=== PATIENT | female | born 1965 | race Caucasian/White ===

== ENCOUNTER 2020-08-14 10:04 | Outpatient (REF) | payer MEDICARE, MEDICAID, SELFPAY ==
--- NOTE | 2020-08-14 10:55 | XR_ITS ---
EXAMINATION: XR CHEST 2 VIEWS CLINICAL INFORMATION: Pneumonia. COMPARISON: Priors are unavailable. TECHNIQUE: PA and lateral radiographs of the chest were obtained. FINDINGS: No focal consolidation, pulmonary edema, or pleural effusion. The cardiomediastinal silhouette is normal. 2 neurostimulator leads overlie the midthoracic spinal canal. IMPRESSION: No acute cardiopulmonary disease.
[2020-08-14 11:24] LABS: Hematocrit 36.9 % (37-47); Hemoglobin 11.5 g/dl (12.0-16.0); Mean Corpuscular HGB Conc 31.2 g/dl (31.0-35.0); Mean Corpuscular Hemoglobin 27.8 pg (27.0-33.0); Mean Corpuscular Volume 89.1 fL (80-98); Mean Platelet Volume 11.3 fL (9.4-12.3); Platelet Count 399 X10*3/uL (160-400); Red Blood Count 4.14 X10*6/uL (4.20-5.50); White Blood Count 6.7 X10*3/uL (4.8-10.8)
== END 2020-08-14 10:05 | disposition home or self-care (01) ==
LOC: HO.HMGCLDS 10:04
PROVIDERS: PCP Nurse Practitioner Family; Visit Provider Nurse Practitioner Family
DX: J18.9 Pneumonia, unspecified organism (principal)
CPT/HCPCS: 36415; 71046; 85027

== ENCOUNTER → 2020-08-20 11:41 | Outpatient (BNVA) | payer MEDICARE, MEDICAID, SELFPAY | PROVIDERS: Visit Provider Internal Medicine | DX: F11.20 Opioid dependence, uncomplicated (principal); F17.210 Nicotine dependence, cigarettes, uncomplicated; Z71.6 Tobacco abuse counseling | CPT/HCPCS: 99212 ==

== ENCOUNTER → 2020-09-03 10:03 | Outpatient (BNVA) | payer MEDICARE, MEDICAID, SELFPAY | PROVIDERS: Visit Provider Internal Medicine | DX: F11.99 Opioid use, unspecified with unspecified opioid-induced disorder (principal) | CPT/HCPCS: 80305; 99211 ==

== ENCOUNTER → 2020-09-17 10:13 | Outpatient (BNVA) | payer MEDICARE, MEDICAID, SELFPAY | PROVIDERS: Visit Provider Internal Medicine | DX: F11.20 Opioid dependence, uncomplicated (principal) | CPT/HCPCS: 80305; 99212 ==

== ENCOUNTER 2020-10-01 | Outpatient (REF) | payer MEDICARE, MEDICAID, SELFPAY | END 2020-10-01 00:01 | disposition home or self-care (01) | LOC: HO.LAB | PROVIDERS: Visit Provider Internal Medicine | DX: F11.99 Opioid use, unspecified with unspecified opioid-induced disorder (principal) | CPT/HCPCS: 80348 ==

== ENCOUNTER → 2020-10-01 10:06 | Outpatient (BNVA) | payer MEDICARE, MEDICAID, SELFPAY | PROVIDERS: Visit Provider Internal Medicine | DX: F11.20 Opioid dependence, uncomplicated (principal) | CPT/HCPCS: 80305; 80348; Q3014 ==

== ENCOUNTER → 2020-10-14 10:51 | Outpatient (BNVA) | payer MEDICARE, MEDICAID, SELFPAY | PROVIDERS: Visit Provider Internal Medicine | DX: Z76.89 Persons encountering health services in other specified circumstances (principal) ==

== ENCOUNTER → 2020-10-28 13:51 | Outpatient (BNVA) | payer MEDICARE, MEDICAID, SELFPAY | PROVIDERS: PCP Nurse Practitioner Family; Visit Provider Internal Medicine | DX: F11.99 Opioid use, unspecified with unspecified opioid-induced disorder (principal); Z76.89 Persons encountering health services in other specified circumstances ==

== ENCOUNTER → 2020-11-11 12:12 | Outpatient (BNVA) | payer MEDICARE, MEDICAID, SELFPAY | PROVIDERS: PCP Nurse Practitioner Family; Visit Provider Internal Medicine | DX: Z76.89 Persons encountering health services in other specified circumstances (principal) ==

== ENCOUNTER → 2020-11-25 11:02 | Outpatient (BNVA) | payer MEDICARE, MEDICAID, SELFPAY | PROVIDERS: Visit Provider Internal Medicine | DX: F11.99 Opioid use, unspecified with unspecified opioid-induced disorder (principal) | CPT/HCPCS: 99212 ==

== ENCOUNTER → 2020-12-30 11:50 | Outpatient (BNVA) | payer MEDICARE, MEDICAID, SELFPAY | PROVIDERS: Visit Provider Internal Medicine | DX: Z13.89 Encounter for screening for other disorder (principal) | CPT/HCPCS: Q3014 ==

== ENCOUNTER → 2021-01-27 10:02 | Outpatient (BNVA) | payer MEDICARE, MEDICAID, SELFPAY | PROVIDERS: Visit Provider Internal Medicine | DX: F11.20 Opioid dependence, uncomplicated (principal) | CPT/HCPCS: 80305; 99211 ==

== ENCOUNTER → 2021-02-24 10:34 | Outpatient (BNVA) | payer MEDICARE, MEDICAID, SELFPAY | PROVIDERS: Visit Provider Internal Medicine | DX: Z51.81 Encounter for therapeutic drug level monitoring (principal) | CPT/HCPCS: 80305; 99211 ==

== ENCOUNTER → 2021-03-24 09:43 | Outpatient (BNVA) | payer MEDICARE, MEDICAID, SELFPAY | PROVIDERS: Visit Provider Internal Medicine | DX: F11.20 Opioid dependence, uncomplicated (principal) | CPT/HCPCS: 80305; 99212 ==

== ENCOUNTER → 2021-04-21 12:58 | Outpatient (BNVA) | payer MEDICARE, MEDICAID, SELFPAY | PROVIDERS: Visit Provider Internal Medicine | DX: F11.99 Opioid use, unspecified with unspecified opioid-induced disorder (principal); Z51.81 Encounter for therapeutic drug level monitoring | CPT/HCPCS: 80305; 99211 ==

== ENCOUNTER → 2021-05-19 08:44 | Outpatient (BNVA) | payer MEDICARE, MEDICAID, SELFPAY | PROVIDERS: Visit Provider Internal Medicine | DX: Z51.81 Encounter for therapeutic drug level monitoring (principal) | CPT/HCPCS: 80305; 99211 ==

== ENCOUNTER → 2021-06-24 11:48 | Outpatient (BNVA) | payer MEDICARE, MEDICAID, SELFPAY | PROVIDERS: Visit Provider Internal Medicine | DX: F11.20 Opioid dependence, uncomplicated (principal) | CPT/HCPCS: 80305; 99212 ==

== ENCOUNTER 2021-07-09 06:15 | Outpatient (REF) | payer MEDICARE, MEDICAID, SELFPAY ==
[2021-07-09 11:20] LABS: Glucose Urine UA NEG (NEG); Leukocyte Esterase Urine NEG (NEG); Nitrite Urine NEG (NEG); Specific Gravity - Urine <= 1.005 (1.005-1.025); Urine Blood NEG (NEG); Urine Ketones NEG (NEG); Urine Protein NEG (NEG-TRACE)
[2021-07-09 11:23] LABS: Appearance Urine CLEAR; Color Urine YELLOW
[2021-07-09 12:09] LABS: Alanine Aminotransferase 14 U/L (0-31); Albumin Level 4.1 g/dL (3.5-5.0); Alkaline Phosphatase 96 U/L (39-117); Anion Gap 12 (12-20); Aspartate Amino Transferase 16 U/L (5-31); Bilirubin Total 0.3 mg/dL (0.0-1.0); Blood Urea Nitrogen 10 mg/dL (9-16); Calcium 9.1 mg/dL (8.4-10.2); Carbon Dioxide 27 mmol/L (22-29); Chloride 104 mmol/L (96-108); Cholesterol 172 mg/dL; Estimated Glomerular Filt Rate > 60; Glucose Fasting 103 mg/dL (60-99); HDL Cholesterol 46 mg/dL; LDL Cholesterol Calculated 103 mg/dl; Potassium 4.2 mmol/L (3.3-5.1); Sodium 139 mmol/L (135-145); Total Protein 7.1 g/dL (6.5-8.0); Triglycerides 118 mg/dL
[2021-07-09 12:10] LABS: TSH reflex Free T4 7.24 uIU/mL (0.32-4.0)
[2021-07-09 13:50] LABS: Free T4 (Free Thyroxine) 0.79 ng/dL (0.71-1.85)
== END 2021-07-09 06:16 | disposition home or self-care (01) ==
LOC: HO.HMGCLDS 06:15
PROVIDERS: PCP Nurse Practitioner Family; Visit Provider Nurse Practitioner Family
DX: I83.11 Varicose veins of right lower extremity with inflammation (principal); M79.89 Other specified soft tissue disorders
CPT/HCPCS: 36415; 80053; 80061; 81003; 84439; 84443; 99202

== ENCOUNTER → 2021-07-22 09:37 | Outpatient (BNVA) | payer MEDICARE, MEDICAID, SELFPAY | PROVIDERS: Visit Provider Internal Medicine | DX: F11.99 Opioid use, unspecified with unspecified opioid-induced disorder (principal); F17.210 Nicotine dependence, cigarettes, uncomplicated; Z96.651 Presence of right artificial knee joint; Z91.09 Other allergy status, other than to drugs and biological substances; Z51.81 Encounter for therapeutic drug level monitoring; Z79.899 Other long term (current) drug therapy | CPT/HCPCS: 80305; 99212 ==

== ENCOUNTER 2021-08-03 10:25 | Outpatient (REF) | payer MEDICARE, MEDICAID, SELFPAY ==
--- NOTE | ~2021-08-03 | US_ITS ---
EXAMINATION: RIGHT and LEFT LOWER EXTREMITY VENOUS ULTRASOUND (Reflux Exam) CLINICAL INDICATION: leg pain and varicose veins. COMPARISON: None. TECHNIQUE: Color flow triplex imaging and compression Doppler was performed to evaluate both the deep and the superficial systems bilaterally. To evaluate the superficial system, the examination was performed in the upright position. Color-flow Doppler ultrasound and compression ultrasound were utilized. In addition, maneuvers were utilized to demonstrate reflux. FINDINGS: 1. DEEP VENOUS ULTRASOUND OF THE RIGHT LOWER EXTREMITY: Respiratory variation, normal compression and augmented flow are noted in the right common femoral vein as well as the right popliteal vein and there is no evidence of deep venous thrombosis at these locations. There is no evidence of reflux in the deep system in either the common femoral vein or the popliteal vein. There is no evidence of a Cortez's cyst. 2. SUPERFICIAL ULTRASOUND WITH DOPPLER OF RIGHT LOWER EXTREMITY: The right great saphenous vein at the saphenofemoral junction measures 8 mm, at the mid thigh 5 mm, pfuky-bzz-bmpc 4 mm, phqej-ohb-gose 3 mm, at mid calf 3 mm and at the ankle measures 3 mm. There is no reflux demonstrated in the right great saphenous vein. There is an accessory lateral greater saphenous vein that measures 3 to 4 mm and does not demonstrate reflux and The right small saphenous vein measures 2-3 mm and shows no reflux. 3. DEEP VENOUS ULTRASOUND OF THE LEFT LOWER EXTREMITY: Respiratory variation, normal compression and augmented flow are noted in the left common femoral vein as well as the left popliteal vein and there is no evidence of deep venous thrombosis at these locations. There is deep venous reflux in the left common femoral vein measuring 0.6 seconds. There is no evidence of 5.3 x 1.5 x 3.2 cm Cortez's cyst. 4. SUPERFICIAL ULTRASOUND WITH DOPPLER OF LEFT LOWER EXTREMITY: Left great saphenous vein at the saphenofemoral junction measures 7 mm, at the mid thigh 3 mm, mqpdq-shk-mxtl 3 mm, vfpor-fzp-qqhx 3 mm, at mid calf 2 mm and at the ankle measures 2 mm. There is no reflux demonstrated in the left great saphenous vein. There is an accessory lateral greater saphenous vein that measures 2 to 3 mm and does not demonstrate reflux The left small saphenous vein measures 2-3 mm and shows no reflux. US/US venous duplex LE BI IMPRESSION: 1. No evidence of DVT. Left popliteal vein 0.6 seconds deep venous reflux. 2. The saphenous systems are competent bilaterally.
== END 2021-08-03 10:26 | disposition home or self-care (01) ==
LOC: HO.US 10:25
PROVIDERS: PCP Nurse Practitioner Family; Visit Provider Surgery Vascular Surgery
DX: Z13.89 Encounter for screening for other disorder (principal)
CPT/HCPCS: 93970

== ENCOUNTER 2021-08-03 14:45 | Outpatient (REF) | payer MEDICARE, MEDICAID, SELFPAY ==
[2021-08-03 16:32] LABS: Hematocrit 36.3 % (37-47); Hemoglobin 11.6 g/dl (12.0-16.0); Mean Corpuscular Hemoglobin 28.9 pg (27.0-33.0); Mean Corpuscular Volume 90.3 fL (80-98); Mean Platelet Volume 11.2 fL (9.4-12.3); Platelet Count 274 X10*3/uL (160-400); Red Blood Count 4.02 X10*6/uL (4.20-5.50); Red Cell Distribution Width 13.2 % (11.0-16.0); White Blood Count 7.1 X10*3/uL (4.8-10.8)
[2021-08-03 16:56] LABS: Anion Gap 12 (12-20); Blood Urea Nitrogen 10 mg/dL (9-16); Carbon Dioxide 28 mmol/L (22-29); Chloride 105 mmol/L (96-108); Estimated Glomerular Filt Rate > 60; Glucose Random 82 mg/dL (60-115); Potassium 4.3 mmol/L (3.3-5.1); Sodium 141 mmol/L (135-145)
== END 2021-08-03 14:46 | disposition home or self-care (01) ==
LOC: HO.HMGCLDS 14:45
PROVIDERS: PCP Nurse Practitioner Family; Visit Provider Internal Medicine
DX: R21 Rash and other nonspecific skin eruption (principal); I83.813 Varicose veins of bilateral lower extremities with pain
CPT/HCPCS: 36415; 80048; 85027; 86140; 93970

== ENCOUNTER → 2021-08-13 10:05 | Outpatient (BNVA) | payer MEDICARE, MEDICAID, SELFPAY | PROVIDERS: PCP Nurse Practitioner Family; Visit Provider Surgery Vascular Surgery | DX: M79.89 Other specified soft tissue disorders (principal) | CPT/HCPCS: 99212 ==

== ENCOUNTER 2021-08-19 09:53 | Outpatient (REF) | payer MEDICARE, MEDICAID, SELFPAY ==
[2021-08-19 18:28] LABS: Fentanyl, urine Not Detected (Not Detect)
== END 2021-08-19 09:54 | disposition home or self-care (01) ==
LOC: HO.LNP 09:53
PROVIDERS: PCP Nurse Practitioner Family; Visit Provider Internal Medicine
DX: F11.20 Opioid dependence, uncomplicated (principal); F32.9 Major depressive disorder, single episode, unspecified; F17.210 Nicotine dependence, cigarettes, uncomplicated; J30.2 Other seasonal allergic rhinitis; Z88.8 Allergy status to other drugs, medicaments and biological substances
CPT/HCPCS: 80305; 80307; 99212

== ENCOUNTER → 2021-09-16 09:47 | Outpatient (BNVA) | payer MEDICARE, MEDICAID, SELFPAY | PROVIDERS: PCP Nurse Practitioner Family; Visit Provider Internal Medicine | DX: F11.20 Opioid dependence, uncomplicated (principal) | CPT/HCPCS: 80305; 99212 ==

== ENCOUNTER → 2021-09-30 08:33 | Outpatient (REF) | payer MEDICARE, MEDICAID, SELFPAY ==
--- NOTE | 2021-09-30 08:37 | CA_ITS ---
INDICATIONS: Murmur, Unspecified HT: 5'7 WT: 240 BSA: BP: 120/60 STENOGRAPHER: VH M-MODE MEASUREMENTS: LVd: 5.22 LVs: 2.9 IVSd: 1.02 IVSs: LVPWd: 1.06 LVPWs: ASC.Aorta: 3.0 RVd: 3.84 AO Root: 2.8 LA: 4.2 AV Cusps: LVOT: 2.1 EF%: 60-65% TAPSE: 2.33 OTHER: EFFUSION: O THROMBUS: O RVSP: 16 mmHg Mitral E/A: 101 / 62.6 = 1.6 E Med: 6.31 E Lat. 13.6 DOPPLER MEASUREMENTS: AORTIC: PP mmHg MP mmHg Velocity: 182 m/s Valve Area: 1.88 cm^2 PULMONIC: PP mmHg Velocity: 107 m/s TRICUSPID: PP mmHg Velocity: 144 m/s RA Vol. 25.9 IVC: 2.49 LA Vol. 41.5 RVS 16.4 MTDD
--- NOTE | 2021-09-30 08:37 | CA_ITS ---
Transthoracic Echocardiogram Patient (Last, First, Middle): Aaliyah Espinoza, Gender: Female Date of : 1965 Age: 56 Procedure Date: 09/30/2021 Procedure Type: Transthoracic Echocardiogram Location: OP Height: 170.18 cm Weight: 108.86 kg BSA: 2.18 m2 Heart Rate: bpm BP: 120 / 60 mmHg Youth Development Professional: Referring MD: Trevor Ahn [facility] Possum Trapper: Jono Tovar MD Symptoms: R01.1 - Cardiac murmur, unspecified Study Quality: Fair ECG Rhythm: Sinus Conclusions: - 1. Normal LV systolic function with regional wall motion abnormality of the basal inferior inferoseptal wall 2. Mildly dilated left atrium 3. Calcification noted at the base of aortic valve leaflets with mild aortic stenosis 4. Normal RV systolic pressure 5. No pericardial effusion Findings Left Ventricle Normal left ventricular size, thickness, and systolic function. The visually estimated ejection fraction is between 60-65%. There is evidence of regional wall motion abnormalities. Spectral Doppler is indicative of a normal filling pattern. Wall Motion Rest Echo Findings The basal inferior and basal inferoseptal segments are akinetic. All other scored wall segments showed normal motion. Right Ventricle Normal right ventricular cavity size and systolic function. Atria The left atrium is mildly dilated. Interatrial shunt cannot be excluded. The right atrium is normal in size. Aortic Valve There is moderate calcification of the aortic valve. There are fibrocalcifications on the aortic valve wall. There is mild aortic valve stenosis. The peak aortic gradient is 14 mmHg.The mean gradient is 6 mmHg. The aortic valve area is 1.88 cm2. There is no aortic valve regurgitation. Mitral Valve Normal mitral valve structure and function. There is trace mitral valve regurgitation. There is no mitral valve stenosis. Pulmonic Valve The pulmonic valve was not well visualized. Tricuspid Valve Likely normal tricuspid valve structure and function. There is trace tricuspid valve regurgitation. The right ventricular systolic pressure is normal. The right ventricular systolic pressure is 16 mmHg. Normal right atrial pressure. There is no evidence of pulmonary hypertension. Great Vessels All visible segments of the aorta are normal in size. The pulmonary artery was not well visualized. Venous The inferior vena cava is mildly dilated and collapses greater than 50% with inspiration. Pericardium/Pleural There is no evidence of pericardial effusion. Prior Study Comparison No previous study in the last 5 years for comparison Measurements 2D Linear Measurements IVSd: 1.02 0.6-0.9/0.6-1.0 cm LVIDd: 5.22 3.9-5.3/4.2-5.9 cm LVIDd Index: 2.39 2.4-3.2/2.2-3.1 cm/m2 LVIDs: 2.90 2.0-3.6 cm LVPWd: 1.06 0.7-1.1 cm Ao Root: 2.80 2.1-3.5 cm LA Diam: 4.20 2.7-3.8/3.0-4.0 cm LAIDs Index: 1.93 1.5-2.3 cm/m2 LV Mass: 256.65 67-162/88-224 g LV Mass Index: 117.73 43-95/49-115 g/m2 LVOT Diam: 2.10 3.0+(-)1.3 cm 2D Systolic Function EF 4C: 55.80 >55% EF 2C: 66.90 >55% EF BiP: 62.40 >55% Mitral Valve MV Pk E: 1.01 MV PK A: 0.63 MV Decel Time: 208.00 E/A: 1.60 E'Lateral: 13.60 E'Medial: 6.31 E/E' Med: 16.00 E/E' Lat: 7.40 PHT: 61.00 MVA PHT: 3.61 Decel [place]: 4.87 Aortic Valve AoV Pk Cristhian: 1.85 AoV Mn Cristhian: 1.16 AoV VTI: 0.40 AoV Pk Grad: 14.00 Aov Mn Grad: 6.00 KENNY Cont.VTI: 1.88 LVOT LVOT Pk Cristhian: 0.86 LVOT Mn Cristhian: 0.58 LVOT VTI: 0.22 LVOT Pk Grad: 3.00 LVOT Mn Grad: 2.00 LVOT Diam: 2.10 LVOT Area: 3.46 Diastolic Function MV Pk E: 1.01 MV Pk A: 0.63 E/A: 1.60 E'Medial: 6.31 E/E' Med: 16.00 E' Laterial: 13.60 E/E' Lat: 7.40 Right Ventricle TAPSE (mm): 2.33 Tricuspid Valve TR Pk Cristhian: 1.44 TR Pk Grad: 8.00 RA Press: 8.00 RVSP: 16.00 Great Vessels Aorta Ao Root-2D: 2.80 2.0-3.7 cm Ao Asc: 3.00 2.1-3.4 cm Pulmonary Valve PV Pk Cristhian: 1.05 Peak PV Grad: 4.00 Updated in Other Vendor System with Status of Final Jono Tovar MD electronically signed on 10/06/2021 8:37:53 AM with status of Final
== END ==
LOC: HO.CARD 08:33
PROVIDERS: Visit Provider Nurse Practitioner Family
DX: R01.1 Cardiac murmur, unspecified (principal)
CPT/HCPCS: 93306

== ENCOUNTER → 2021-10-16 11:43 | Outpatient (BNVA) | payer MEDICARE, MEDICAID, SELFPAY | PROVIDERS: PCP Nurse Practitioner Family; Referring Provider Nurse Practitioner Family; Visit Provider Internal Medicine | DX: Z51.81 Encounter for therapeutic drug level monitoring (principal); F11.20 Opioid dependence, uncomplicated | CPT/HCPCS: 80305; 99212 ==

== ENCOUNTER 2021-11-05 07:40 | Outpatient (REF) | payer MEDICARE, MEDICAID, SELFPAY ==
[2021-11-05 12:22] LABS: TSH reflex Free T4 4.04 uIU/mL (0.32-4.0)
[2021-11-05 13:10] LABS: Free T4 (Free Thyroxine) 0.99 ng/dL (0.71-1.85)
[2021-11-09 21:51] LABS: Thyroid Peroxidase Antibodies 1 IU/mL (<9)
== END 2021-11-05 07:41 | disposition home or self-care (01) ==
LOC: HO.HMGCLDS 07:40
PROVIDERS: PCP Nurse Practitioner Family; Visit Provider Nurse Practitioner Family
DX: E03.9 Hypothyroidism, unspecified (principal)
CPT/HCPCS: 36415; 84439; 84443; 86376

== ENCOUNTER → 2021-11-11 10:33 | Outpatient (BNVA) | payer MEDICARE, MEDICAID, SELFPAY | PROVIDERS: PCP Nurse Practitioner Family; Visit Provider Internal Medicine | DX: Z51.81 Encounter for therapeutic drug level monitoring (principal); F11.20 Opioid dependence, uncomplicated | CPT/HCPCS: 80305 ==

== ENCOUNTER → 2021-12-09 10:04 | Outpatient (BNVA) | payer MEDICARE, MEDICAID, SELFPAY | PROVIDERS: PCP Nurse Practitioner Family; Visit Provider Internal Medicine | DX: Z51.81 Encounter for therapeutic drug level monitoring (principal); F11.20 Opioid dependence, uncomplicated | CPT/HCPCS: 80305; 99211 ==

== ENCOUNTER 2021-12-23 09:04 | Outpatient (REF) | payer MEDICARE, MEDICAID, SELFPAY ==
--- NOTE | ~2021-12-23 | MM_ITS ---
EXAMINATION: MM SCREENING DIGITAL BREAST TOMOSYNTHESIS, BILATERAL CLINICAL INFORMATION: Screening. Asymptomatic. The lifetime risk of breast cancer based on the Tyrer-Cuzick Model is 5%. COMPARISON: Mammography: 10/03/2017 TECHNIQUE: Digital breast tomosynthesis is performed in both the craniocaudal and mediolateral oblique views along with computer-aided detection (CAD). Synthesized 2D images are generated from the tomosynthesis. Additional left MLO view is provided. FINDINGS: There are scattered areas of fibroglandular density (ACR BI-RADS breast composition Category b). There are no significant masses, abnormal calcifications, or other abnormalities. Parenchymal pattern is similar to prior exam. There is no developing density or architectural abnormality. The axilla and skin contours are unremarkable. No significant changes. MM/MM tomosynthesis screening BI IMPRESSION: No mammographic evidence of malignancy. ASSESSMENT: BI-RADS 1: Negative RECOMMENDATION: Routine annual mammography screening. This patient's information was entered into a reminder system with a target due date for their next mammogram.
== END 2021-12-23 09:05 | disposition home or self-care (01) ==
LOC: HO.MAMMO 09:04
PROVIDERS: Visit Provider Nurse Practitioner Family
DX: Z12.31 Encounter for screening mammogram for malignant neoplasm of breast (principal)
CPT/HCPCS: 77063; 77067

== ENCOUNTER → 2022-01-05 09:58 | Outpatient (BNVA) | payer MEDICARE, MEDICAID, SELFPAY | PROVIDERS: PCP Nurse Practitioner Family; Visit Provider Internal Medicine | DX: Z51.81 Encounter for therapeutic drug level monitoring (principal); F11.20 Opioid dependence, uncomplicated | CPT/HCPCS: 80305 ==

== ENCOUNTER 2022-01-27 15:14 | Outpatient (REF) | payer MEDICARE, MEDICAID, SELFPAY ==
--- NOTE | ~2022-01-27 | XR_ITS ---
EXAMINATION: XR FOOT, LEFT CLINICAL INFORMATION: Left foot pain COMPARISON: None TECHNIQUE: AP, lateral, and oblique views of the left foot. FINDINGS: There is a prominent plantar calcaneal spur. There is prominent calcification which appears segmented about the site of insertion of the Achilles tendon on the calcaneus. There is some adjacent soft tissue prominence which may be inflammatory in nature or possibly related to an Achilles tendon rupture. XR/XR foot LT 2V IMPRESSION: Calcaneal spurs with segmentation of Achilles spur and adjacent soft tissue prominence as described. Achilles tendon rupture not excluded.
== END 2022-01-27 15:15 | disposition home or self-care (01) ==
LOC: HO.HMGCX 15:14
PROVIDERS: PCP Nurse Practitioner Family; Visit Provider Nurse Practitioner Family
DX: M79.672 Pain in left foot (principal)
CPT/HCPCS: 73620

== ENCOUNTER → 2022-02-02 11:42 | Outpatient (BNVA) | payer MEDICARE, MEDICAID, SELFPAY | PROVIDERS: PCP Nurse Practitioner Family; Visit Provider Internal Medicine | DX: F11.20 Opioid dependence, uncomplicated (principal) | CPT/HCPCS: 99211 ==

== ENCOUNTER → 2022-03-02 10:02 | Outpatient (BNVA) | payer MEDICARE, MEDICAID, SELFPAY | PROVIDERS: PCP Nurse Practitioner Family; Visit Provider Internal Medicine | DX: F11.20 Opioid dependence, uncomplicated (principal) | CPT/HCPCS: 80305; 99212 ==

== ENCOUNTER 2022-03-04 09:35 | Outpatient (REF) | payer MEDICARE, MEDICAID, SELFPAY ==
--- NOTE | ~2022-03-04 | XR_ITS ---
EXAMINATION: XR KNEE AP STANDING, BILATERAL CLINICAL INFORMATION: Left knee pain. COMPARISON: None TECHNIQUE: AP bilateral standing view of the knees was obtained. Lateral view each knee. FINDINGS: RIGHT KNEE: The right knee joint space is slightly higher compared to the left knee. There is a total right knee prosthesis in alignment. LEFT KNEE: There is mild genu varus deformity of the left knee. There is severe loss of medial compartment joint space with periarticular spurring in the left knee There is minimal loss of lateral compartment joint space in the left knee. No visible acute fracture, dislocation or spurring seen. The soft tissues are normal. On lateral view, there is a mild suprapatellar joint effusion. There is severe loss of patellofemoral compartment joint space. There is mild suprapatellar spurring. XR/XR knee standing BI IMPRESSION: Total right knee prosthesis in alignment. The right knee joint is slightly higher in position compared to the left knee joint space. Severe degenerative changes in medial and patellofemoral compartments with periarticular spurring. No loose bodies, acute fracture or dislocation seen. Mild suprapatellar joint effusion of the left knee is noted. Mild suprapatellar spurring.
[2022-03-04 11:15] LABS: MANUAL DIFF FLAG NO
[2022-03-04 11:28] LABS: Basophils Percent Auto 0.8 % (0-2); Eosinophils Absolute Auto 0.2 X10*3/uL (0.0-0.4); Eosinophils Percent Auto 3.8 % (0-4); Hematocrit 37.7 % (37.0-47.0); Hemoglobin 11.9 g/dl (12.0-16.0); Imm Gran Abs Auto 0.01 X10*3/uL (0.00-0.03); Imm Gran Pct Auto 0.2 % (0.0-0.4); Lymphocytes Absolute Auto 1.7 X10*3/uL (1.2-4.9); Mean Corpuscular HGB Conc 31.6 g/dl (31.0-35.0); Mean Corpuscular Hemoglobin 28.7 pg (27.0-33.0); Mean Corpuscular Volume 90.8 fL (80.0-98.0); Mean Platelet Volume 11.6 fL (9.4-12.3); Monocytes Absolute Auto 0.4 X10*3/uL (0.1-1.2); Monocytes Percent Auto 8.2 % (2-11); Neutrophils Absolute Auto 2.7 x10*3/uL (2.0-8.3); Platelet Count 222 X10*3/uL (160-400); Red Blood Count 4.15 X10*6/uL (4.20-5.50); Red Cell Distribution Width 13.5 % (11.0-16.0)
[2022-03-04 11:36] LABS: Anion Gap 9 (12-20); Blood Urea Nitrogen 13 mg/dL (9-16); Calcium 9.4 mg/dL (8.4-10.2); Carbon Dioxide 32 mmol/L (22-29); Chloride 103 mmol/L (96-108); Estimated Glomerular Filt Rate > 60; Glucose Random 95 mg/dL (60-115); Potassium 4.2 mmol/L (3.3-5.1); Sodium 140 mmol/L (135-145)
[2022-03-04 11:43] LABS: INTERNATIONAL NORM RATIO 0.9 (0.9-1.1); Prothrombin Time 9.8 SEC (9.9-13.0)
== END 2022-03-04 09:36 | disposition home or self-care (01) ==
LOC: HO.HMGCX 09:35
PROVIDERS: PCP Nurse Practitioner Family; Visit Provider Nurse Practitioner Family
DX: M25.562 Pain in left knee (principal); E78.5 Hyperlipidemia, unspecified
CPT/HCPCS: 36415; 73565; 80048; 85025; 85610

== ENCOUNTER → 2022-03-31 11:44 | Outpatient (BNVA) | payer MEDICARE, MEDICAID, SELFPAY | PROVIDERS: Visit Provider Internal Medicine | DX: Z51.81 Encounter for therapeutic drug level monitoring (principal); F11.20 Opioid dependence, uncomplicated | CPT/HCPCS: 80305; 99211 ==

== ENCOUNTER → 2022-04-28 14:03 | Outpatient (BNVA) | payer MEDICARE, MEDICAID, SELFPAY | PROVIDERS: PCP Nurse Practitioner Family; Visit Provider Internal Medicine | DX: F11.20 Opioid dependence, uncomplicated (principal) | CPT/HCPCS: 80305; 99212 ==

== ENCOUNTER → 2022-05-21 09:46 | Outpatient (BNVA) | payer MEDICARE, MEDICAID, SELFPAY | PROVIDERS: PCP Nurse Practitioner Family; Visit Provider Orthopaedic Surgery | DX: M17.12 Unilateral primary osteoarthritis, left knee (principal); Z96.651 Presence of right artificial knee joint | CPT/HCPCS: 99202 ==

== ENCOUNTER → 2022-06-30 10:06 | Outpatient (BNVA) | payer MEDICARE, MEDICAID, SELFPAY | PROVIDERS: PCP Nurse Practitioner Family; Visit Provider Internal Medicine | DX: F11.20 Opioid dependence, uncomplicated (principal); M79.89 Other specified soft tissue disorders | CPT/HCPCS: 99212 ==

== ENCOUNTER 2022-07-01 09:12 | Outpatient (REF) | payer MEDICARE, MEDICAID, SELFPAY ==
[2022-07-01 11:24] LABS: MANUAL DIFF FLAG NO
[2022-07-01 11:34] LABS: Basophils Absolute Auto 0.1 X10*3/uL (0.0-0.2); Basophils Percent Auto 1.4 % (0-2); Eosinophils Absolute Auto 0.1 X10*3/uL (0.0-0.4); Eosinophils Percent Auto 2.5 % (0-4); Hematocrit 38.8 % (37.0-47.0); Hemoglobin 12.2 g/dl (12.0-16.0); Imm Gran Abs Auto 0.02 X10*3/uL (0.00-0.03); Imm Gran Pct Auto 0.4 % (0.0-0.4); Lymphocytes Absolute Auto 2.1 X10*3/uL (1.2-4.9); Lymphocytes Percent Auto 36.5 % (20-40); Mean Corpuscular HGB Conc 31.4 g/dl (31.0-35.0); Mean Corpuscular Hemoglobin 28.2 pg (27.0-33.0); Mean Corpuscular Volume 89.6 fL (80.0-98.0); Mean Platelet Volume 11.4 fL (9.4-12.3); Monocytes Absolute Auto 0.4 X10*3/uL (0.1-1.2); Monocytes Percent Auto 7.3 % (2-11); Neutrophils Absolute Auto 2.9 x10*3/uL (2.0-8.3); Neutrophils Percent Auto 51.9 % (45-73); Platelet Count 258 X10*3/uL (160-400); Red Blood Count 4.33 X10*6/uL (4.20-5.50); Red Cell Distribution Width 13.3 % (11.0-16.0); White Blood Count 5.6 X10*3/uL (4.8-10.8)
[2022-07-01 11:38] LABS: INTERNATIONAL NORM RATIO 0.8 (0.9-1.1); Prothrombin Time 9.6 SEC (10.0-13.1)
[2022-07-01 11:40] LABS: Partial Thromboplastin Time 33.1 SEC (26.0-36.4)
[2022-07-01 11:49] LABS: Alanine Aminotransferase 23 U/L (0-31); Albumin Level 4.2 g/dL (3.5-5.0); Alkaline Phosphatase 84 U/L (39-117); Anion Gap 14 (12-20); Aspartate Amino Transferase 17 U/L (5-31); Bilirubin Direct 0.2 mg/dL (0.0-0.5); Bilirubin Total 0.2 mg/dL (0.0-1.0); Blood Urea Nitrogen 10 mg/dL (9-16); Calcium 9.2 mg/dL (8.4-10.2); Carbon Dioxide 28 mmol/L (22-29); Chloride 103 mmol/L (96-108); Estimated Glomerular Filt Rate > 60; Glucose Random 90 mg/dL (60-115); Potassium 3.9 mmol/L (3.3-5.1); Sodium 141 mmol/L (135-145); Total Protein 7.4 g/dL (6.5-8.0)
[2022-07-01 11:59] LABS: ~HepC Num1 0.09 S/CO (0.00-0.79); ~Hepatitis C Antibody Nonreactive (Nonreactive)
[2022-07-01 12:02] LABS: TSH reflex Free T4 2.25 uIU/mL (0.32-4.0)
[2022-07-01 12:16] LABS: Appearance Urine Clear; Color Urine Yellow; Glucose Urine UA Negative (Negative); Leukocyte Esterase Urine Negative (Negative); Nitrite Urine Negative (Negative); Specific Gravity - Urine 1.015 (1.005-1.025); Urine Blood Negative (Negative); Urine Ketones Negative (Negative); Urine Protein Negative (Neg-Trace)
[2022-07-07 00:22] LABS: FIB-ALT 21 U/L (6-29); FIB-Alpha-2-Macroglobulin 184 mg/dL (106-279); FIB-Apolipoprotein A1 144 mg/dL (101-198); FIB-GGT 17 U/L (3-70); FIB-Haptoglobin 194 mg/dL (43-212); FIB-Total Bilirubin 0.4 mg/dL (0.2-1.2); Liver Fibrosis Stage F0; Nec Inflam Act Grade A0; Nec Inflam Act Score 0.06
== END 2022-07-01 09:13 | disposition home or self-care (01) ==
LOC: HO.HMGCLDS 09:12
PROVIDERS: Absent Provider Internal Medicine; PCP Nurse Practitioner Family; Visit Provider Nurse Practitioner Family
DX: Z01.818 Encounter for other preprocedural examination (principal); M79.89 Other specified soft tissue disorders; F11.99 Opioid use, unspecified with unspecified opioid-induced disorder
CPT/HCPCS: 36415; 80053; 81003; 81596; 82248; 84443; 85025; 85610; 85730; 86803

== ENCOUNTER → 2022-07-12 10:23 | Outpatient (BNVA) | payer MEDICARE, MEDICAID, SELFPAY | PROVIDERS: PCP Nurse Practitioner Family; Visit Provider Orthopaedic Surgery | DX: M17.12 Unilateral primary osteoarthritis, left knee (principal) | CPT/HCPCS: 20610; 99212; J1100 ==

== ENCOUNTER → 2022-08-25 13:07 | Outpatient (BNVA) | payer MEDICARE, MEDICAID, SELFPAY | PROVIDERS: Visit Provider Internal Medicine | DX: F11.20 Opioid dependence, uncomplicated (principal); M79.89 Other specified soft tissue disorders; Z51.81 Encounter for therapeutic drug level monitoring; Z79.899 Other long term (current) drug therapy | CPT/HCPCS: 99212 ==

== ENCOUNTER → 2022-10-20 10:09 | Outpatient (BNVA) | payer MEDICARE, MEDICAID, SELFPAY | PROVIDERS: PCP Nurse Practitioner Family; Visit Provider Internal Medicine | DX: F11.20 Opioid dependence, uncomplicated (principal) | CPT/HCPCS: 99212 ==

== ENCOUNTER → 2022-12-15 08:58 | Outpatient (BNVA) | payer MEDICARE, MEDICAID, SELFPAY | PROVIDERS: PCP Nurse Practitioner Family; Visit Provider Nurse Practitioner Psychiatric/Mental Health | DX: Z51.81 Encounter for therapeutic drug level monitoring (principal); F11.21 Opioid dependence, in remission | CPT/HCPCS: 80305; 99212 ==

== ENCOUNTER → 2023-02-09 09:00 | Outpatient (BNVA) | payer MEDICARE, MEDICAID, SELFPAY | PROVIDERS: PCP Nurse Practitioner Family; Visit Provider Nurse Practitioner Psychiatric/Mental Health | DX: Z51.81 Encounter for therapeutic drug level monitoring (principal); F11.21 Opioid dependence, in remission | CPT/HCPCS: 99212 ==

== ENCOUNTER → 2023-03-09 10:27 | Outpatient (BNVA) | payer MEDICARE, MEDICAID, SELFPAY | PROVIDERS: PCP Nurse Practitioner Family; Visit Provider Nurse Practitioner Psychiatric/Mental Health | DX: Z51.81 Encounter for therapeutic drug level monitoring (principal); F11.21 Opioid dependence, in remission | CPT/HCPCS: 80305; 99212 ==

== ENCOUNTER 2023-03-22 14:57 | Outpatient (REF) | payer MEDICARE, MEDICAID, SELFPAY ==
--- NOTE | ~2023-03-22 | XR_ITS ---
EXAMINATION: XR FOOT, RIGHT CLINICAL INFORMATION: Contusion COMPARISON: None available. TECHNIQUE: AP, lateral, and oblique views of the right foot. FINDINGS: Bone alignment is normal. No fracture or dislocation. There are degenerative changes seen at the talar navicular, navicular cuneiform and cuneiform metatarsal joints on the lateral view with small osteophytes. There are degenerative changes at the anterior tibiotalar joint. There are large calcaneal spurs. There is question of soft tissue swelling over the dorsal foot. XR/XR foot RT min 3V IMPRESSION: No fracture or dislocation. Degenerative changes of the mid foot and ankle.
== END 2023-03-22 14:58 | disposition home or self-care (01) ==
LOC: HO.HMGCX 14:57
PROVIDERS: PCP Nurse Practitioner Family; Visit Provider Internal Medicine
DX: S90.31XA Contusion of right foot, initial encounter (principal)
CPT/HCPCS: 73630

== ENCOUNTER → 2023-04-05 10:13 | Outpatient (BNVA) | payer MEDICARE, MEDICAID, SELFPAY | PROVIDERS: PCP Nurse Practitioner Family; Visit Provider Nurse Practitioner Psychiatric/Mental Health | DX: F11.20 Opioid dependence, uncomplicated (principal) | CPT/HCPCS: 80305; 99212 ==

== ENCOUNTER 2023-04-12 07:08 | Outpatient (REF) | payer MEDICARE, MEDICAID, SELFPAY ==
[2023-04-12 11:16] LABS: MANUAL DIFF FLAG NO
[2023-04-12 11:18] LABS: Appearance Urine Clear; Color Urine Dark Yellow; Glucose Urine UA Negative (Negative); Leukocyte Esterase Urine Trace (Negative); Nitrite Urine Negative (Negative); Specific Gravity - Urine 1.025 (1.005-1.025); UMIC TRIGGER UACC YES; Urine Blood Negative (Negative); Urine Ketones Trace mg/dL (Negative); Urine Protein Negative (Neg-Trace)
[2023-04-12 11:23] LABS: Bacteria Urine None Seen (None Seen); Hyaline Casts Urine 0-2 /LPF (0-2); Squamous Epithelial Cell Urine 0-2 /HPF (0-2); WBC Urine 0-5 /HPF (0-5)
[2023-04-12 11:34] LABS: Basophils Absolute Auto 0.1 X10*3/uL (0.0-0.2); Basophils Percent Auto 1.4 % (0-2); Eosinophils Absolute Auto 0.2 X10*3/uL (0.0-0.4); Eosinophils Percent Auto 4.1 % (0-4); Hematocrit 36.5 % (37.0-47.0); Hemoglobin 11.6 g/dl (12.0-16.0); Imm Gran Abs Auto 0.01 X10*3/uL (0.00-0.03); Imm Gran Pct Auto 0.2 % (0.0-0.4); Lymphocytes Absolute Auto 2.3 X10*3/uL (1.2-4.9); Lymphocytes Percent Auto 39.8 % (20-40); Mean Corpuscular HGB Conc 31.8 g/dl (31.0-35.0); Mean Corpuscular Hemoglobin 29.3 pg (27.0-33.0); Mean Corpuscular Volume 92.2 fL (80.0-98.0); Mean Platelet Volume 11.7 fL (9.4-12.3); Monocytes Absolute Auto 0.4 X10*3/uL (0.1-1.2); Monocytes Percent Auto 7.5 % (2-11); Neutrophils Absolute Auto 2.8 x10*3/uL (2.0-8.3); Platelet Count 237 X10*3/uL (160-400); Red Blood Count 3.96 X10*6/uL (4.20-5.50); Red Cell Distribution Width 13.2 % (11.0-16.0); White Blood Count 5.9 X10*3/uL (4.8-10.8)
[2023-04-12 11:57] LABS: Alanine Aminotransferase 34 U/L (0-31); Albumin Level 4.2 g/dL (3.5-5.0); Alkaline Phosphatase 84 U/L (39-117); Anion Gap 11 (12-20); Aspartate Amino Transferase 25 U/L (5-31); Bilirubin Total 0.4 mg/dL (0.0-1.0); Blood Urea Nitrogen 11 mg/dL (9-16); Calcium 9.1 mg/dL (8.4-10.2); Carbon Dioxide 29 mmol/L (22-29); Chloride 103 mmol/L (96-108); Cholesterol 144 mg/dL; Estimated Glomerular Filt Rate > 60; Glucose Fasting 112 mg/dL (60-99); HDL Cholesterol 42 mg/dL; LDL Cholesterol Calculated 83 mg/dl; Potassium 3.6 mmol/L (3.3-5.1); Sodium 139 mmol/L (135-145); Total Protein 7.1 g/dL (6.5-8.0); Triglycerides 99 mg/dL
[2023-04-12 12:16] LABS: TSH reflex Free T4 2.87 uIU/mL (0.32-4.0)
[2023-04-14 16:59] LABS: TS Negative Control Passed; TS Panel A 0; TS Panel B 0; TS Positive Control Passed; TSpotTB Negative (Negative)
== END 2023-04-12 07:09 | disposition home or self-care (01) ==
LOC: HO.HMGCLDS 07:08
PROVIDERS: PCP Nurse Practitioner Family; Visit Provider Nurse Practitioner Family
DX: E03.9 Hypothyroidism, unspecified (principal); I10 Essential (primary) hypertension; Z11.1 Encounter for screening for respiratory tuberculosis; F17.210 Nicotine dependence, cigarettes, uncomplicated
CPT/HCPCS: 36415; 80053; 80061; 81001; 84443; 85025; 86481

== ENCOUNTER 2023-04-14 13:32 | Outpatient (REF) | payer MEDICARE, MEDICAID, SELFPAY ==
--- NOTE | ~2023-04-14 | XR_ITS ---
EXAMINATION: XR CHEST CLINICAL INFORMATION: Nicotine dependence. COMPARISON: Chest radiographs dated 08/14/2020. TECHNIQUE: 2 views of the chest were obtained. FINDINGS: The lungs are clear. There are no pleural effusions. The heart and mediastinal structures are unremarkable. Spinal stenosis and leads are seen with leads terminating at T7-8. XR/XR chest 2V IMPRESSION: No acute cardiopulmonary process.
[2023-04-15 03:04] LABS: HBS Num1 0.21 mIU/mL (0-7.99); HBc Num1 0.08 S/CO (0.00-0.79); HBsAGNum1 0.34 S/CO (0.00-0.99); Hepatitis A Antibody IgM 0.71 Index (0-0.79); Hepatitis B Core Antibody Nonreactive (Nonreactive); Hepatitis B Surface Antigen Negative (Negative); ~HepC Num1 0.12 S/CO (0.00-0.79); ~Hepatitis A Antibody IgM Nonreactive (Nonreactive); ~Hepatitis B Surface Antibody NONREACTIVE (Nonreactive); ~Hepatitis C Antibody Nonreactive (Nonreactive)
== END 2023-04-14 13:33 | disposition home or self-care (01) ==
LOC: HO.HMGCX 13:32
PROVIDERS: PCP Nurse Practitioner Family; Visit Provider Nurse Practitioner Family
DX: R06.02 Shortness of breath (principal); R74.8 Abnormal levels of other serum enzymes; F17.200 Nicotine dependence, unspecified, uncomplicated; Z11.59 Encounter for screening for other viral diseases; Z72.89 Other problems related to lifestyle
CPT/HCPCS: 36415; 71046; 86704; 86706; 86709; 86803; 87340

== ENCOUNTER 2023-04-20 08:30 | Outpatient (REF) | payer MEDICARE, MEDICAID, SELFPAY ==
--- NOTE | ~2023-04-20 | US_ITS ---
EXAMINATION: US ABDOMEN COMPLETE CLINICAL INFORMATION: Abnormal levels of other serum enzymes. Alanine aminotransferase (ALT) (serum glutamic-pyruvic transaminase) (SGPT) level abnormal. COMPARISON: CT abdomen and pelvis with contrast dated 09/30/2015. TECHNIQUE: Real-time imaging of the abdominal viscera. FINDINGS: PANCREAS: Normal. ABDOMINAL AORTA: Atherosclerotic disease. Aneurysmal dilatation measuring up to 3.1 cm. INFERIOR VENA CAVA: Visualized portions are normal. LIVER: Increased parenchymal echogenicity. The liver is normal in size. The liver contour is normal. Simple cysts in the left hepatic lobe measuring up to 1.6 cm for which no imaging follow-up is recommended. There is no intrahepatic biliary duct dilatation seen. GALLBLADDER: Normal. The gallbladder is physiologically distended without evidence of stones, sludge, polyps, wall thickening or pericholecystic fluid. COMMON BILE DUCT: Upper limits of normal measuring 0.7 cm in diameter. RIGHT KIDNEY: Normal. No hydronephrosis. No renal calculi or focal parenchymal lesions. The kidney measures 12 cm in maximum dimension. LEFT KIDNEY: Simple cyst in the midpole measuring 2 cm, for which no imaging follow-up is recommended. No hydronephrosis or renal calculi. The kidney measures 11.3 cm in maximum dimension. SPLEEN: Normal. The spleen measures 10.0 cm in maximum dimension. FREE FLUID: None. US/US abdomen complete IMPRESSION: 1. Increased parenchymal echogenicity of the liver is nonspecific, but could be seen in the setting of hepatic steatosis 2. Aneurysmal dilatation of the abdominal aorta measuring up to 3.1 cm, this is increased from 2.[address] from 09/30/2015. No more recent prior studies are available for comparison. Based on published guidelines in J Am Samantha Radiol 2013; 10(10):789-794 and J Vasc Surg. 2018; 67:2-77, the recommendation for an abdominal aortic aneurysm with diameter 3.0-3.4 cm is follow-up every 3 years.
== END 2023-04-20 08:31 | disposition home or self-care (01) ==
LOC: HO.HMGCX 08:30
PROVIDERS: PCP Nurse Practitioner Family; Visit Provider Nurse Practitioner Family
DX: R74.8 Abnormal levels of other serum enzymes (principal)
CPT/HCPCS: 76700

== ENCOUNTER 2023-05-13 15:14 | Outpatient (REF) | payer MEDICARE, MEDICAID, SELFPAY ==
--- NOTE | ~2023-05-13 | CT_ITS ---
EXAMINATION: LUNG CANCER SCREENING CT CHEST WITHOUT CONTRAST CLINICAL INFORMATION: Current smoker with 43 pack year history. COMPARISON: None TECHNIQUE: Multidetector volumetric CT imaging of the chest was obtained noncontrast using low dose screening CT technique. Axial thin section 0.625 mm reformations in soft tissue and lung windows were obtained. Sagittal and coronal reformations were obtained. Axial MIP images were also created and reviewed. This CT examination was performed using dose optimization techniques as appropriate, variously including the following: *Automated exposure control *Adjustment of mA and/or kV according to patient size (this includes techniques or standardized protocols for targeted exams where dose is matched to indication/reason for exam; i.e. extremities or head) *Use of iterative reconstruction technique TOTAL EXAM DLP: 66.78 mGy-cm FINDINGS: PULMONARY NODULES (see sandoval images): No suspicious pulmonary nodules. There are a few scattered pulmonary nodules measuring 3 mm or less in the upper lungs. LUNGS / PLEURA: Mild emphysema. Diffuse mild bronchial wall thickening without bronchiectasis. No pleural effusion or pneumothorax. MEDIASTINUM / PAWAN: Heart normal in size without pericardial effusion. Great vessels normal caliber. No lymphadenopathy. Coronary calcifications present. Imaged thyroid gland unremarkable. CHEST WALL / AXILLA: Unremarkable. UPPER ABDOMEN: There are couple benign cysts in the liver. OSSEOUS STRUCTURES: No acute or suspicious osseous abnormalities. CT/CT lung screening IMPRESSION: * No evidence of pulmonary malignancy. * There are no pulmonary nodules that meet criteria for short interval follow-up at this time. * Mild emphysema. ASSESSMENT: Lung RADS category: 2. Benign appearance or behavior. Nodules with a very low likelihood of becoming a clinically active cancer due to size or lack of growth. Continue annual screening with low-dose CT in 12 months. Probability of malignancy less than 1%. RECOMMENDATION: Follow up low dose CT chest in 1 year.
== END 2023-05-13 15:15 | disposition home or self-care (01) ==
LOC: HO.CT 15:14
PROVIDERS: PCP Nurse Practitioner Family; Visit Provider Physician Assistant Medical
DX: Z12.2 Encounter for screening for malignant neoplasm of respiratory organs (principal); F17.210 Nicotine dependence, cigarettes, uncomplicated
CPT/HCPCS: 71271; G0296

== ENCOUNTER 2023-05-20 10:58 | Outpatient (AMB) | payer MEDICARE, MEDICAID, SELFPAY ==
--- NOTE | 2023-05-20 11:06 | MHC.OFFVIS ---
Intake Vital Signs 05/20/23 11:07 BP 106/68 Blood Pressure Location Lt radial Position Sitting Pulse 72 Pulse Source Pulse Oximeter Pulse Oximetry (%) 97 Oxygen Delivery Method Room Air Intake Visit Reasons: MAT Visit Intake Note: the patient presents for a mat visit Ediphone Operator Required: No Allergies effexor Allergy (Severe, Verified 05/20/23 11:08) shortness of breath escitalopram Allergy (Mild, Verified 05/20/23 11:08) rash tramadol [TRAMADOL] Adverse Reaction (Intermediate, Verified 05/20/23 11:08) NAUSEA paroxetine [From PAXIL] Adverse Reaction (Mild, Verified 05/20/23 11:08) AGITATION SEASONAL Allergy (Mild, Uncoded 05/20/23 11:08) rhinitis Do you need a note to return to daycare/school/sports/work: No HPI MAT Visit HPI Details Patient presents for follow up Tolerating suboxone dose and denies any issues with recovery Still caring for mother, not sleeping. Appearing tired during visit. Discussed sleep hygiene, patient reporting racing thoughts, increasing anxiety as contributing to poor sleep. Reports in the past trazodone has been helpful--will trial again. [facility] Medical History (Updated 05/13/23 @ 15:01 by Tawana Ray PA-C) Arthropathy of right knee History of supraventricular tachycardia HTN (hypertension) Hyperlipemia Hyperplastic colon polyp (~2018) Hypothyroid Nicotine dependence, cigarettes, uncomplicated Right elbow tendonitis Spinal cord stimulator dysfunction Surgical History (Updated 05/05/23 @ 14:54 by Tawana Ray PA-C) History of Achilles tendon repair History of back surgery History of cardiac cath History of cardiac radiofrequency ablation History of colonoscopy History of left knee surgery History of revision of total replacement of right knee joint History of right salpingo-oophorectomy History of total right knee replacement History of tubal ligation S/P insertion of spinal cord stimulator Family History Father No problems noted. Mother Diabetes Mental health disorder Sister Mental health disorder Social History (Updated 05/23/23 @ 11:57 by Meliza Krause CNP) Housing: House Patient Tobacco Use Status: Current everyday Tobacco user Cigarettes Per Day: 4 Years Smoked: onset 13yo, 1-1.5ppd x 45yrs, now 1/4ppd - 50pyh e-Cigarette/Vaping Use: Never Used Second Hand Smoke Exposure: No service: No Current occupational status: unemployed Current occupational exposures/hazards: No Cognitive needs: No Hearing needs: No Vision needs: No Review of Systems Const Reports as per HPI Physical Exam Vital Signs: Last Vital Signs Pulse 72 05/20/23 11:07 BP 106/68 05/20/23 11:07 Pulse Ox 97 05/20/23 11:07 Oxygen Delivery Method Room Air 05/20/23 11:07 Psych Appearance: well kempt Affect: normal affect Attitude: cooperative Thought process: Normal thought process present Thought content: Normal thought content present Insight: Good insight present (Psych) Judgement: Good judgement present (Psych) Assessment & Plan Assessment & Plan (1) Opioid use disorder, moderate, in sustained remission: Code(s): F11.21 - Opioid dependence, in remission Plan: continue suboxone at current dose follow up 8 weeks trazodone 50mg QHS PRN Medications: New trazodone 50 mg PO BEDTIME PRN 30 tabs 1RF sleep Refilled buprenorphine-naloxone 8-2 mg (Suboxone) 1 film sublingual TID 90 ea 1RF Coding Level of Care Code Est Pt Level 4 (34638) Diagnoses Opioid use disorder, moderate, in sustained remission F11.21
[2023-05-20 11:07] VITALS: BP 106/68; PULSE 72; O2SAT 97
== END 2023-05-20 11:44 | disposition home or self-care (01) ==
LOC: HO.HCC 10:58
PROVIDERS: PCP Nurse Practitioner Family; Visit Provider Nurse Practitioner Psychiatric/Mental Health
DX: F11.21 Opioid dependence, in remission (principal)
CPT/HCPCS: 99214

== ENCOUNTER → 2023-05-20 10:58 | Outpatient (BNVA) | payer MEDICARE, MEDICAID, SELFPAY | PROVIDERS: PCP Nurse Practitioner Family; Visit Provider Nurse Practitioner Psychiatric/Mental Health | DX: F11.21 Opioid dependence, in remission (principal); Z96.82 Presence of neurostimulator; Z51.81 Encounter for therapeutic drug level monitoring; Z79.899 Other long term (current) drug therapy | CPT/HCPCS: 99212 ==

== ENCOUNTER 2023-06-23 08:25 | Outpatient (REF) | payer MEDICARE, MEDICAID, SELFPAY ==
--- NOTE | 2023-06-23 09:05 | PFT_ITS ---
FLOWS: 1. FEV1 88% of predicted at 2.59 L. 2. FVC 96% of predicted at 3.64 L. 3. FEV1 to FVC ratio of 0.71. 4. No bronchodilator response. LUNG VOLUMES: 1. Total lung capacity 95% of predicted at 5.26 L. 2. Residual volume 88% of predicted at 1.83 L. 3. Slow vital capacity 100% of predicted at 3.43 L. 4. Expiratory reserve volume 28% of predicted at 0.30 L. 5. Diffusion capacity is mildly decreased. IMPRESSION: No obstructive or restrictive ventilatory defect. No bronchodilator response. Flow volume loop suggests fixed extrathoracic restriction. Decreased diffusion capacity suggests emphysema. Clinical correlation is advised. MD MEJIA Jones/MODL / [id number]
== END 2023-06-23 08:26 | disposition home or self-care (01) ==
LOC: HO.RESP 08:25
PROVIDERS: PCP Nurse Practitioner Family; Visit Provider Nurse Practitioner Family
DX: R06.02 Shortness of breath (principal); F17.200 Nicotine dependence, unspecified, uncomplicated
CPT/HCPCS: 94010; 94727; 94729

== ENCOUNTER → 2023-06-23 09:05 | Outpatient (BNV) | payer MEDICARE, MEDICAID, SELFPAY | PROVIDERS: PCP Nurse Practitioner Family; Visit Provider Internal Medicine Pulmonary Disease | DX: R06.09 Other forms of dyspnea (principal) | CPT/HCPCS: 94060; 94727; 94729 ==

== ENCOUNTER 2023-07-04 10:05 | Outpatient (AMB) | payer MEDICARE, MEDICAID, SELFPAY ==
[2023-07-04 10:18] VITALS: BMI 33.2
--- NOTE | 2023-07-04 10:18 | MHC.OFFVIS ---
Intake Vital Signs 07/04/23 10:18 Height 5 ft 7 in Weight 212 lb BMI 33.2 Intake Visit Reasons: OV-Left knee injection-last knee injection-07/12/22 Intake Note: Aaliyah is a 58 year old female who presents today for a follow up of her left knee, last injection was done 07/12/22. Patient reports that this injection was not helpful at all. She was unable to come to address her knee since then as she has surgery on heripsilateral achilles tendon repair ( hagelund's).. She reports that he knee pain has increased significantly. Allergies effexor Allergy (Severe, Verified 05/20/23 11:08) shortness of breath escitalopram Allergy (Mild, Verified 05/20/23 11:08) rash tramadol [TRAMADOL] Adverse Reaction (Intermediate, Verified 05/20/23 11:08) NAUSEA paroxetine [From PAXIL] Adverse Reaction (Mild, Verified 05/20/23 11:08) AGITATION SEASONAL Allergy (Mild, Uncoded 05/20/23 11:08) rhinitis HPI OV-Left knee injection-last knee injection-07/12/22 HPI Details Aaliyah is a 58 year old woman who presents to discuss her left knee OA. She was last seen, and injected, on 07/12/22, which says gave her no relief. She complains of worsening pain in her knee with daily activity, worse with walking or using stairs. She says squatting or twisting activities cause her pain, and she is unable to play with her grandchildren. She found no relief from steroid injections in the past. She says her pain is constant and limits her activities. She says she would have been seen sooner but she was recovering from an achilles tendon repair surgery, which she says just caused her problems and she continues to have difficulty. She has a hx of right TKA, which she says went well. She currently takes Suboxone TID. [facility] Medical History Arthropathy of right knee Emphysema/COPD History of supraventricular tachycardia HTN (hypertension) Hyperlipemia Hyperplastic colon polyp (~2018) Hypothyroid Nicotine dependence, cigarettes, uncomplicated Right elbow tendonitis Spinal cord stimulator dysfunction Surgical History History of Achilles tendon repair History of back surgery History of cardiac cath History of cardiac radiofrequency ablation History of colonoscopy History of left knee surgery History of revision of total replacement of right knee joint History of right salpingo-oophorectomy History of total right knee replacement History of tubal ligation S/P insertion of spinal cord stimulator Family History Father No problems noted. Mother Diabetes Mental health disorder Sister Mental health disorder Social History Housing: House Patient Tobacco Use Status: Current everyday Tobacco user Cigarettes Per Day: 4 Years Smoked: onset 13yo, 1-1.5ppd x 45yrs, now 1/4ppd - 50pyh e-Cigarette/Vaping Use: Never Used Second Hand Smoke Exposure: No service: No Current occupational status: unemployed Current occupational exposures/hazards: No Cognitive needs: No Hearing needs: No Vision needs: No Review of Systems Const All systems reviewed & are unremarkable except as noted in HPI and below Physical Exam Vital Signs: BMI result Body Mass Index 33.2 Const General: no acute distress, alert and awake Orientation/consciousness: patient oriented x3 HEENT Head: Yes normocephalic and Yes atraumatic Eyes EOM: EOMs intact bilaterally Resp Effort & Inspection: normal respiratory effort and able to speak in complete sentences Cardio Jugular venous distension: no JVD Skin General skin exam: turgor normal Rashes: no rashes Neuro General: patient oriented x3 Extrem Other: Left Knee: Sharp TTP medial compartment Varus thrust with gait Psych Appearance: grossly normal Affect: normal affect Attitude: cooperative Results Reviewed Results Reviewed: I personally reviewed relevant radiographs. Total right knee prosthesis in alignment. The right knee joint is slightly higher in position compared to the left knee joint space. ? Left knee: Severe degenerative changes in medial and patellofemoral compartments with periarticular spurring. No loose bodies, acute fracture or dislocation seen. Mild suprapatellar joint effusion of the left knee is noted. Mild suprapatellar spurring. Assessment & Plan Assessment & Plan (1) Localized osteoarthritis of left knee: Code(s): M17.12 - Unilateral primary osteoarthritis, left knee Plan: This is a 58 year old woman with severe left knee OA, primarily of the medial compartment. She has pain with daily activity, worse with ambulation or using stairs, and found no relief from previous steroid injections. She says her pain is constant, she is limited in her ADLs, and feels her QOL is diminished. I discussed her diagnosis and treatment options. I recommend a left TKA. I discussed the risks, benefits, and alternatives including, but not limited to, the risk of pain, infection, stiffness, need for further surgery as well as potential medical complications such as blood clots, pulmonary embolism and cardiac complications. I discussed the recovery timeline and process as well as the importance of PT. Aaliyah is a good candidate for this surgery, and she wishes to proceed with this decision. She will speak with Darlyn to schedule this procedure. She is on Suboxone TID. (2) Opioid use disorder, moderate, in sustained remission: Code(s): F11.21 - Opioid dependence, in remission (3) Aortic stenosis: Code(s): I35.0 - Nonrheumatic aortic (valve) stenosis Plan Scribed for Lizandro Schwartz MD by Sachin Lopez, medical management trainer, on 07/04/23 at 10:55 AM, EST. Coding Level of Care Code Est Pt Level 4 (76764) Diagnoses Localized osteoarthritis of left knee M17.12 Opioid use disorder, moderate, in sustained remission F11.21 Aortic stenosis I35.0
== END 2023-07-04 11:24 | disposition home or self-care (01) ==
PROVIDERS: PCP Nurse Practitioner Family; Visit Provider Orthopaedic Surgery
DX: M17.12 Unilateral primary osteoarthritis, left knee (principal)
CPT/HCPCS: 99214

== ENCOUNTER → 2023-07-04 10:05 | Outpatient (BNVA) | payer MEDICARE, MEDICAID, SELFPAY | PROVIDERS: PCP Nurse Practitioner Family; Visit Provider Orthopaedic Surgery | DX: M17.12 Unilateral primary osteoarthritis, left knee (principal); I35.0 Nonrheumatic aortic (valve) stenosis; F11.21 Opioid dependence, in remission; Z96.651 Presence of right artificial knee joint; Z47.1 Aftercare following joint replacement surgery; Z96.82 Presence of neurostimulator; Z98.890 Other specified postprocedural states | CPT/HCPCS: 99212 ==

== ENCOUNTER 2023-07-05 08:58 | Outpatient (REF) | payer MEDICARE, MEDICAID, SELFPAY ==
[2023-07-07 20:34] LABS: TS Negative Control Passed; TS Panel A 0; TS Panel B 0; TS Positive Control Passed; TSpotTB Negative (Negative)
== END 2023-07-05 08:59 | disposition home or self-care (01) ==
LOC: HO.HMGCLDS 08:58
PROVIDERS: PCP Nurse Practitioner Family; Visit Provider Nurse Practitioner Family
DX: Z11.1 Encounter for screening for respiratory tuberculosis (principal)
CPT/HCPCS: 36415; 86481

== ENCOUNTER 2023-07-22 10:06 | Outpatient (AMB) | payer MEDICARE, MEDICAID, SELFPAY ==
--- NOTE | 2023-07-22 10:11 | A.OFFVIS_ITS ---
Intake Vital Signs 07/22/23 10:17 BP 128/74 Blood Pressure Location Lt radial Position Sitting Pulse 79 Pulse Source Pulse Oximeter Pulse Oximetry (%) 96 Oxygen Delivery Method Room Air Intake Visit Reasons: MAT Visit Intake Note: the patient presents for a mat visit Medical Lab Director Required: No Allergies effexor Allergy (Severe, Verified 07/22/23 10:11) shortness of breath escitalopram Allergy (Mild, Verified 07/22/23 10:11) rash tramadol [TRAMADOL] Adverse Reaction (Intermediate, Verified 07/22/23 10:11) NAUSEA paroxetine [From PAXIL] Adverse Reaction (Mild, Verified 07/22/23 10:11) AGITATION SEASONAL Allergy (Mild, Uncoded 07/22/23 10:11) rhinitis Do you need a note to return to daycare/school/sports/work: No HPI MAT Visit HPI Details Patient presents for follow up Currently prescibd suboxone 8mg TID Still caring FT for her mother September 27 TKR --encouraged patient to have provider call if any concerns regarding suboxone and pain management Processed current stressors--feels strong in her recovery, not concerned about recurrence of alcohol or opioid use [facility] Medical History Arthropathy of right knee Emphysema/COPD History of supraventricular tachycardia HTN (hypertension) Hyperlipemia Hyperplastic colon polyp (~2017) Hypothyroid Nicotine dependence, cigarettes, uncomplicated Right elbow tendonitis Spinal cord stimulator dysfunction Surgical History History of Achilles tendon repair History of back surgery History of cardiac cath History of cardiac radiofrequency ablation History of colonoscopy History of left knee surgery History of revision of total replacement of right knee joint History of right salpingo-oophorectomy History of total right knee replacement History of tubal ligation S/P insertion of spinal cord stimulator Family History Father No problems noted. Mother Diabetes Mental health disorder Sister Mental health disorder Social History Housing: House Patient Tobacco Use Status: Current everyday Tobacco user Cigarettes Per Day: 4 Years Smoked: onset 13yo, 1-1.5ppd x 45yrs, now 1/4ppd - 50pyh e-Cigarette/Vaping Use: Never Used Second Hand Smoke Exposure: No service: No Current occupational status: unemployed Current occupational exposures/hazards: No Cognitive needs: No Hearing needs: No Vision needs: No Review of Systems Const Reports as per HPI and Reports difficulty sleeping Physical Exam Vital Signs: Last Vital Signs Pulse 79 07/22/23 10:17 BP 128/74 07/22/23 10:17 Pulse Ox 96 07/22/23 10:17 Oxygen Delivery Method Room Air 07/22/23 10:17 Psych Appearance: well kempt Affect: normal affect Attitude: cooperative Thought process: Normal thought process present Thought content: Normal thought content present Insight: Good insight present (Psych) Judgement: Good judgement present (Psych) Results AMB 14 Panel Urine Drug Screen Urine Marijuana (THC) Negative Last Edit by Nathalia Altman CMA on 07/22/23 10:19 Urine Cocaine Negative Last Edit by Nathalia Altman CMA on 07/22/23 10:19 Urine Morphine Negative Last Edit by Nathalia Altman CMA on 07/22/23 10:19 Urine Methamphetamine Negative Last Edit by Nathalia Altman CMA on 07/22/23 10:19 Urine Amphetamine Negative Last Edit by Nathalia Altman CMA on 07/22/23 10:1 9 Urine Benzodiazepine Negative Last Edit by Nathalia Altman CMA on 07/22/23 10:19 Urine Barbiturates Negative Last Edit by Nathalia Altman CMA on 07/22/23 10: 19 Urine Methadone Negative Last Edit by Nathalia Altman CMA on 07/22/23 10:19 Urine Buprenorphine Positive Last Edit by Nathalia Altman CMA on 07/22/23 10 :19 Urine Tricyclic Antidepressant Negative Last Edit by Nathalia Altman CMA on 07/22/23 10:19 Urine MDMA Negative Last Edit by Nathalia Altman CMA on 07/22/23 10:19 Urine Oxycodone Negative Last Edit by Nathalia Altman CMA on 07/22/23 10:19 Urine Phencyclidine Negative Last Edit by Nathalia Altman CMA on 07/22/23 10 :19 Urine Propoxyphene Negative Last Edit by Nathalia Altman CMA on 07/22/23 10: 19 Results Reviewed Results Reviewed: Laboratory Last Values POC Urine Buprenorphine Positive 07/22/23 10:12 POC Urine Morphine Negative 07/22/23 10:12 POC Urine Oxycodone Negative 07/22/23 10:12 POC Urine Methadone Negative 07/22/23 10:12 POC Urine Propoxyphene Negative 07/22/23 10:12 POC Urine Barbiturates Negative 07/22/23 10:12 POC U Tricyclic Antidpr Negative 07/22/23 10:12 POC Urine PCP Negative 07/22/23 10:12 POC Ur Amphetamines Negative 07/22/23 10:12 POC Ur Methamphetamine Negative 07/22/23 10:12 POC Urine MDMA Negative 07/22/23 10:12 POC Ur Benzodiazepine Negative 07/22/23 10:12 POC Urine Cocaine Negative 07/22/23 10:12 POC Ur Marijuana (THC) Negative 07/22/23 10:12 Assessment & Plan Assessment & Plan (1) Opioid use disorder, moderate, in sustained remission: Code(s): F11.21 - Opioid dependence, in remission Plan: * continue suboxone at current dose * follow up 8 weeks Orders: Orders AMB 14 Panel Urine Drug Screen 07/22/23 Z51.81 - Encounter for therapeutic drug level monitoring Medications: Refilled buprenorphine-naloxone 8-2 mg (Suboxone) 1 film sublingual TID 90 ea 1RF Coding Level of Care Code Est Pt Level 3 (62821) Diagnoses Opioid use disorder, moderate, in sustained remission F11.21
[2023-07-22 10:17] VITALS: BP 128/74; PULSE 79; O2SAT 96
== END 2023-07-22 11:01 | disposition home or self-care (01) ==
LOC: HO.HCC 10:06
PROVIDERS: PCP Nurse Practitioner Family; Visit Provider Nurse Practitioner Psychiatric/Mental Health
DX: F11.21 Opioid dependence, in remission (principal)
CPT/HCPCS: 99213

== ENCOUNTER → 2023-07-22 10:06 | Outpatient (BNVA) | payer MEDICARE, MEDICAID, SELFPAY | PROVIDERS: PCP Nurse Practitioner Family; Visit Provider Nurse Practitioner Psychiatric/Mental Health | DX: F11.20 Opioid dependence, uncomplicated (principal) | CPT/HCPCS: 80305; 99212 ==

== ENCOUNTER 2023-08-23 13:33 | Outpatient (AMB) | payer MEDICARE, MEDICAID, SELFPAY ==
[2023-08-23 13:38] VITALS: BP 120/68; PULSE 79; O2SAT 98; BMI 34.0
--- NOTE | 2023-08-23 13:38 | MHC.PC.OV ---
Vital Signs 08/23/23 13:38 Height 5 ft 7 in Weight 217 lb 4 oz BMI 34.0 BP 120/68 Blood Pressure Location Rt brachial Position Sitting Pulse 79 Pulse Source Pulse Oximeter Pulse Oximetry (%) 98 Oxygen Delivery Method Room Air Intake Visit Reasons: Pre-op visit (general surgery) Intake Note: pt is here pre-op for left knee replacement Allergies effexor Allergy (Severe, Verified 08/23/23 13:41) shortness of breath escitalopram Allergy (Mild, Verified 08/23/23 13:41) rash tramadol [TRAMADOL] Adverse Reaction (Intermediate, Verified 08/23/23 13:41) NAUSEA paroxetine [From PAXIL] Adverse Reaction (Mild, Verified 08/23/23 13:41) AGITATION SEASONAL Allergy (Mild, Uncoded 08/23/23 13:41) rhinitis Tobacco use date assessed: 08/23/23 Dental Screening Dental Screen Date: 08/23/23 Did you have a dental visit in the last 12 months?: Yes Did you have a dental problem in the last 6 months where you did not have access to dental care?: No Was dental information given to patient?: Patient has dentist HPI Pre-op visit (general surgery) HPI Details Pt is here for a pre-op evaluation. She is scheduled to undergo a left TKA on 09/[address] Schwartz. Will order labs and EKG to be completed within 30 days of her surgery. Will await EKG and labs, otherwise clear for surgery from my standpoint. [facility] Medical History Emphysema/COPD Hyperplastic colon polyp (~2018) Hyperlipemia History of supraventricular tachycardia Nicotine dependence, cigarettes, uncomplicated HTN (hypertension) Hypothyroid Arthropathy of right knee Spinal cord stimulator dysfunction Right elbow tendonitis Surgical History History of Achilles tendon repair History of cardiac cath History of cardiac radiofrequency ablation S/P insertion of spinal cord stimulator History of colonoscopy History of right salpingo-oophorectomy History of tubal ligation History of left knee surgery History of total right knee replacement History of revision of total replacement of right knee joint History of back surgery Family History (Reviewed 08/23/23 @ 14:43 by M[facility]EN[facility] Father No problems noted. Mother Diabetes Mental health disorder Sister Mental health disorder Social History Housing: House Patient Tobacco Use Status: Current everyday Tobacco user Cigarettes Per Day: 4 Years Smoked: onset 13yo, 1-1.5ppd x 45yrs, now 1/4ppd - 50pyh e-Cigarette/Vaping Use: Never Used Second Hand Smoke Exposure: No service: No Current occupational status: unemployed Current occupational exposures/hazards: No Cognitive needs: No Hearing needs: No Vision needs: No Questionnaire Thrive Questionnaire Date Thrive assessed: 02/17/22 JOAN-7 AMB Questionnaire JOAN-7 Date JOAN - 7 assessed: 02/17/22 Source: Developed by Drs. Miles Anguiano, Jennifer Hill, Xander Rodriguez and colleagues, with an educational jacqueline from [employer]. Review of Systems Const Denies chills and Denies fever(s) Eyes Denies blurry vision ENT Denies vertigo, Denies dizziness and Denies sore throat Card Denies chest pain at rest, Denies chest pain with activity, Denies diaphoresis, Denies dyspnea and Denies dyspnea on exertion Resp Denies cough, Denies dyspnea, Denies dyspnea on exertion and Denies wheezing GI Denies abdominal pain, Denies melena, Denies hematochezia, Denies constipation, Denies diarrhea and Denies loose stools Denies hematuria Musc Denies numbness and Denies tingling Skin/Breast Denies lesions Neuro Denies vertigo, Denies dizziness, Denies numbness and Denies tingling Psych Denies anxiety, Denies depression, Denies homicidal ideation, Denies suicidal ideation and Denies other (substance abuse) Aller/Immun Denies wheezing Physical exam (Primary Care) Vital Signs: Last Vital Signs Pulse 79 08/23/23 13:38 BP 120/68 08/23/23 13:38 Pulse Ox 98 08/23/23 13:38 Oxygen Delivery Method Room Air 08/23/23 13:38 BMI result Body Mass Index 34.0 Tobacco/Smoking Status: Tobacco use Status Tobacco use date assessed 08/23/23 08/23/23 13:44 Patient Tobacco Use Status Current everyday Tobacco 08/23/23 13:41 e-Cigarette/Vaping Use Never Used 08/23/23 13:41 Thrive Assessment: Date of Thrive Assessment Date Thrive assessed 02/17/22 08/23/23 13:41 Const General: cooperative Nutritional Appearance: obese Orientation/consciousness: patient oriented x3 Neck Neck: Yes no lymphadenopathy Resp Effort & Inspection: normal respiratory effort Auscultation: clear to auscultation bilaterally Cardio Rate: regular rate Rhythm: regular rhythm Heart sounds: S1 normal heart sound present, S2 normal heart sound present and no murmurs Neuro General: patient oriented x3 and moves all extremities Psych Appearance: grossly normal Mental Status: mental status grossly normal Speech and movement: Normal speech and movement present Affect: normal affect Attitude: cooperative Thought process: Normal thought process present Thought content: Normal thought content present Insight: Good insight present (Psych) Judgement: Good judgement present (Psych) Assessment and Plan Assessment & Plan (1) Pre-op evaluation: Code(s): Z01.818 - Encounter for other preprocedural examination Orders: Orders Comprehensive Met. Panel Today Z01.818 - Encounter for other preprocedural examination ECG 12 lead EKG Today Z01.818 - Encounter for other preprocedural examination Complete Blood Count Auto Diff Today Z01.818 - Encounter for other preprocedural examination Coding Level of Care Code Est Pt Prev Care 40-64y(62239) Diagnoses Pre-op evaluation Z01.818
== END 2023-08-23 14:56 | disposition home or self-care (01) ==
PROVIDERS: PCP Nurse Practitioner Family; Visit Provider Nurse Practitioner Family
DX: Z01.818 Encounter for other preprocedural examination (principal)
CPT/HCPCS: 99214

== ENCOUNTER 2023-08-30 11:38 | Outpatient (REF) | payer MEDICARE, MEDICAID, SELFPAY ==
--- NOTE | 2023-08-30 11:46 | ECG_ITS ---
Test Reason : PREPROC EXAM Blood Pressure : / mmHG Vent. Rate : 070 BPM Atrial Rate : 070 BPM P-R Int : 144 ms QRS Dur : 094 ms QT Int : 396 ms P-R-T Axes : 063 057 038 degrees QTc Int : 427 ms Normal sinus rhythm Possible Left atrial enlargement Nonspecific T wave abnormality Inferior leads Abnormal ECG When compared with ECG of 12-JAN-2020 12:55, T wave inversion no longer evident in Inferior leads Referred By: Trevor Ahn Electronically Signed By:BLACK CHAMBERLAIN MD
[2023-08-30 12:05] LABS: MANUAL DIFF FLAG NO
[2023-08-30 12:43] LABS: Basophils Absolute Auto 0.1 X10*3/uL (0.0-0.2); Basophils Percent Auto 0.8 % (0-2); Eosinophils Absolute Auto 0.1 X10*3/uL (0.0-0.4); Eosinophils Percent Auto 1.7 % (0-4); Hematocrit 37.6 % (37.0-47.0); Hemoglobin 12.2 g/dl (12.0-16.0); Imm Gran Abs Auto 0.01 X10*3/uL (0.00-0.03); Imm Gran Pct Auto 0.1 % (0.0-0.4); Lymphocytes Absolute Auto 2.5 X10*3/uL (1.2-4.9); Lymphocytes Percent Auto 31.7 % (20-40); Mean Corpuscular HGB Conc 32.4 g/dl (31.0-35.0); Mean Corpuscular Volume 89.5 fL (80.0-98.0); Monocytes Absolute Auto 0.5 X10*3/uL (0.1-1.2); Monocytes Percent Auto 6.8 % (2-11); Neutrophils Absolute Auto 4.6 x10*3/uL (2.0-8.3); Neutrophils Percent Auto 58.9 % (45-73); Platelet Count 265 X10*3/uL (160-400); Red Cell Distribution Width 12.7 % (11.0-16.0); White Blood Count 7.8 X10*3/uL (4.8-10.8)
[2023-08-30 13:15] LABS: Alanine Aminotransferase 24 U/L (0-31); Albumin Level 4.2 g/dL (3.5-5.0); Alkaline Phosphatase 104 U/L (39-117); Anion Gap 14 (12-20); Aspartate Amino Transferase 21 U/L (5-31); Bilirubin Total 0.3 mg/dL (0.0-1.0); Blood Urea Nitrogen 11 mg/dL (9-16); Calcium 9.5 mg/dL (8.4-10.2); Carbon Dioxide 29 mmol/L (22-29); Chloride 100 mmol/L (96-108); Estimated Glomerular Filt Rate > 60; Glucose Random 83 mg/dL (60-115); Potassium 3.7 mmol/L (3.3-5.1); Sodium 139 mmol/L (135-145); Total Protein 7.7 g/dL (6.5-8.0)
[2023-08-30 14:46] LABS: Appearance Urine Clear; Color Urine Yellow; Glucose Urine UA Negative (Negative); Leukocyte Esterase Urine Negative (Negative); Nitrite Urine Negative (Negative); PH 7.5 (5.0-9.0); Specific Gravity - Urine 1.015 (1.005-1.025); Urine Blood Negative (Negative); Urine Ketones Negative (Negative); Urine Protein Negative (Neg-Trace)
== END 2023-08-30 11:39 | disposition home or self-care (01) ==
LOC: HO.LAB 11:38
PROVIDERS: PCP Nurse Practitioner Family; Visit Provider Nurse Practitioner Family
DX: Z01.818 Encounter for other preprocedural examination (principal); I10 Essential (primary) hypertension; E03.9 Hypothyroidism, unspecified
CPT/HCPCS: 36415; 80053; 81003; 85025; 93005

== ENCOUNTER 2023-09-16 10:15 | Outpatient (AMB) | payer MEDICARE, MEDICAID, SELFPAY ==
--- NOTE | 2023-09-16 11:18 | A.OFFVIS_ITS ---
Intake Vital Signs 09/16/23 11:45 BP 138/76 Blood Pressure Location Rt brachial Position Sitting Pulse 88 Pulse Source Pulse Oximeter Pulse Oximetry (%) 94 Oxygen Delivery Method Room Air Intake Visit Reasons: MAT Visit Allergies effexor Allergy (Severe, Verified 08/23/23 13:41) shortness of breath escitalopram Allergy (Mild, Verified 08/23/23 13:41) rash tramadol [TRAMADOL] Adverse Reaction (Intermediate, Verified 08/23/23 13:41) NAUSEA paroxetine [From PAXIL] Adverse Reaction (Mild, Verified 08/23/23 13:41) AGITATION SEASONAL Allergy (Mild, Uncoded 08/23/23 13:41) rhinitis HPI MAT Visit HPI Details Pt presents for OUD treatment and follow up. Just recently within the past few weeks found out her mother has cervical cancer. Pt became tearful discussing her mother's diagnosis. Processed emotions with pt. Is working with her siblings to figure out a treatment plan for her mother and that this has been a significant stressor for her, however she continues to do well with her recovery. Denies cravings, tolerating suboxone well. Has a TKR scheduled for 09/27, she is looking forward to her new knee Her sister is coming to visit around the time of pt's surgery to help out. Feels as though she has enough recovery support at this time, says her is planning on taking some time off soon to assist her. [facility] Medical History Emphysema/COPD Hyperplastic colon polyp (~2018) Hyperlipemia History of supraventricular tachycardia Nicotine dependence, cigarettes, uncomplicated HTN (hypertension) Hypothyroid Arthropathy of right knee Spinal cord stimulator dysfunction Right elbow tendonitis Surgical History History of Achilles tendon repair History of cardiac cath History of cardiac radiofrequency ablation S/P insertion of spinal cord stimulator History of colonoscopy History of right salpingo-oophorectomy History of tubal ligation History of left knee surgery History of total right knee replacement History of revision of total replacement of right knee joint History of back surgery Family History Father No problems noted. Mother Diabetes Mental health disorder Sister Mental health disorder Social History Housing: House Patient Tobacco Use Status: Current everyday Tobacco user Cigarettes Per Day: 4 Years Smoked: onset 13yo, 1-1.5ppd x 45yrs, now 1/4ppd - 50pyh e-Cigarette/Vaping Use: Never Used Second Hand Smoke Exposure: No service: No Current occupational status: unemployed Current occupational exposures/hazards: No Cognitive needs: No Hearing needs: No Vision needs: No Review of Systems Const Reports as per HPI Physical Exam Vital Signs: Last Vital Signs Pulse 88 09/16/23 11:45 BP 138/76 09/16/23 11:45 Pulse Ox 94 09/16/23 11:45 Oxygen Delivery Method Room Air 09/16/23 11:45 Const General: cooperative and no acute distress Resp Effort & Inspection: normal respiratory effort Skin General skin exam: no rashes or lesions noted Psych Appearance: grossly normal Mental Status: mental status grossly normal Speech and movement: Normal speech and movement present Affect: normal affect Attitude: cooperative Thought process: Normal thought process present Assessment & Plan Assessment & Plan (1) Opioid use disorder, moderate, in sustained remission: Code(s): F11.21 - Opioid dependence, in remission Plan: Continue suboxone at current dose Discussed recovery supports. Follow up 8 weeks. Medications: Refilled buprenorphine-naloxone 8-2 mg (Suboxone) 1 film sublingual TID 90 ea 1RF Coding Level of Care Code Est Pt Level 3 (30071) Diagnoses Opioid use disorder, moderate, in sustained remission F11.21
[2023-09-16 11:45] VITALS: BP 138/76; PULSE 88; O2SAT 94
== END 2023-09-16 11:11 | disposition home or self-care (01) ==
PROVIDERS: PCP Nurse Practitioner Family; Visit Provider Nurse Practitioner Family
DX: F11.21 Opioid dependence, in remission (principal)
CPT/HCPCS: 99213

== ENCOUNTER → 2023-09-16 10:15 | Outpatient (BNVA) | payer MEDICARE, MEDICAID, SELFPAY | PROVIDERS: PCP Nurse Practitioner Family; Visit Provider Nurse Practitioner Family | DX: Z51.81 Encounter for therapeutic drug level monitoring (principal); F11.21 Opioid dependence, in remission | CPT/HCPCS: 99212 ==

== ENCOUNTER 2023-09-22 09:55 | Outpatient (AMB) | payer MEDICARE, MEDICAID, SELFPAY ==
--- NOTE | 2023-09-22 10:08 | MHC.OFFVIS ---
Intake Intake Visit Reasons: Preop LT TKA 09/27/23 NE Intake Note: Aaliyah is a 58 year old female who presents today for a pre op appointment left TKA 09/27/23 NE. Allergies effexor Allergy (Severe, Verified 09/22/23 10:13) shortness of breath escitalopram Allergy (Mild, Verified 09/22/23 10:13) rash Seasonal Allergies Allergy (Mild, Verified 09/22/23 10:13) rhinitis, watery eyes tramadol [TRAMADOL] Adverse Reaction (Intermediate, Verified 09/22/23 10:13) NAUSEA paroxetine [From PAXIL] Adverse Reaction (Mild, Verified 09/22/23 10:13) AGITATION Medication List - Last Reconciled 09/22/23 by Kiera Hadley PA-C ascorbic acid (vitamin C) (Vitamin C) 250 mg PO DAILY atorvastatin 20 mg PO BEDTIME 90 days buprenorphine-naloxone 8-2 mg (Suboxone) 1 film sublingual TID chlorthalidone 25 mg PO DAILY compr.stocking,knee,long,x-lrg 20/30 fluoxetine 60 mg (3 x 20 mg) PO QAM levothyroxine 112 mcg PO DAILY multivit with min-folic acid 200 mcg (Multivitamin Gummies) tabs PO trazodone 50 mg PO BEDTIME PRN HPI HPI Comments History of Present Illness Details Ms Espinoza presents to the office today for preop visit. She is scheduled for left total knee arthroplasty with Dr. Schwartz. She continues to have ongoing pain and difficulty with ambulation in the left knee, which is affecting her quality of life; therefore, she has elected to move forward with surgery. [facility] Medical History (Updated 09/22/23 @ 10:15 by Kiera Hadley PA-C) Emphysema/COPD Hyperplastic colon polyp (~2018) Hyperlipemia History of supraventricular tachycardia Nicotine dependence, cigarettes, uncomplicated HTN (hypertension) Hypothyroid Arthropathy of right knee Spinal cord stimulator dysfunction Right elbow tendonitis Surgical History (Updated 09/20/23 @ 12:29 by Dominique Green RN) History of Achilles tendon repair History of cardiac cath History of cardiac radiofrequency ablation S/P insertion of spinal cord stimulator History of colonoscopy History of right salpingo-oophorectomy History of tubal ligation History of left knee surgery History of total right knee replacement History of revision of total replacement of right knee joint History of back surgery Family History Father No problems noted. Mother Diabetes Mental health disorder Sister Mental health disorder Social History Housing: House Are you a primary child care giver to a significant other at home: Yes (child care giver for mother, and daughter to assist post-op) Do you presently have visiting nurse or other home services: No Patient Tobacco Use Status: Current everyday Tobacco user Tobacco use type: Cigarette Cigarettes Per Day: 5 Years Smoked: 43 e-Cigarette/Vaping Use: Never Used Second Hand Smoke Exposure: No service: No Current occupational status: unemployed Current occupational exposures/hazards: No Cognitive needs: No Hearing needs: No Vision needs: No Review of Systems Const All systems reviewed & are unremarkable except as noted in HPI and below Physical Exam Const General: cooperative and no acute distress Orientation/consciousness: patient oriented x3 Neck Neck: Yes normal visual inspection and Yes no lymphadenopathy Resp Effort & Inspection: normal respiratory effort and able to speak in complete sentences Cardio Peripheral pulses: Peripheral pulses 2+ throughout GI Inspection: Yes normal to inspection Palpation (GI): Soft to palpation Skin General skin exam: no rashes or lesions noted Neuro General: patient oriented x3 Extrem Other: Left knee: Skin intact. No erythema, no joint effusion. No abrasions. ROM is 0-100 degrees. Calf supple, nontender. NVI. Assessment & Plan Assessment & Plan (1) Osteoarthritis of left knee: Code(s): M17.12 - Unilateral primary osteoarthritis, left knee Qualifiers: Osteoarthritis type: primary Qualified Code(s): M17.12 - Unilateral primary osteoarthritis, left knee Plan: I discussed in detail the procedure and what to expect pre and post operatively. We discussed the risks, benefits and alternatives to the surgery as well as the rehabilitation course. The risks; which include, but are not limited to infection, bleeding, nerve injury, ongoing pain, swelling, and stiffness, perioperative risk of injury to bones and soft tissues, and blood clots. I?ve answered all questions and with their understanding they have consented to move forward with Left total knee arthroplasty with Dr. Schwartz Patient is on Suboxone: buprenorphine-naloxone 8-2 mg (Suboxone) 1 film sublingual TID 90 ea 1RF I did reach out to Meliza Krause, we had a discussion about her post op pain managment. She will continue her Suboxone post op in addition to our routine post op TJA pain regimen. If the patient's pain is not well controlled post op, there is the option of holding the Suboxone and she will help to restart post op. Patient Instructions: Scribed for Kiera Hadley PA-C, by Jamel Barba medical psychotherapist, on 09/22/2023 at 9:45 AM CAL. Kiera Vitale PA-C, have personally reviewed and agree with the information entered by the scribe. Coding Level of Care Code Est Pt Level 3 (78702) Diagnoses Primary osteoarthritis of left knee M17.12 Osteoarthritis type: primary
== END 2023-09-22 10:25 | disposition home or self-care (01) ==
PROVIDERS: PCP Nurse Practitioner Family; Visit Provider Physician Assistant
DX: M17.12 Unilateral primary osteoarthritis, left knee (principal)
CPT/HCPCS: 99024

== ENCOUNTER → 2023-09-22 09:55 | Outpatient (BNVA) | payer MEDICARE, MEDICAID, SELFPAY | PROVIDERS: PCP Nurse Practitioner Family; Visit Provider Physician Assistant | DX: M17.12 Unilateral primary osteoarthritis, left knee (principal) | CPT/HCPCS: 99212 ==

== ENCOUNTER 2023-09-27 07:09 | Day surgery (SDC) | payer MEDICARE, MEDICAID, SELFPAY ==
[2023-09-20 12:06] VITALS: BP 123/68; PULSE 89; RESP 16; O2SAT 97; BMI 34.5
--- NOTE | 2023-09-20 12:43 | P.CONAN_ITS ---
Documented by User: Kristina Plascencia NP 09/26/23 09:07 HPI - Anesthesia Eval Consult details Narrative: 58yo F for Left Knee Replacement Total, 09/27/23 PCP cleared No recent illness No CP/SOB with > 4 mets Suboxone daily. Will wean to 12mg daily total for 3 days prior to surgery. Spinal cord stim in situ COPD. Stable, does not require inhalers. Continues to smoke. SVT. s/p ablation 2000. Rare and short recurrence. Follows [facility]. Last seen 03/2023 without issue or changes to tx plan. HTN. Controlled on chlorthalidone Hypothyroid. Last TSH 03/2023 WNL AAA. @3.1cm per 2022 ultrasound PMFSH Active Problems Active Problems: All Active Problems (Updated 06/28/23 @ 13:23 by MARY Novak-RICKI) Screening-pulmonary TB (Acute) Fatty liver (Acute) Abdominal aortic aneurysm (Acute) Elevated liver enzymes (Acute) SOB (shortness of breath) (Acute) Contusion of foot, right (Acute) Opioid use disorder, moderate, in sustained remission (Acute) Blurred vision, bilateral (Acute) Localized osteoarthritis of left knee (Acute) Aortic stenosis (Acute) Swelling of both lower extremities (Acute) Varicose veins of right lower extremity with inflammation (Acute) History of supraventricular tachycardia (Acute) HTN (hypertension) (Acute) Hyperlipemia (Acute) Hypothyroid (Acute) Nicotine dependence, cigarettes, uncomplicated (Acute) Hyperplastic colon polyp (Acute ~2018) Past Medical History Medical History (Updated 09/30/23 @ 00:03 by Shasta Mayes) Osteoarthritis of left knee Emphysema/COPD Hyperplastic colon polyp (~2018) Hyperlipemia History of supraventricular tachycardia Nicotine dependence, cigarettes, uncomplicated HTN (hypertension) Hypothyroid Arthropathy of right knee Spinal cord stimulator dysfunction Right elbow tendonitis Family History Family History Father No problems noted. Mother Diabetes Mental health disorder Sister Mental health disorder Family history of problems with anesthesia: No Surgical History Surgical History (Updated 10/03/23 @ 12:37 by SONA Novak) History of total left knee replacement History of Achilles tendon repair History of cardiac cath History of cardiac radiofrequency ablation S/P insertion of spinal cord stimulator History of colonoscopy History of right salpingo-oophorectomy History of tubal ligation History of left knee surgery History of total right knee replacement History of revision of total replacement of right knee joint History of back surgery History of Problems with Anesthesia: No Social History Household Members: Spouse and Family Household Members Other:: Mother Housing: Apartment Are you a primary career specialist to a significant other at home: Yes (career specialist for mother, and daughter to assist post-op) Do you presently have visiting nurse or other home services: No Patient Tobacco Use Status: Current everyday Tobacco user Tobacco use type: Cigarette Cigarettes Per Day: 6 Years Smoked: 43 e-Cigarette/Vaping Use: Currently Using Second Hand Smoke Exposure: No service: No Current occupational status: unemployed Current occupational exposures/hazards: No Cognitive needs: No Hearing needs: No Vision needs: No Meds Allergies Allergy/AdvReac Type Severity Reaction Status Date / Time effexor Allergy Severe shortness Verified 09/29/23 10:09 of breath escitalopram Allergy Mild rash Verified 09/29/23 10:09 Seasonal Allergies Allergy Mild rhinitis, Verified 09/29/23 10:09 watery eyes tramadol [TRAMADOL] AdvReac Intermediate NAUSEA Verified 09/29/23 10:09 paroxetine [From PAXIL] AdvReac Mild AGITATION Verified 09/29/23 10:09 Home Medications Medication Instructions Recorded Confirmed Last Taken Type ascorbic acid (vitamin C) 250 mg 250 mg PO DAILY 09/20/23 09/27/23 09/26/23 History tablet (Vitamin C) multivitamin with minerals-folic 1 tab PO DAILY 09/20/23 09/27/23 09/26/23 History acid 200 mcg chewable tablet (Multivitamin Gummies) Exam Exam Date and Time: September 20, 2023 1243 Height,Weight and Vital Signs: Height 5 ft 7 in Weight 99.79 kg Last Vital Signs Pulse 89 09/20/23 12:06 Resp 16 09/20/23 12:06 BP 123/68 09/20/23 12:06 Pulse Ox 97 09/20/23 12:06 O2 Del Method Room Air 09/20/23 12:06 Pertinent Lab Results Pertinent Lab Results: Laboratory Tests 08/30/23 12:01 WBC 7.8 Hgb 12.2 Hct 37.6 Plt Count 265 Sodium 139 Potassium 3.7 Chloride 100 Carbon Dioxide 29 BUN 11 Creatinine 0.66 Narrative Narrative: EKG 08/2023 Vent. Rate : 070 BPM Atrial Rate : 070 BPM P-R Int : 144 ms QRS Dur : 094 ms QT Int : 396 ms P-R-T Axes : 063 057 038 degrees QTc Int : 427 ms Normal sinus rhythm Possible Left atrial enlargement Nonspecific T wave abnormality Inferior leads Abnormal ECG When compared with ECG of 12-JAN-2020 12:55, T wave inversion no longer evident in Inferior leads ECHO 2020 Conclusions: - 1. Normal LV systolic function with regional wall motion abnormality of the basal inferior inferoseptal wall 2. Mildly dilated left atrium 3. Calcification noted at the base of aortic valve leaflets with mild aortic stenosis 4. Normal RV systolic pressure 5. No pericardial effusion Per 03/2023 cardiac visit note: Cardiac cath 03/2022 showed nml coronary arteries with only 30% stenosis in the mid subsection of the RCA Airway Mallampati Class: II TM Dist: >3cm Neck ROM: Full Denture: Upper and Lower Heart: RRR Lungs: AUREA coarse but clears with cough. Otherwise CTA Assessment and Plan Assessment Anesthesia Assessment: Anesthesia Plan Discussed, Smoking Cess. Discussed and PAT Visit Final Anesthetic Review Family History of Problems with Anesthesia: No History of Problems with Anesthesia: No Documented by User: Aubrey Patten MD 10/06/23 17:04 [facility] Past Medical History Medical History (Updated 09/30/23 @ 00:03 by Background Gerber) Osteoarthritis of left knee Emphysema/COPD Hyperplastic colon polyp (~2017) Hyperlipemia History of supraventricular tachycardia Nicotine dependence, cigarettes, uncomplicated HTN (hypertension) Hypothyroid Arthropathy of right knee Spinal cord stimulator dysfunction Right elbow tendonitis Family History Family History Father No problems noted. Mother Diabetes Mental health disorder Sister Mental health disorder Surgical History Surgical History ([facility]03[facility]23 [facility] 12[facility] History of total left knee replacement History of Achilles tendon repair History of cardiac cath History of cardiac radiofrequency ablation S/P insertion of spinal cord stimulator History of colonoscopy History of right salpingo-oophorectomy History of tubal ligation History of left knee surgery History of total right knee replacement History of revision of total replacement of right knee joint History of back surgery Social History Household Members: Spouse and Family Household Members Other:: Mother Housing: Apartment Are you a primary career specialist to a significant other at home: Yes (career specialist for mother, and daughter to assist post-op) Do you presently have visiting nurse or other home services: No Patient Tobacco Use Status: Current everyday Tobacco user Tobacco use type: Cigarette Cigarettes Per Day: 6 Years Smoked: 43 e-Cigarette/Vaping Use: Currently Using Second Hand Smoke Exposure: No service: No Current occupational status: unemployed Current occupational exposures/hazards: No Cognitive needs: No Hearing needs: No Vision needs: No Meds Allergies Allergy/AdvReac Type Severity Reaction Status Date / Time effexor Allergy Severe shortness Verified 09/29/23 10:09 of breath escitalopram Allergy Mild rash Verified 09/29/23 10:09 Seasonal Allergies Allergy Mild rhinitis, Verified 09/29/23 10:09 watery eyes tramadol [TRAMADOL] AdvReac Intermediate NAUSEA Verified 09/29/23 10:09 paroxetine [From PAXIL] AdvReac Mild AGITATION Verified 09/29/23 10:09 Home Medications Medication Instructions Recorded Confirmed Last Taken Type ascorbic acid (vitamin C) 250 mg 250 mg PO DAILY 09/20/23 09/27/23 09/26/23 History tablet (Vitamin C) multivitamin with minerals-folic 1 tab PO DAILY 09/20/23 09/27/23 09/26/23 History acid 200 mcg chewable tablet (Multivitamin Gummies) Assessment and Plan Assessment Anesthesia Assessment: Chart Reviewed Final Anesthetic Review NPO: Yes ASA Class: III Final Preanesthetic Review: Meds/Allgs Chart Reviewed, Consent Obtained/Reviewed and Anes Risks/Benef Reviewed Patient Risk: High Procedure Risk: Intermediate Anesthetic Plan Anesthetic Plan: Spinal, Regional Block and Agree w/ Assess. and Plan Disposition: Standard PACU
[2023-09-20 15:00] LABS: MRSA Nasal PCR NEGATIVE (Negative); SA Nasal PCR NEGATIVE (Negative)
[2023-09-27] VITALS (16 sets, daily range): BP systolic 98–167; BP diastolic 57–80; PULSE 62–95; RESP 13–19; TEMP 36–36.9; O2SAT 94–98; BMI 34.5
--- NOTE | ~2023-09-27 | XR_ITS ---
EXAMINATION: XR KNEE, LEFT CLINICAL INFORMATION: Left total knee replacement COMPARISON: None available. TECHNIQUE: Frontal and lateral portable views of the left knee. FINDINGS: There is a left total knee replacement with patellar resurfacing in anatomic alignment and position. Postsurgical soft tissue changes including air and skin rose are noted. XR/XR knee LT 2V IMPRESSION: Left total knee arthroplasty in anatomic alignment and position.
[2023-09-27 07:51] LABS: Hematocrit 39.2 % (37.0-47.0); Hemoglobin 12.5 g/dl (12.0-16.0)
[2023-09-27] MEDS: Lactated Ringers 1,000 ML 100 ML IVCONT ×2 (08:22→14:42)
--- NOTE | 2023-09-27 12:58 | PC.NURSE ---
bladder scanned 1245 for 140' ml's
--- NOTE | 2023-09-27 13:00 | PHA.MEDREC ---
Pharmacy Consult ? Medication Reconciliation Pharmacy has reviewed the medication reconciliation.
--- NOTE | 2023-09-27 14:21 | P.BOP_ITS ---
Brief Operative Note Date of Service: 09/27/23 Pre-op diagnosis: Left knee OA Post-op diagnosis: same Procedure: Left TKA Implants: [place] Triathlon posterior stabilized press fit 04/18/10ps/32a Surgeon: Lizandro Schwartz MD Was an Sewing Machine Bobbin Winder used for this Procedure?: No Estimated blood loss (mL): 100 Tourniquet time (min): 65 IV fluids (mL): 1,000 Pathology: other Condition: stable Disposition: PACU
[2023-09-27] MEDS: Buprenorphine/Naloxone 8/2 mg FILM 1 FILM SUBLINGUAL ×2 (14:41→20:24)
[2023-09-27] MEDS: FLUoxetine HCl 20 MG CAPSULE 60 MG PO (14:41)
[2023-09-27] MEDS: 0.9 % Sodium Chloride Flush 3 ML SYRINGE IVFLUSH (14:42)
--- NOTE | 2023-09-27 15:50 | HO.PM.IMCN ---
History of Present Illness Data of Consult Service Date: 09/27/23 Primary Care Provider: KIMBERLY Wallace HPI 58 year old women with history of hypertension hypothyroidism admitted by Orthopedic surgery and is status post left total knee arthroplasty. Surgery was unremarkable. Patient is hemodynamically stable. She has been able to eat and drink without any nausea or vomiting. He is currently resting in bed comfortably with very minimal Will pain at this time. Review of Systems Review of Systems: Denies any recent fever chills or decrease in appetite respiratory denies any shortness of breath coverage production cardiovascular Denied chest pain gastrointestinal denies any dysphagia abdominal pain nausea vomiting or diarrhea genitourinary denies any dysuria frequency or hematuria musculoskeletal minimal pain neuropsych denies any weakness or seizures all other systems reviewed are negative [facility] Medical History Emphysema/COPD Hyperplastic colon polyp (~2018) Hyperlipemia History of supraventricular tachycardia Nicotine dependence, cigarettes, uncomplicated HTN (hypertension) Hypothyroid Arthropathy of right knee Spinal cord stimulator dysfunction Right elbow tendonitis Family History Father No problems noted. Mother Diabetes Mental health disorder Sister Mental health disorder Surgical History History of Achilles tendon repair History of cardiac cath History of cardiac radiofrequency ablation S/P insertion of spinal cord stimulator History of colonoscopy History of right salpingo-oophorectomy History of tubal ligation History of left knee surgery History of total right knee replacement History of revision of total replacement of right knee joint History of back surgery Social History Household Members: Spouse and Family Household Members Other:: Mother Housing: Apartment Are you a primary direct care professional to a significant other at home: Yes (direct care professional for mother, and daughter to assist post-op) Do you presently have visiting nurse or other home services: No Patient Tobacco Use Status: Current everyday Tobacco user Tobacco use type: Cigarette Cigarettes Per Day: 6 Years Smoked: 43 e-Cigarette/Vaping Use: Currently Using Second Hand Smoke Exposure: No service: No Current occupational status: unemployed Current occupational exposures/hazards: No Cognitive needs: No Hearing needs: No Vision needs: No Meds Allergies Allergy/AdvReac Type Severity Reaction Status Date / Time effexor Allergy Severe shortness Verified 09/22/23 10:13 of breath escitalopram Allergy Mild rash Verified 09/22/23 10:13 Seasonal Allergies Allergy Mild rhinitis, Verified 09/22/23 10:13 watery eyes tramadol [TRAMADOL] AdvReac Intermediate NAUSEA Verified 09/22/23 10:13 paroxetine [From PAXIL] AdvReac Mild AGITATION Verified 09/22/23 10:13 Active Medications: Current Medications Acetaminophen (Acetaminophen 325 Mg Tablet) 650 mg PO Q6H PRN PRN Reason: Pain, Mild (Pain Scale 1-3) Aspirin (Aspirin 325 Mg Tablet) 325 mg PO BID [facility] Buprenorphine/Naloxone (Buprenorphine/Naloxone 8/2 Mg Film) 1 film SUBLINGUAL TID [facility] Last Admin: 09/27/23 14:41 Dose: 1 film Celecoxib (Celecoxib 200 Mg Capsule) 200 mg PO BID [facility] Docusate Sodium (Docusate Sodium 100 Mg Capsule) 100 mg PO BID [facility] Fluoxetine HCl (Fluoxetine Hcl 20 Mg Capsule) 60 mg PO DAILY [facility] Last Admin: 09/27/23 14:41 Dose: 60 mg Hydromorphone HCl (Hydromorphone Hcl 0.5 Mg/0.5 Ml Syringe) 0.25 mg IVPUSH Q5M PRN; Protocol PRN Reason: Pain, Severe (Pain Scale 7-10) Hydromorphone HCl (Hydromorphone Hcl 0.5 Mg/0.5 Ml Syringe) 0.5 mg IVPUSH Q3H PRN; Protocol PRN Reason: Pain, Severe (Pain Scale 7-10) Lactated Ringer's (Lr) 1,000 mls @ 100 mls/hr IVCONT .Q10H [facility] Stop: 09/28/23 12:18 Last Admin: 09/27/23 14:42 Dose: 100 mls/hr Cefazolin Sodium/Dextrose (Ancef) 2 gm in 50 mls @ 100 mls/hr IV POSTOP ONE Stop: 09/27/23 16:59 Levothyroxine Sodium (Levothyroxine Sodium 112 Mcg Tablet) 112 mcg PO DAILY@0600 [facility] Ondansetron HCl (Ondansetron Hcl 4 Mg/2 Ml Vial) 4 mg IVPUSH Q8H PRN PRN Reason: Nausea and Vomiting Oxycodone HCl (Oxycodone Hcl Immed Release 5 Mg Tablet) 10 mg PO Q4H PRN PRN Reason: Pain, Moderate(Pain Scale 4-6) Oxycodone HCl (Oxycodone Hcl Er 10 Mg Tab.Er.12h) 10 mg PO BID [facility] Sodium Chloride (0.9 % Sodium Chloride Flush 3 Ml Syringe) 3 ml IVFLUSH QSHIFT [facility] Last Admin: 09/27/23 14:42 Dose: 3 ml Trazodone HCl (Trazodone Hcl 50 Mg Tablet) 50 mg PO BEDTIME PRN PRN Reason: for insomnia Home Medications Medication Instructions Recorded Confirmed Last Taken Type ascorbic acid (vitamin C) 250 mg 250 mg PO DAILY 09/20/23 09/27/23 09/26/23 History tablet (Vitamin C) multivitamin with minerals-folic 1 tab PO DAILY 09/20/23 09/27/23 09/26/23 History acid 200 mcg chewable tablet (Multivitamin Gummies) Physical Exam Vital Signs and Narrative: Vital Signs: Last Vital Signs Temp 96.8 F 09/27/23 15:32 Pulse 82 09/27/23 15:32 Resp 18 09/27/23 15:32 BP 124/66 09/27/23 15:32 Pulse Ox 97 09/27/23 15:32 O2 Del Method Room Air 09/27/23 15:32 BMI result Body Mass Index 34.5 Appearing in no acute distress head is normocephalic atraumatic eyes pupils are PERRLA sclera is anicteric mouth throat mucous membranes are intact and moist neck is supple no lymphadenopathy, no JVD noted lung sounds are clear to auscultation heart regular rate rhythm, clear S1, S2 positive bowel sounds, abdomen is soft, nontender neuro patient is alert x3, no focal deficits Left knee dsg clean, dry and intact Results Labs 09/28/23 05:33 09/28/23 05:33 Imaging Radiologist's Impressions: Impressions Knee X-Ray 09/27/23 12:45 IMPRESSION: Left total knee arthroplasty in anatomic alignment and position. Assessment and Plan (1) Osteoarthritis of left knee: Qualifiers: Osteoarthritis type: primary Qualified Code(s): M17.12 - Unilateral primary osteoarthritis, left knee Status: Acute Plan 58 year old women Status post left total knee arthroplasty Left total knee arthroplasty Management as per surgical team Pain management Hypertension On chlorthalidone at home, would suggest hold for now as patient is postoperative blood pressures are on the lower side Hypothyroidism Levothyroxine Hyperlipidemia Statin History of opioid abuse Continue Suboxone Mental health Continue home medications Smoker. Discussed importance of smoking cessation offered nicotine replacement, declined DVT prophylaxis as per admitting provider Medical consultation complete. Will sign off
[2023-09-27] MEDS: ceFAZolin Sodium/Dextrose,Iso 2 GM/50 ML PIGGYBACK IV (15:52)
[2023-09-27] MEDS: HYDROmorphone HCl 0.5 MG/0.5 ML SYRINGE IVPUSH ×2 (16:12→19:10)
[2023-09-27] MEDS: oxyCODONE HCl Immed Release 5 MG TABLET 10 MG PO ×2 (16:47→21:48)
[2023-09-27] MEDS: Acetaminophen 325 MG TABLET 650 MG PO (16:48)
[2023-09-27] MEDS: Celecoxib 200 MG CAPSULE PO (20:24)
[2023-09-27] MEDS: traZODone HCL 50 MG TABLET PO (20:24)
[2023-09-27] MEDS: Docusate Sodium 100 MG CAPSULE PO (20:24)
[2023-09-27] MEDS: oxyCODONE HCl ER 10 MG TAB.ER.12H PO (20:24)
[2023-09-28] MEDS: Lactated Ringers 1,000 ML 100 ML IVCONT (00:15)
[2023-09-28] MEDS: HYDROmorphone HCl 0.5 MG/0.5 ML SYRINGE IVPUSH ×4 (00:17→12:06)
[2023-09-28 01:01] VITALS: RESP 16
[2023-09-28] MEDS: oxyCODONE HCl Immed Release 5 MG TABLET 10 MG PO ×4 (03:05→16:19)
[2023-09-28 03:50] VITALS: BP 133/65; PULSE 94; RESP 18; TEMP 36.6; O2SAT 94
[2023-09-28 04:52] VITALS: RESP 16
--- NOTE | 2023-09-28 04:53 | PC.NURSE ---
Patient noticed moderate amount of blood gush from the medial of left knee surgical site. Pressure applied , bleeding under control. Abdominal pads with Gary wrap used to reinforced Aquacel dressing. Patient denies dizziness, denies lightheadedness, vitals signs WNL. Patient is back in bed ice applied , all questions answered. Patient has no concern at this time will continue to monitor. Tube Builder aware and Nia Hernández notified via tiger text.
[2023-09-28 05:42] LABS: MANUAL DIFF FLAG NO
[2023-09-28] MEDS: Levothyroxine Sodium 112 MCG TABLET PO (05:47)
[2023-09-28 05:49] LABS: Basophils Percent Auto 0.3 % (0-2); Hematocrit 34.3 % (37.0-47.0); Hemoglobin 10.8 g/dl (12.0-16.0); Imm Gran Abs Auto 0.03 X10*3/uL (0.00-0.03); Imm Gran Pct Auto 0.3 % (0.0-0.4); Lymphocytes Absolute Auto 1.1 X10*3/uL (1.2-4.9); Lymphocytes Percent Auto 12.3 % (20-40); Mean Corpuscular HGB Conc 31.5 g/dl (31.0-35.0); Mean Corpuscular Hemoglobin 29.2 pg (27.0-33.0); Mean Corpuscular Volume 92.7 fL (80.0-98.0); Mean Platelet Volume 10.7 fL (9.4-12.3); Monocytes Absolute Auto 0.8 X10*3/uL (0.1-1.2); Neutrophils Absolute Auto 6.9 x10*3/uL (2.0-8.3); Neutrophils Percent Auto 78.1 % (45-73); Platelet Count 231 X10*3/uL (160-400); Red Cell Distribution Width 13.2 % (11.0-16.0); White Blood Count 8.9 X10*3/uL (4.8-10.8)
[2023-09-28 06:04] LABS: Anion Gap 11 (12-20); Blood Urea Nitrogen 13 mg/dL (9-16); Calcium 8.8 mg/dL (8.4-10.2); Carbon Dioxide 30 mmol/L (22-29); Chloride 101 mmol/L (96-108); Creatinine Clr Calc Pharmacy 115.9; Estimated Glomerular Filt Rate > 60; Glucose Fasting 126 mg/dL (60-99); Potassium 3.9 mmol/L (3.3-5.1); Sodium 138 mmol/L (135-145)
[2023-09-28 07:24] VITALS: BP 133/76; PULSE 104; RESP 18; TEMP 36.2; O2SAT 96
[2023-09-28 07:28] VITALS: BP 133/76; PULSE 104; O2SAT 96
[2023-09-28] MEDS: oxyCODONE HCl ER 10 MG TAB.ER.12H PO (07:51)
[2023-09-28] MEDS: Docusate Sodium 100 MG CAPSULE PO (07:51)
[2023-09-28] MEDS: FLUoxetine HCl 20 MG CAPSULE 60 MG PO (07:51)
[2023-09-28] MEDS: 0.9 % Sodium Chloride Flush 3 ML SYRINGE IVFLUSH ×2 (07:52→14:53)
[2023-09-28] MEDS: Celecoxib 200 MG CAPSULE PO (07:52)
--- NOTE | 2023-09-28 08:00 | W.MHC.F2F ---
Service Date Service Date: 09/28/23 Encounter Date of encounter: 09/28/23 Reasons for Services Signs and symptoms assessed: Pt. is considered homebound due to recent surgery. Unable to drive, poor balance, poor gait mechanics. s/p LTKA. Reason for physical therapy: home safety and mobility, therapeutic exercises, restore joint function, gait/transfer training, assess need for DME and ADL training Homebound: Leaving the home is medically contraindicated at this time without the asist of a device and/or another person due th the listed conditions above and below. Reason homebound: unsteady gait / fall risk, leg weakness, pain with ambulation, pain with transfers, poor balance / fall risk and unable to drive Certification: Based on the above findings, I certify that this patient is confined to the home and needs intermittent retirement care, physical therapy and/or speech therapy, or continues to need occupational therapy. The patient is under my care, and I have initiated the establishment of the plan of care. The patient will be followed by a physician who will periodically review the plan of care. Time Spent With Patient Time: Total time managing care of this patient today ____ minutes.
--- NOTE | 2023-09-28 08:00 | PM.DS ---
DS: Providers Provider Date of Service: 09/28/23 Primary care physician: MARY Wallace- Consults: 09/27/23 14:05 Consult to Hospitalist Routine Comment: Consulting Provider: Hospitalist Reason For Exam: medical management DS: Diagnosis Discharge Diagnosis (1) Osteoarthritis of left knee: Status: Acute DS: Summary Hospital Course Hospital Course: The patient underwent a successful Left total knee arthroplasty, they were transferred to PACU and then to the floor to recover. During their stay, their vitals were stable, afebrile at 97.2. Labs were unremarkable, H/H 10.8/34.3. POD 1 they were started on Aspirin 325mg po bid for DVT ppx, they also received Physical Therapy services twice a day. Prior to discharge, their dressing was changed, incision clean dry and intact, new Aquacel dressing applied and the plan was to be discharged home with VNA services. Time Attestation Discharge coordination time: Less than 30 minutes Quality: Safe Use of Opioids Does Pt have an Active Cancer Diagnosis on the Problem List?: No Quality: Stroke Does the patient have a stroke diagnosis?: No Physical Exam Vital Signs: Vital Signs: Last Vital Signs Temp 97.2 F 09/28/23 07:24 Pulse 104 H 09/28/23 07:28 Resp 18 09/28/23 07:24 BP 133/76 09/28/23 07:28 Pulse Ox 96 09/28/23 07:28 O2 Del Method Room Air 09/28/23 07:24 BMI result Body Mass Index 34.5 Const: General: cooperative and no acute distress Orientation/consciousness: patient oriented x3 Neck: Neck: Yes normal visual inspection and Yes no lymphadenopathy Resp: Effort & Inspection: normal respiratory effort and able to speak in complete sentences Cardio: Peripheral pulses: Peripheral pulses 2+ throughout GI: Inspection: Yes normal to inspection Palpation (GI): Soft to palpation Skin: General skin exam: no rashes or lesions noted Neuro: General: patient oriented x3 Extrem: Other: Left knee rose are intact. Bloody drainage. No evidence of infection. Calf supple nontender. NVI. DS: Data Data Completed and Pending Pending studies at discharge: Pending at discharge 09/27/23 11:33 Surgical [PTH] Routine Labs on day of discharge: Laboratory Results - last 24 hr 11/15/23 05:33 WBC 8.9 RBC 3.70 L Hgb 10.8 L Hct 34.3 L MCV 92.7 MCH 29.2 MCHC 31.5 RDW 13.2 Plt Count 231 MPV 10.7 Immature Gran % (Auto) 0.3 Neut % (Auto) 78.1 H Lymph % (Auto) 12.3 L [place] % (Auto) 9.0 Eos % (Auto) 0.0 Baso % (Auto) 0.3 Lymph # (Auto) 1.1 L [place] # (Auto) 0.8 Eos # (Auto) 0.0 Baso # (Auto) 0.0 Abs Immat Gran (auto) 0.03 Absolute Neuts (auto) 6.9 Absolute Nucleated RBC 0.000 Nucleated RBC % (auto) 0.0 Sodium 138 Potassium 3.9 Chloride 101 Carbon Dioxide 30 H Anion Gap 11 L BUN 13 Creatinine 0.65 Estim Creat Clear Calc 115.9 Estimated GFR > 60 Fasting Glucose 126 H Calcium 8.8 D Discharge Plan Discharge Patient Disposition: Home, Self-Care Referrals: Trevor Ahn FNP- [Primary Care Provider] - 1 Week Discharge Medications: New celecoxib 200 mg Capsule 200 mg PO BID 30 Days Qty: 60 0RF acetaminophen 325 mg Tablet 650 mg PO Q6H PRN (Reason: Pain, Mild (Pain Scale 1-3)) 30 Days Qty: 240 0RF aspirin 325 mg Tablet 325 mg PO BID 42 Days Qty: 84 0RF oxycodone 10 mg tablet 10 mg PO Q4H PRN (Reason: Pain, Moderate(Pain Scale 4-6)) 7 Days Qty: 42 0RF Rx Instructions: Partial Fill upon patient request. docusate sodium 100 mg Capsule 100 mg PO BID 30 Days Qty: 60 0RF Continued (DME) compr.stocking,knee,long,x-lrg Misc See Rx Instructions .Route Qty: 2 4RF Rx Instructions: 20/30 fluoxetine 20 mg capsule 60 mg PO QAM Qty: 270 1RF levothyroxine 112 mcg tablet 112 mcg PO DAILY Qty: 90 1RF chlorthalidone 25 mg tablet 25 mg PO DAILY Qty: 90 1RF trazodone 50 mg tablet 50 mg PO BEDTIME PRN (Reason: for insomnia) Qty: 30 3RF atorvastatin 20 mg tablet 20 mg PO BEDTIME 90 Days Qty: 90 1RF ascorbic acid (vitamin C) [Vitamin C] 250 mg Tablet 250 mg PO DAILY Multivitamin Gummies 200 mcg Tablet,Chewable 1 tab PO DAILY buprenorphine-naloxone [Suboxone] 8-2 mg film 1 film sublingual TID Qty: 90 1RF Rx Instructions: PATIENT TAKING 12MG TID PER PATIENT 3 DAYS PRIOR TO THE SURGERY PER INSTRUCTIONS Discharge Orders: Discharge Order (Routine); Ordered 09/28/23 Ordered By: Nia Hernández Diet: Advance to usual diet Activity on Discharge: Use cane or walker Activity Restrictions/Additional Instructions: Physical Therapy for ROM 0-120, quad strength, gait training. Use walker for ambulation Limit stair climbing, No shower, No tub bath, No driving Continue anticoagulant Keep Aquacel dressing clean, dry and intact. Follow up with orthopedics in 2 weeks
[2023-09-28] MEDS: Acetaminophen 325 MG TABLET 650 MG PO ×2 (08:27→16:18)
[2023-09-28] MEDS: ondansetron HCL 4 MG/2 ML VIAL IVPUSH (08:27)
--- NOTE | 2023-09-28 09:15 | MHC.CM.PN ---
order for home, self-care prior to CM interview. BLANKA pompa.
[2023-09-28] MEDS: Buprenorphine/Naloxone 8/2 mg FILM 1 FILM SUBLINGUAL ×2 (10:15→14:53)
--- NOTE | 2023-09-28 10:36 | P.OP_ITS ---
Operative Note Operative Note Date of Service: 09/27/23 Narrative: Date of Service: 09/27/23 Pre-op diagnosis: Left knee OA Post-op diagnosis: same Procedure: Left TKA Implants: Muriel Triathlon posterior stabilized press fit 04/18/ps/32a Surgeon: Lizandro Schwartz MD Was an Concrete Mixing Truck Driver used for this Procedure?: No Estimated blood loss (mL): 100 Tourniquet time (min): 65 IV fluids (mL): 1,000 Pathology: other Condition: stable Disposition: PACU Procedure in detail: The patient was brought to the operating room and prepped and draped in standard sterile fashion. A time-out was called to identify proper site proper procedure proper surgeon and IV antibiotics were administered. 1 g of IV tranexamic acid was administered. I began by making a midline incision to the retinaculum and performed a medial parapatellar arthrotomy. The patella was translated laterally and the knee was flexed up. The medial compartment was eburnated . I performed a small medial peel and resected the infrapatellar fat pad. Petoskey's line was then used to drill my intramedullary femoral guide and my distal femur cut of 10 mm was made in 5 degrees of valgus while protecting the soft tissues. I then measured a # 6 femur and placed my cutting guide and made my anterior posterior and chamfer cuts protecting the soft tissues at all times. Once I was satisfied with my cuts I turned my attention to the tibia. I removed the meniscus medially and laterally and , using an external cutting guide, in line with the tibial crest and the third ray, I made my distal tibial cut in 0 deg slope of while protecting the posterior soft tissues at all times. An extension block was used to confirm appropriate amount of bony resection. I then sized a #5 tibia and once I was satisfied that there was complete tibial coverage I placed my trial and with the trial femur in place took the knee through range of motion. I was satisfied with the extension and flexion as well as the stability and balance at 0, 30 and 90 degrees. I then turned my attention to the patella where I removed 1 cm from the undersurface of the patella and then trialed a 32a patellar button. Again the knee was taken through range of motion I was satisfied with the tracking. I then returned to the femur and drilled my femoral lug holes and prepared the tibia. A femoral bone plug was placed and the knee was irrigated copiously. I then press fit the patella, tibia and femur in standard fashion. I trialed different inserts until I selected a #10 insert. The final insert was placed and a 3 minutes iodine soak with local TXA was performed. A Werewolf cautery wand was used to maintain hemostasis over the capsule and meniscal beds, the gutters. The knee was then closed with a running Quill suture, a 3 0 Vicryl and rose on the skin. Patient was then placed in sterile dressing and brought to recovery room in stable condition there were no known complications.
--- NOTE | 2023-09-28 11:04 | MHC.CM.PN ---
D/C cancelled, will conduct full interview for appropriate and safe planning. CM to follow.
[2023-09-28 12:20] VITALS: O2SAT 96
--- NOTE | 2023-09-28 12:35 | MHC.CM.PN ---
Interview conducted w/Pt: Lives w/ and mother. No rev. services, still drives. to transport home at time of D/C. Pt indicates PT is giving her a cane to take home w/her. D/C plan is return home w/family via family. ? services as well for in-home rehab. CM to follow.
--- NOTE | 2023-09-28 15:25 | PC.NURSE ---
Dressing changed by Ortho this AM for leaaking through dressing. Pressure dressing applied. Patient given discharge instructions and ready to go home and dressing began leaking through again. Large amt blood. Dressing removed. Dripping noted from near bottom of incision. New pressure dressing reapplied with bulky dressing and MAREK wrap. Ortho notified and discharge on hold.
--- NOTE | 2023-09-28 15:51 | MHC.CM.PN ---
Messaged ortho PA in attempt at obtaining home w/services order for in-home PT, and Face to Face Sheet completion. Pending response. Called ortho office *[phone], no one picked up. Will continue to try to communicate for Pt's D/C needs per PT report. CM to follow.
--- NOTE | 2023-09-28 15:54 | MHC.CM.PN ---
Meade back fro ortho PA; ortho will complete in-home PT orders for Pt's D/C, as well as F2F for VNA visits. Communicated this information via [place] to Valeria (VNA rep) as Pt's room number had been removed from [employer] prior to CM and VNA ability to correspond via the [email or web address] system. VNA updated and informed and acknowledged. CM confirmed plan with Pt who is waiting for her 's arrival to pick her up and transport her home.
--- NOTE | 2023-09-29 06:45 | HO.POSTANES ---
Post Anesthesia Evaluation Post Anesthesia Evaluation Date of Service: 09/28/23 Vital Signs: Patient seen on 09/28/23 at 740am Vitals: 133/76, 104, 18, 97.2, 96%RA Anesthesia: Spinal and Nerve Block Mental Status: Awake Pain Control: Satisfactory Nausea/Vomiting: None Hydration: Adequate Anesthesia-Related Issues: No Anes. Related Issues
== END 2023-09-28 16:54 | disposition home health service (06) ==
LOC: HO.SSS 07:15 → HO.S3 13:43
PROVIDERS: Physician Assistant; PCP Nurse Practitioner Family; Visit Provider Orthopaedic Surgery
PROC: (CPT 27447; principal; 2023-09-27 09:40)
DX: M17.12 Unilateral primary osteoarthritis, left knee (principal); M25.562 Pain in left knee; R26.2 Difficulty in walking, not elsewhere classified; J43.9 Emphysema, unspecified; J30.2 Other seasonal allergic rhinitis; I35.0 Nonrheumatic aortic (valve) stenosis; I10 Essential (primary) hypertension; Z23 Encounter for immunization; E78.5 Hyperlipidemia, unspecified; E03.9 Hypothyroidism, unspecified; Z79.899 Other long term (current) drug therapy; F11.21 Opioid dependence, in remission; Z88.8 Allergy status to other drugs, medicaments and biological substances; Z96.651 Presence of right artificial knee joint; F17.210 Nicotine dependence, cigarettes, uncomplicated; Z98.890 Other specified postprocedural states
CPT/HCPCS: 27447; 36415; 73560; 80048; 85014; 85018; 85025; 86850; 86900; 86901; 87640; 87641; 88305; 88311; 90471; 90686; 97110; 97116; 97162; C1776; J0690; J1170; J2250; J2405; J2704; J2795; J7120

== ENCOUNTER → 2023-09-27 07:09 | Outpatient (BNV) | payer MEDICARE, MEDICAID, SELFPAY | PROVIDERS: PCP Nurse Practitioner Family; Visit Provider Nurse Practitioner Acute Care | DX: M17.12 Unilateral primary osteoarthritis, left knee (principal) | CPT/HCPCS: 99221 ==

== ENCOUNTER → 2023-09-27 07:09 | Outpatient (BNV) | payer MEDICARE, MEDICAID, SELFPAY | PROVIDERS: PCP Nurse Practitioner Family; Visit Provider Orthopaedic Surgery | DX: Z47.1 Aftercare following joint replacement surgery (principal); Z96.652 Presence of left artificial knee joint | CPT/HCPCS: 27447; 99024; G0180 ==

== ENCOUNTER 2023-09-29 10:06 | Outpatient (AMB) | payer MEDICARE, MEDICAID, SELFPAY ==
--- NOTE | 2023-09-29 10:09 | MHC.OFFVIS ---
Intake Intake Visit Reasons: dressing change; left TKA 09/27/23 Intake Note: Aaliyah is a 58 year old female who presents today for a dressing change s/p left TKA 09/27/23 NE. Patient reports having a lot of soreness. Allergies effexor Allergy (Severe, Verified 09/29/23 10:09) shortness of breath escitalopram Allergy (Mild, Verified 09/29/23 10:09) rash Seasonal Allergies Allergy (Mild, Verified 09/29/23 10:09) rhinitis, watery eyes tramadol [TRAMADOL] Adverse Reaction (Intermediate, Verified 09/29/23 10:09) NAUSEA paroxetine [From PAXIL] Adverse Reaction (Mild, Verified 09/29/23 10:09) AGITATION HPI dressing change; left TKA 09/27/23 HPI Details 58-year-old female who presents in the office today for a dressing change; 2 days status post left total knee arthroplasty, which was performed on 09/27/[address] Schwartz. The patient reports having a lot of soreness. [facility] Medical History Emphysema/COPD Hyperplastic colon polyp (~2018) Hyperlipemia History of supraventricular tachycardia Nicotine dependence, cigarettes, uncomplicated HTN (hypertension) Hypothyroid Arthropathy of right knee Spinal cord stimulator dysfunction Right elbow tendonitis Surgical History History of Achilles tendon repair History of cardiac cath History of cardiac radiofrequency ablation S/P insertion of spinal cord stimulator History of colonoscopy History of right salpingo-oophorectomy History of tubal ligation History of left knee surgery History of total right knee replacement History of revision of total replacement of right knee joint History of back surgery Family History Father No problems noted. Mother Diabetes Mental health disorder Sister Mental health disorder Social History Household Members: Spouse and Family Household Members Other:: Mother Housing: Apartment Are you a primary primary health care nurse to a significant other at home: Yes (primary health care nurse for mother, and daughter to assist post-op) Do you presently have visiting nurse or other home services: No Patient Tobacco Use Status: Current everyday Tobacco user Tobacco use type: Cigarette Cigarettes Per Day: 6 Years Smoked: 43 e-Cigarette/Vaping Use: Currently Using Second Hand Smoke Exposure: No service: No Current occupational status: unemployed Current occupational exposures/hazards: No Cognitive needs: No Hearing needs: No Vision needs: No Review of Systems Const All systems reviewed & are unremarkable except as noted in HPI and below Physical Exam Const General: cooperative, healthy appearing and no acute distress Resp Effort & Inspection: normal respiratory effort and able to speak in complete sentences Cardio Rate: regular rate Peripheral pulses: Peripheral pulses 2+ throughout GI Palpation (GI): Soft to palpation Skin Lesions: no lesions Rashes: no rashes Extrem Other: Left knee: Incision site is clean, dry, and intact. No active areas of drainage ro bleeding. Hyun intact. No surrounding erythema or drainage. No signs of infection. Assessment & Plan Assessment & Plan (1) Osteoarthritis of left knee: Code(s): M17.12 - Unilateral primary osteoarthritis, left knee Qualifiers: Osteoarthritis type: primary Qualified Code(s): M17.12 - Unilateral primary osteoarthritis, left knee Plan Ms. Espinoza is a 58-year-old female who presents in the office today for a dressing change; 2 days status post left total knee arthroplasty, which was performed on 09/27/[address] Schwartz. The patient reports having a lot of soreness. The wound was redressed with aquacel dressing and an MAREK wrap was applied to keep some compression on the incision site. She was instructed that if the bandage continues to fill she hsould contact the office for a bandage change regularly. She will follow up at her normal scheduled appointment, or sooner if needed. Patient Instructions: Scribed for Nia Hernández PA-C by Lora Milian medical physics professor, on 09/29/2023 at 10:21 am, EST. Coding Level of Care Code Global (83425) Diagnoses Primary osteoarthritis of left knee M17.12 Osteoarthritis type: primary
== END 2023-09-29 10:28 | disposition home or self-care (01) ==
PROVIDERS: PCP Nurse Practitioner Family; Visit Provider Physician Assistant
DX: M17.12 Unilateral primary osteoarthritis, left knee (principal)
CPT/HCPCS: 99024

== ENCOUNTER → 2023-09-29 10:06 | Outpatient (BNVA) | payer MEDICARE, MEDICAID, SELFPAY | PROVIDERS: PCP Nurse Practitioner Family; Visit Provider Physician Assistant ==

== ENCOUNTER 2023-10-10 10:00 | Outpatient (AMB) | payer MEDICARE, MEDICAID, SELFPAY ==
--- NOTE | 2023-10-10 10:09 | A.OFFVIS_ITS ---
Intake Intake Visit Reasons: bandage change Intake Note: Aaliyah is a 58 year old female who presents today for a dressing change s/p left TKA 09/27/23 NE. Patient reports having a bandage change on Tuesday which caused blisters on her calf from the tape. Allergies effexor Allergy (Severe, Verified 10/10/23 10:12) shortness of breath escitalopram Allergy (Mild, Verified 10/10/23 10:12) rash Seasonal Allergies Allergy (Mild, Verified 10/10/23 10:12) rhinitis, watery eyes tramadol [TRAMADOL] Adverse Reaction (Intermediate, Verified 10/10/23 10:12) NAUSEA paroxetine [From PAXIL] Adverse Reaction (Mild, Verified 10/10/23 10:12) AGITATION HPI bandage change HPI Details 58-year-old female who returns to [facility] today for a dressing change s/p left TKA, 09/27/[address] Schwartz. She states she had her last bandage change on Tuesday which caused blisters on her calf from the tape. [facility] Medical History (Updated 09/30/23 @ 00:03 by Shasta Mayes) Osteoarthritis of left knee Emphysema/COPD Hyperplastic colon polyp (~2018) Hyperlipemia History of supraventricular tachycardia Nicotine dependence, cigarettes, uncomplicated HTN (hypertension) Hypothyroid Arthropathy of right knee Spinal cord stimulator dysfunction Right elbow tendonitis Surgical History History of total left knee replacement History of Achilles tendon repair History of cardiac cath History of cardiac radiofrequency ablation S/P insertion of spinal cord stimulator History of colonoscopy History of right salpingo-oophorectomy History of tubal ligation History of left knee surgery History of total right knee replacement History of revision of total replacement of right knee joint History of back surgery Family History Father No problems noted. Mother Diabetes Mental health disorder Sister Mental health disorder Household Members: Spouse and Family Household Members Other:: Mother Housing: Apartment Are you a primary memory care program resident to a significant other at home: Yes (memory care program resident for mother, and daughter to assist post-op) Do you presently have visiting nurse or other home services: No Patient Tobacco Use Status: Current everyday Tobacco user Tobacco use type: Cigarette Cigarettes Per Day: 6 Years Smoked: 43 e-Cigarette/Vaping Use: Currently Using Second Hand Smoke Exposure: No service: No Current occupational status: unemployed Current occupational exposures/hazards: No Cognitive needs: No Hearing needs: No Vision needs: No Review of Systems Const All systems reviewed & are unremarkable except as noted in HPI and below Physical Exam Const General: cooperative and no acute distress Orientation/consciousness: patient oriented x3 Resp Effort & Inspection: normal respiratory effort and able to speak in complete sentences Cardio Peripheral pulses: Peripheral pulses 2+ throughout Neuro General: patient oriented x3 Extrem Other: Left knee: Incision clean, dry and intact. No erythema or drainage. Calf supple, nontender. NVI. Assessment & Plan Assessment & Plan (1) Status post total left knee replacement: Code(s): Z96.652 - Presence of left artificial knee joint Plan Incision was cleaned with chloraprep and new aquasol dressing was applied. The patient will return for routine postop appointment on October 13. Patient Instructions: Scribed for Kiera Hadley PA-C, by Jamel Barba medical lab technician, on 10/10/2023 at 10:00 AM EST. I, Kiera Hadley PA-C, have personally reviewed and agree with the information entered by the scribe. Coding Level of Care Code Global (53251) Diagnoses Status post total left knee replacement Z96.652
== END 2023-10-10 10:53 | disposition home or self-care (01) ==
PROVIDERS: PCP Nurse Practitioner Family; Visit Provider Physician Assistant
DX: Z96.652 Presence of left artificial knee joint (principal)
CPT/HCPCS: 99024

== ENCOUNTER → 2023-10-10 10:00 | Outpatient (BNVA) | payer MEDICARE, MEDICAID, SELFPAY | PROVIDERS: PCP Nurse Practitioner Family; Visit Provider Physician Assistant ==

== ENCOUNTER 2023-10-13 13:36 | Outpatient (AMB) | payer MEDICARE, MEDICAID, SELFPAY ==
--- NOTE | 2023-10-13 13:45 | A.OFFVIS_ITS ---
Intake Intake Visit Reasons: PO-LT TKA 09/27/23 NE Intake Note: Aaliyah is a 58 year old female who presents today for a post operative left TKA 09/27/23 NE. Patient reports sharp pain in the medial aspect of knee. States her knee feels like its going to give out. Allergies effexor Allergy (Severe, Verified 10/13/23 13:46) shortness of breath escitalopram Allergy (Mild, Verified 10/13/23 13:46) rash Seasonal Allergies Allergy (Mild, Verified 10/13/23 13:46) rhinitis, watery eyes tramadol [TRAMADOL] Adverse Reaction (Intermediate, Verified 10/13/23 13:46) NAUSEA paroxetine [From PAXIL] Adverse Reaction (Mild, Verified 10/13/23 13:46) AGITATION HPI PO-LT TKA 09/27/23 NE HPI Details 58-year-old female who returns to the [facility] today for post-op left TKA, 09/27/[address] Schwartz. She states she has a sharp pain at the medial aspect of her knee. She also c/o experiencing like her knee will give out. She is doing well otherwise and has no other concerns. [facility] Medical History (Updated 09/30/23 @ 00:03 by Shasta Mayes) Osteoarthritis of left knee Emphysema/COPD Hyperplastic colon polyp (~2018) Hyperlipemia History of supraventricular tachycardia Nicotine dependence, cigarettes, uncomplicated HTN (hypertension) Hypothyroid Arthropathy of right knee Spinal cord stimulator dysfunction Right elbow tendonitis Surgical History History of total left knee replacement History of Achilles tendon repair History of cardiac cath History of cardiac radiofrequency ablation S/P insertion of spinal cord stimulator History of colonoscopy History of right salpingo-oophorectomy History of tubal ligation History of left knee surgery History of total right knee replacement History of revision of total replacement of right knee joint History of back surgery Family History Father No problems noted. Mother Diabetes Mental health disorder Sister Mental health disorder Social History Household Members: Spouse and Family Household Members Other:: Mother Housing: Apartment Are you a primary laboratory animal caretaker to a significant other at home: Yes (laboratory animal caretaker for mother, and daughter to assist post-op) Do you presently have visiting nurse or other home services: No Patient Tobacco Use Status: Current everyday Tobacco user Tobacco use type: Cigarette Cigarettes Per Day: 6 Years Smoked: 43 e-Cigarette/Vaping Use: Currently Using Second Hand Smoke Exposure: No service: No Current occupational status: unemployed Current occupational exposures/hazards: No Cognitive needs: No Hearing needs: No Vision needs: No Review of Systems Const All systems reviewed & are unremarkable except as noted in HPI and below Physical Exam Extrem Other: Left knee: Incision clean, dry and intact. No erythema or joint effusion. ROM is 0-95 degrees. She has good quad activation. Calf supple, nontender. NVI. Assessment & Plan Assessment & Plan (1) Status post total left knee replacement: Code(s): Z96.652 - Presence of left artificial knee joint Plan Hyun removed, steri strips applied. She will begin to transition to Outpatient PT to continue working on Gait training, ROM and quad strength. No driving for another 4 weeks. She will require ppx abx for dental procedures. She will f/u in 4 weeks, sooner if needed. Orders: Orders PT Evaluation and Treatment 10/12/23 Z96.652 - Presence of left artificial knee joint Patient Instructions: Scribed for Kiera Hadley PA-C, by Jamel Barba medical insurance coding specialist, on 10/13/2023 at 1:30 PM EST. I, Kiera Hadley PA-C, have personally reviewed and agree with the information entered by the scribe. Coding Level of Care Code Global (47168) Diagnoses Status post total left knee replacement Z96.652
== END 2023-10-13 14:18 | disposition home or self-care (01) ==
PROVIDERS: PCP Nurse Practitioner Family; Visit Provider Physician Assistant
DX: Z96.652 Presence of left artificial knee joint (principal)
CPT/HCPCS: 99024

== ENCOUNTER → 2023-10-13 13:36 | Outpatient (BNVA) | payer MEDICARE, MEDICAID, SELFPAY | PROVIDERS: PCP Nurse Practitioner Family; Visit Provider Physician Assistant | DX: Z96.652 Presence of left artificial knee joint (principal) ==

== ENCOUNTER 2023-11-16 10:14 | Outpatient (AMB) | payer MEDICARE, MEDICAID, SELFPAY ==
--- NOTE | 2023-11-16 10:14 | MHC.AM.SUB ---
Intake Vital Signs 11/16/23 10:22 BP 122/74 Blood Pressure Location Lt radial Position Sitting Pulse 74 Pulse Source Pulse Oximeter Pulse Oximetry (%) 96 Oxygen Delivery Method Room Air Intake Visit Reasons: MAT Visit Intake Note: the patient presents for mat visit Supervising Fire Marshal Required: No Allergies effexor Allergy (Severe, Verified 11/16/23 10:23) shortness of breath escitalopram Allergy (Mild, Verified 11/16/23 10:23) rash Seasonal Allergies Allergy (Mild, Verified 11/16/23 10:23) rhinitis, watery eyes tramadol [TRAMADOL] Adverse Reaction (Intermediate, Verified 11/16/23 10:23) NAUSEA paroxetine [From PAXIL] Adverse Reaction (Mild, Verified 11/16/23 10:23) AGITATION Do you need a note to return to daycare/school/sports/work: No HPI MAT Visit HPI Details Patient presents for ANUJ treatment and follow up She has been doing well with recovery, has no concerns today. Received her TKR in September that she is currently still on the mend from- she has follow up with surgeon soon. Expressed some concern about a friend's son who is currently addicted to pills- she reflected on her own recovery and how far she has come. [facility] Medical History (Updated 09/30/23 @ 00:03 by Shasta Mayes) Osteoarthritis of left knee Emphysema/COPD Hyperplastic colon polyp (~2017) Hyperlipemia History of supraventricular tachycardia Nicotine dependence, cigarettes, uncomplicated HTN (hypertension) Hypothyroid Arthropathy of right knee Spinal cord stimulator dysfunction Right elbow tendonitis Surgical History History of total left knee replacement History of Achilles tendon repair History of cardiac cath History of cardiac radiofrequency ablation S/P insertion of spinal cord stimulator History of colonoscopy History of right salpingo-oophorectomy History of tubal ligation History of left knee surgery History of total right knee replacement History of revision of total replacement of right knee joint History of back surgery Family History Father No problems noted. Mother Diabetes Mental health disorder Sister Mental health disorder Social History Household Members: Spouse and Family Household Members Other:: Mother Housing: Apartment Are you a primary care provider to a significant other at home: Yes (care provider for mother, and daughter to assist post-op) Do you presently have visiting nurse or other home services: No Patient Tobacco Use Status: Current everyday Tobacco user Tobacco use type: Cigarette Cigarettes Per Day: 6 Years Smoked: 43 e-Cigarette/Vaping Use: Currently Using Second Hand Smoke Exposure: No service: No Current occupational status: unemployed Current occupational exposures/hazards: No Cognitive needs: No Hearing needs: No Vision needs: No Review of Systems Const Reports as per HPI Physical Exam Vital Signs: Last Vital Signs Pulse 74 11/16/23 10:22 BP 122/74 11/16/23 10:22 Pulse Ox 96 11/16/23 10:22 Oxygen Delivery Method Room Air 11/16/23 10:22 Const General: cooperative, comfortable and no acute distress Resp Effort & Inspection: normal respiratory effort and able to speak in complete sentences Psych Appearance: grossly normal Mental Status: mental status grossly normal Speech and movement: Normal speech and movement present Affect: normal affect Attitude: cooperative Assessment & Plan Assessment & Plan (1) Opioid use disorder, moderate, in sustained remission: Code(s): F11.21 - Opioid dependence, in remission Plan: -Continue suboxone at current dose -Follow up 8 weeks Medications: Changed From buprenorphine-naloxone 8-2 mg (Suboxone) PATIENT TAKING 12MG TID PER PATIENT 3 DAYS PRIOR TO THE SURGERY PER INSTRUCTIONS 1 film sublingual TID 90 ea 1RF To buprenorphine-naloxone 8-2 mg (Suboxone) 1 film sublingual TID 90 ea 1RF Refilled buprenorphine-naloxone 8-2 mg (Suboxone) PATIENT TAKING 12MG TID PER PATIENT 3 DAYS PRIOR TO THE SURGERY PER INSTRUCTIONS 1 film sublingual TID 90 ea 1RF Coding Level of Care Code Est Pt Level 3 (29168) Diagnoses Opioid use disorder, moderate, in sustained remission F11.21
[2023-11-16 10:22] VITALS: BP 122/74; PULSE 74; O2SAT 96
== END 2023-11-16 10:50 | disposition home or self-care (01) ==
PROVIDERS: PCP Nurse Practitioner Family; Visit Provider Nurse Practitioner Family
DX: F11.21 Opioid dependence, in remission (principal)
CPT/HCPCS: 99213

== ENCOUNTER → 2023-11-16 10:14 | Outpatient (BNVA) | payer MEDICARE, MEDICAID, SELFPAY | PROVIDERS: PCP Nurse Practitioner Family; Visit Provider Nurse Practitioner Family | DX: Z51.81 Encounter for therapeutic drug level monitoring (principal); F11.21 Opioid dependence, in remission | CPT/HCPCS: 99212 ==

== ENCOUNTER 2023-11-17 12:53 | Outpatient (AMB) | payer MEDICARE, MEDICAID, SELFPAY ==
--- NOTE | 2023-11-17 13:11 | MHC.OFFVIS ---
Intake Intake Visit Reasons: PO-left TKA 09/27/23 NE Intake Note: Aaliyah is a 58 year old female who presents today for a post operative appointment s/p Left TKA 09/27/23. Patient reports that she is doing well with some pain and stiffness . She would like to have more sessions of PT to increase ROM. Significant stabbing pain is felt on the medial aspect of the knee which is always present Allergies effexor Allergy (Severe, Verified 11/16/23 10:23) shortness of breath escitalopram Allergy (Mild, Verified 11/16/23 10:23) rash Seasonal Allergies Allergy (Mild, Verified 11/16/23 10:23) rhinitis, watery eyes tramadol [TRAMADOL] Adverse Reaction (Intermediate, Verified 11/16/23 10:23) NAUSEA paroxetine [From PAXIL] Adverse Reaction (Mild, Verified 11/16/23 10:23) AGITATION HPI PO-left TKA 09/27/23 NE HPI Details Aaliyah is a 58 year old woman who presents ~7 weeks S/P left TKA. She says she is doing well but complains of a constant sharp pain in the medial aspect of her knee. She also still has some stiffness and she would like another order for PT so she can continue to work on ROM. [facility] Medical History Osteoarthritis of left knee Emphysema/COPD Hyperplastic colon polyp (~2018) Hyperlipemia History of supraventricular tachycardia Nicotine dependence, cigarettes, uncomplicated HTN (hypertension) Hypothyroid Arthropathy of right knee Spinal cord stimulator dysfunction Right elbow tendonitis Surgical History History of total left knee replacement History of Achilles tendon repair History of cardiac cath History of cardiac radiofrequency ablation S/P insertion of spinal cord stimulator History of colonoscopy History of right salpingo-oophorectomy History of tubal ligation History of left knee surgery History of total right knee replacement History of revision of total replacement of right knee joint History of back surgery Family History Father No problems noted. Mother Diabetes Mental health disorder Sister Mental health disorder Social History Household Members: Spouse and Family Household Members Other:: Mother Housing: Apartment Are you a primary plant health care technician to a significant other at home: Yes (plant health care technician for mother, and daughter to assist post-op) Do you presently have visiting nurse or other home services: No Patient Tobacco Use Status: Current everyday Tobacco user Tobacco use type: Cigarette Cigarettes Per Day: 6 Years Smoked: 43 e-Cigarette/Vaping Use: Currently Using Second Hand Smoke Exposure: No service: No Current occupational status: unemployed Current occupational exposures/hazards: No Cognitive needs: No Hearing needs: No Vision needs: No Review of Systems Const All systems reviewed & are unremarkable except as noted in HPI and below Physical Exam Const General: no acute distress, alert and awake Orientation/consciousness: patient oriented x3 HEENT Head: Yes normocephalic and Yes atraumatic Eyes EOM: EOMs intact bilaterally Resp Effort & Inspection: normal respiratory effort and able to speak in complete sentences Cardio Jugular venous distension: no JVD Skin General skin exam: turgor normal Rashes: no rashes Neuro General: patient oriented x3 Extrem Other: inc c/d/i 0-120 stable to v/v stress Psych Appearance: grossly normal Affect: normal affect Attitude: cooperative Assessment & Plan Assessment & Plan (1) Status post total left knee replacement: Code(s): Z96.652 - Presence of left artificial knee joint Plan: Doing well Continue PT for strengthening - ordered Plan Scribed for Lizandro Schwartz MD by Sachin Lopez, medical orderly, on 11/17/23 at 1:25 PM, EST. Orders: Orders PT Evaluation and Treatment Today Z96.652 - Presence of left artificial knee joint Coding Level of Care Code Global (33284) Diagnoses Status post total left knee replacement Z96.652
== END 2023-11-17 13:38 | disposition home or self-care (01) ==
PROVIDERS: PCP Nurse Practitioner Family; Visit Provider Orthopaedic Surgery
DX: Z96.652 Presence of left artificial knee joint (principal)
CPT/HCPCS: 99024

== ENCOUNTER → 2023-11-17 12:53 | Outpatient (BNVA) | payer MEDICARE, MEDICAID, SELFPAY | PROVIDERS: PCP Nurse Practitioner Family; Visit Provider Orthopaedic Surgery | DX: Z47.1 Aftercare following joint replacement surgery (principal); Z96.652 Presence of left artificial knee joint | CPT/HCPCS: 99212 ==

== ENCOUNTER 2023-12-15 16:00 | Outpatient (RCR) | payer MEDICARE, MEDICAID, SELFPAY ==
--- NOTE | 2023-10-13 15:25 | MHC.PT.EP ---
[facility] [place] Office [place] Office [place] Office [address] [phone] F: [phone] F: [phone] F: [phone] F: [phone] Physical Therapy Plan of Care Date of Evaluation: 10/13/23 Date of Surgery: 09/27/23 Diagnosis: S/P LEFT TKA Assessment: 58 YO FEMALE REF TO PT S/P LEFT TKA ON 09/27/[address] TRAN. SHE HAS A H/O PRIOR Rt TKA AND A LEFT ACHILLES' REPAIR. SHE RESIDES W HER SPOUSE IN A 1 LEVEL HOME AND IS CURRENTLY AMB W A ROLLATOR. OBJECTIVE FINDINGS: PO ROM DEFICITS LEFT KNEE, TIGHT HIP FLEXORS/ CALF MM, (+) STRENGTH DEFICITS, AND GENERAL POST-OP PAIN IN LEFT KNEE. FUNCTIONALLY, THE Pt IS LIMITED WITH DECR STANDING KENDALL, ALTERED GAIT MECHANICS, STAIR MGMT, AND RESTRICTED WITH MORE PHYSICALLY DEMANDING ADLs. THE Pt CARES FOR HER MOTHER, WHO RESIDES W HER. SHE APPEARS TO BE MOTIVATED WITH HER HEP AND THE Pt WOULD BENEFIT FROM PT AT THIS TIME TO GUIDE HER IN HER POST-OP COURSE, DEV A PROGR HEP, ADDRESS PAIN MGMT, AND OBTAINING MAXIMAL LEVEL OF FUNCTIONAL INDEPENDENCE. Frequency and Duration: The patient will be seen 2 x WK x 10 WKS Short Term Goals: *DECREASE LEFT KNEE PAIN TO 2-3/10 *IMPROVE AROM Lt KNEE 0* TO 120* *THE Pt DEMON MORE EFFICIENT SIT<-> STAND TRANSFERS AND GAIT MECH ON LEVEL GROUND AND STAIRS Correctional Sergeant Goals: *Pt WILL IMPROVE LUMBOPELVIC/ Lt LE STRENGTH TO AT LEAST 5-/5 *Pt RESUME AT LEAST PLOF EVIDENT W IMPROVED LEFI SCORE *Pt INDEP W PROGR HEP AND SELF-SX MGMT TECH *SLS LEFT x 10 SEC Treatment Plan: Modalities to reduce pain, spasms and effusion. Manual therapy to restore motion and function. Therapeutic exercise to improve strength and flexibility. Neuromuscular re-education for posture and balance. Therapeutic activities to return to functional activities of daily living. Electronically signed by: REINA SPENCER,PT Please sign and return to therapist. Thank you for your referral.
--- NOTE | 2024-01-16 11:14 | MHC.PT.DC ---
[facility] [place] Office [place] Office [place] Office [address] Abhinav Conley [address] [phone] F: [phone] F: [phone] F: [phone] F: [phone] Physical Therapy Discharge Report Diagnosis: S/P LEFT TKA Date of Surgery: 09/27/23 Date of Evaluation: 10/13/23 Date of Discharge: 01/16/24 Treatments to Date: 11 Cancellations to Date: 0 No Shows to Date: 2 Discharge Status: Achieved Goals Improved Function Independent with HEP Patient Elected to Stop Discharge Summary: Patient came to 11 tx sessions. She did not return for more care so her chart was DC'd after 30 days. She has an HEP to continue on her own. She was educated on safety, healing times, importance of HEP. DC to HEP. Electronically signed by: Vera Bearden PT Please sign and return to therapist. Thank you for your referral.
== END 2024-01-16 11:14 | disposition home or self-care (01) ==
LOC: HO.PTCHIC 16:00
PROVIDERS: PCP Nurse Practitioner Family; Visit Provider Physician Assistant
DX: Z96.652 Presence of left artificial knee joint (principal)
CPT/HCPCS: 97110; 97116; 97140; 97162

== ENCOUNTER 2023-12-23 10:50 | Outpatient (REF) | payer MEDICARE, MEDICAID, SELFPAY ==
--- NOTE | ~2023-12-23 | XR_ITS ---
EXAMINATION: Left knee x-ray. Standing x-ray of bilateral knees. CLINICAL INFORMATION: Status post total knee arthroplasty, post surgical followup. COMPARISON: X-ray left knee on 09/27/2023 TECHNIQUE: Upright Frontal, lateral and sunrise view X-rays of Left knee. Upright x-rays of bilateral knees. FINDINGS: BONES: Bony structures are intact. There is no focal bone destruction or periosteal reaction seen. JOINTS: There is normal alignment of bilateral total knee arthroplasty prostheses with patellar resurfacing. SOFT TISSUE: Left suprapatellar fat pad shows bulging increase in density. No abnormal air collection is seen. XR/XR knee standing BI IMPRESSION: 1. Normal alignment of bilateral total knee arthroplasty prostheses with patellar resurfacing. 2. Persistent left knee effusion. Interval removal of left knee surgical skin rose.
--- NOTE | ~2023-12-23 | XR_ITS ---
EXAMINATION: Left knee x-ray. Standing x-ray of bilateral knees. CLINICAL INFORMATION: Status post total knee arthroplasty, post surgical followup. COMPARISON: X-ray left knee on 09/27/2023 TECHNIQUE: Upright Frontal, lateral and sunrise view X-rays of Left knee. Upright x-rays of bilateral knees. FINDINGS: BONES: Bony structures are intact. There is no focal bone destruction or periosteal reaction seen. JOINTS: There is normal alignment of bilateral total knee arthroplasty prostheses with patellar resurfacing. SOFT TISSUE: Left suprapatellar fat pad shows bulging increase in density. No abnormal air collection is seen. XR/XR knee LT 2V IMPRESSION: 1. Normal alignment of bilateral total knee arthroplasty prostheses with patellar resurfacing. 2. Persistent left knee effusion. Interval removal of left knee surgical skin rose.
== END 2023-12-23 10:51 | disposition home or self-care (01) ==
LOC: HO.HOSX 10:50
PROVIDERS: Visit Provider Orthopaedic Surgery
DX: M25.562 Pain in left knee (principal); Z47.1 Aftercare following joint replacement surgery; Z96.652 Presence of left artificial knee joint
CPT/HCPCS: 73560; 73565; 99212

== ENCOUNTER 2023-12-23 11:01 | Outpatient (AMB) | payer MEDICARE, MEDICAID, SELFPAY ==
--- NOTE | 2023-12-23 11:14 | A.OFFVIS_ITS ---
Intake Intake Visit Reasons: OV-left TKA 09/27/23 NE-follow up Intake Note: Aaliyah is a 58 year old female who presents today for a post operative appointment s/p Left TKA 09/27/23. Patient reports that she is having continues pain of the knee, she has taken multiple falls. Painand tenderness is felt on the medial and lateral aspect of the knee. Allergies effexor Allergy (Severe, Verified 11/16/23 10:23) shortness of breath escitalopram Allergy (Mild, Verified 11/16/23 10:23) rash Seasonal Allergies Allergy (Mild, Verified 11/16/23 10:23) rhinitis, watery eyes tramadol [TRAMADOL] Adverse Reaction (Intermediate, Verified 11/16/23 10:23) NAUSEA paroxetine [From PAXIL] Adverse Reaction (Mild, Verified 11/16/23 10:23) AGITATION HPI OV-left TKA 09/27/23 NE-follow up HPI Details Aaliyah is a 58 year old woman who returns ~3 months S/P left TKA. She complains of continued pain with daily activity. She localizes her pain to the medial & lateral aspect of her knee. She also complains of weakness and says she has fallen several times since her surgery. [facility] Medical History Osteoarthritis of left knee Emphysema/COPD Hyperplastic colon polyp (~2018) Hyperlipemia History of supraventricular tachycardia Nicotine dependence, cigarettes, uncomplicated HTN (hypertension) Hypothyroid Arthropathy of right knee Spinal cord stimulator dysfunction Right elbow tendonitis Surgical History History of total left knee replacement History of Achilles tendon repair History of cardiac cath History of cardiac radiofrequency ablation S/P insertion of spinal cord stimulator History of colonoscopy History of right salpingo-oophorectomy History of tubal ligation History of left knee surgery History of total right knee replacement History of revision of total replacement of right knee joint History of back surgery Family History Father No problems noted. Mother Diabetes Mental health disorder Sister Mental health disorder Social History Household Members: Spouse and Family Household Members Other:: Mother Housing: Apartment Are you a primary home visit field care manager to a significant other at home: Yes (home visit field care manager for mother, and daughter to assist post-op) Do you presently have visiting nurse or other home services: No Patient Tobacco Use Status: Current everyday Tobacco user Tobacco use type: Cigarette Cigarettes Per Day: 6 Years Smoked: 43 e-Cigarette/Vaping Use: Currently Using Second Hand Smoke Exposure: No service: No Current occupational status: unemployed Current occupational exposures/hazards: No Cognitive needs: No Hearing needs: No Vision needs: No Review of Systems Const All systems reviewed & are unremarkable except as noted in HPI and below Physical Exam Const General: no acute distress, alert and awake Orientation/consciousness: patient oriented x3 HEENT Head: Yes normocephalic and Yes atraumatic Eyes EOM: EOMs intact bilaterally Resp Effort & Inspection: normal respiratory effort and able to speak in complete sentences Cardio Jugular venous distension: no JVD Skin General skin exam: turgor normal Rashes: no rashes Neuro General: patient oriented x3 Extrem Other: inc c/d/i mild effusion quad intact 0-120 deg stable arc of motion Psych Appearance: grossly normal Affect: normal affect Attitude: cooperative Results Reviewed Results Reviewed: Left total knee arthroplasty in expected post operative position with no hardware complications or evidence of loosening Assessment & Plan Assessment & Plan (1) Status post total left knee replacement: Code(s): Z96.652 - Presence of left artificial knee joint Plan: Improving but with effusion that is less than prior but still limiting quad strength NSAIDs, ICE and strengthening. f/u 3 mo Plan Prepared for Lizandro Schwartz MD by Sachin Lopez, medical safety director, on 12/23/23 at 11:23 AM, EST. Orders: Orders XR knee standing BI 12/23/23 M25.569 - Pain in unspecified knee XR knee LT 2V 12/23/23 M25.569 - Pain in unspecified knee Medications: New ibuprofen 600 mg PO Q8H 30 days PRN 90 tabs 0RF pain Coding Level of Care Code Global (39081) Diagnoses Status post total left knee replacement Z96.652
== END 2023-12-23 11:29 | disposition home or self-care (01) ==
PROVIDERS: PCP Nurse Practitioner Family; Visit Provider Orthopaedic Surgery
DX: Z96.652 Presence of left artificial knee joint (principal)
CPT/HCPCS: 99024

== ENCOUNTER 2024-01-11 10:00 | Outpatient (AMB) | payer MEDICARE, MEDICAID, SELFPAY ==
--- NOTE | 2024-01-11 10:08 | MHC.AM.SUB ---
Intake Vital Signs 01/11/24 10:11 BP 126/74 Blood Pressure Location Lt radial Position Sitting Pulse 95 Pulse Source Pulse Oximeter Pulse Oximetry (%) 95 Oxygen Delivery Method Room Air Intake Visit Reasons: MAT Visit Intake Note: the patient presents for a mat visit Business Area Manager Required: No Allergies effexor Allergy (Severe, Verified 01/11/24 10:23) shortness of breath escitalopram Allergy (Mild, Verified 01/11/24 10:23) rash Seasonal Allergies Allergy (Mild, Verified 01/11/24 10:23) rhinitis, watery eyes tramadol [TRAMADOL] Adverse Reaction (Intermediate, Verified 01/11/24 10:23) NAUSEA paroxetine [From PAXIL] Adverse Reaction (Mild, Verified 01/11/24 10:23) AGITATION Do you need a note to return to daycare/school/sports/work: No HPI MAT Visit HPI Details Patient presents for MAT visit She reports she has been feeling overwhelmed taking care of her mother who has dementia. Denies any recovery concerns at this time Tolerating suboxone 8mg tid well [facility] Medical History Osteoarthritis of left knee Emphysema/COPD Hyperplastic colon polyp (~2018) Hyperlipemia History of supraventricular tachycardia Nicotine dependence, cigarettes, uncomplicated HTN (hypertension) Hypothyroid Arthropathy of right knee Spinal cord stimulator dysfunction Right elbow tendonitis Surgical History History of total left knee replacement History of Achilles tendon repair History of cardiac cath History of cardiac radiofrequency ablation S/P insertion of spinal cord stimulator History of colonoscopy History of right salpingo-oophorectomy History of tubal ligation History of left knee surgery History of total right knee replacement History of revision of total replacement of right knee joint History of back surgery Family History Father No problems noted. Mother Diabetes Mental health disorder Sister Mental health disorder Social History Household Members: Spouse and Family Household Members Other:: Mother Housing: Apartment Are you a primary day care director to a significant other at home: Yes (day care director for mother, and daughter to assist post-op) Do you presently have visiting nurse or other home services: No Patient Tobacco Use Status: Current everyday Tobacco user Tobacco use type: Cigarette Cigarettes Per Day: 6 Years Smoked: 43 e-Cigarette/Vaping Use: Currently Using Second Hand Smoke Exposure: No service: No Current occupational status: unemployed Current occupational exposures/hazards: No Cognitive needs: No Hearing needs: No Vision needs: No Review of Systems Const Reports as per HPI Physical Exam Vital Signs: Last Vital Signs Pulse 95 01/11/24 10:11 BP 126/74 01/11/24 10:11 Pulse Ox 95 01/11/24 10:11 Oxygen Delivery Method Room Air 01/11/24 10:11 Const General: cooperative and no acute distress Resp Effort & Inspection: normal respiratory effort Psych Appearance: grossly normal Mental Status: mental status grossly normal Speech and movement: Normal speech and movement present Affect: normal affect Assessment & Plan Assessment & Plan (1) Opioid use disorder, moderate, in sustained remission: Code(s): F11.21 - Opioid dependence, in remission Plan: -Mass pat reviewed -Continue suboxone at current dose -Follow up 8 weeks -Encouraged to call [facility] if she has questions or concerns Medications: Refilled buprenorphine-naloxone 8-2 mg (Suboxone) 1 film sublingual TID 90 ea 1RF Coding Level of Care Code Est Pt Level 3 (87405) Diagnoses Opioid use disorder, moderate, in sustained remission F11.21
[2024-01-11 10:11] VITALS: BP 126/74; PULSE 95; O2SAT 95
== END 2024-01-11 10:49 | disposition home or self-care (01) ==
PROVIDERS: PCP Nurse Practitioner Family; Visit Provider Nurse Practitioner Family
DX: F11.21 Opioid dependence, in remission (principal)
CPT/HCPCS: 99213

== ENCOUNTER → 2024-01-11 10:00 | Outpatient (BNVA) | payer MEDICARE, MEDICAID, SELFPAY | PROVIDERS: PCP Nurse Practitioner Family; Visit Provider Nurse Practitioner Family | DX: Z51.81 Encounter for therapeutic drug level monitoring (principal); F11.21 Opioid dependence, in remission | CPT/HCPCS: 99212 ==

== ENCOUNTER 2024-02-03 10:28 | Outpatient (AMB) | payer MEDICARE, MEDICAID, SELFPAY ==
--- NOTE | 2024-02-03 10:29 | MHC.OFFVIS ---
Intake Vital Signs 02/03/24 10:31 Height 5 ft 7 in Weight 200 lb BMI 31.3 Intake Visit Reasons: OV-left TKA 09/27/23 NE Intake Note: Aaliyah is a 58 year old female who presents today for a follow up appointment s/p Left TKA 09/27/23. Has taken multiple falls since surgery, small effusion that is limiting quad strength. Patient reports that she is doing well, she is having some mild pain. Swelling increses with increased activity. She does take ibuprofen that was prescibed which does help mildly with her pain. Allergies effexor Allergy (Severe, Verified 02/03/24 10:33) shortness of breath escitalopram Allergy (Mild, Verified 02/03/24 10:33) rash Seasonal Allergies Allergy (Mild, Verified 02/03/24 10:33) rhinitis, watery eyes tramadol [TRAMADOL] Adverse Reaction (Intermediate, Verified 02/03/24 10:33) NAUSEA paroxetine [From PAXIL] Adverse Reaction (Mild, Verified 02/03/24 10:33) AGITATION HPI OV-left TKA 09/27/23 NE HPI Details Aaliyah is a 58 year old female who presents today for a follow up appointment s/p Left TKA 09/27/23. Has taken multiple falls since surgery, small effusion that is limiting quad strength. Patient reports that she is doing well, she is having some mild pain. Swelling increases with increased activity. She does take ibuprofen that was prescribed which does help mildly with her pain. [facility] Medical History Osteoarthritis of left knee Emphysema/COPD Hyperplastic colon polyp (~2018) Hyperlipemia History of supraventricular tachycardia Nicotine dependence, cigarettes, uncomplicated HTN (hypertension) Hypothyroid Arthropathy of right knee Spinal cord stimulator dysfunction Right elbow tendonitis Surgical History History of total left knee replacement History of Achilles tendon repair History of cardiac cath History of cardiac radiofrequency ablation S/P insertion of spinal cord stimulator History of colonoscopy History of right salpingo-oophorectomy History of tubal ligation History of left knee surgery History of total right knee replacement History of revision of total replacement of right knee joint History of back surgery Family History Father No problems noted. Mother Diabetes Mental health disorder Sister Mental health disorder Social History Household Members: Spouse and Family Household Members Other:: Mother Housing: Apartment Are you a primary medicare compliance auditor to a significant other at home: Yes (medicare compliance auditor for mother, and daughter to assist post-op) Do you presently have visiting nurse or other home services: No Patient Tobacco Use Status: Current everyday Tobacco user Tobacco use type: Cigarette Cigarettes Per Day: 6 Years Smoked: 43 e-Cigarette/Vaping Use: Currently Using Second Hand Smoke Exposure: No service: No Current occupational status: unemployed Current occupational exposures/hazards: No Cognitive needs: No Hearing needs: No Vision needs: No Physical Exam Vital Signs: BMI result Body Mass Index 31.3 Extrem Other: 0-130 mild effusion incision healed no pain stable to valgus stress mild ttp over anteromedial tibia Assessment & Plan Assessment & Plan (1) Status post total left knee replacement: Code(s): Z96.652 - Presence of left artificial knee joint Plan: She is continuing to improve, albeit slowly. Continue strengthening and activity as tolerated. Coding Level of Care Code Est Pt Level 3 (14411) Diagnoses Status post total left knee replacement Z96.652
[2024-02-03 10:31] VITALS: BMI 31.3
== END 2024-02-03 10:38 | disposition home or self-care (01) ==
PROVIDERS: PCP Nurse Practitioner Family; Visit Provider Orthopaedic Surgery
DX: Z47.1 Aftercare following joint replacement surgery (principal); Z96.652 Presence of left artificial knee joint
CPT/HCPCS: 99213

== ENCOUNTER → 2024-02-03 10:28 | Outpatient (BNVA) | payer MEDICARE, MEDICAID, SELFPAY | PROVIDERS: PCP Nurse Practitioner Family; Visit Provider Orthopaedic Surgery | DX: M25.462 Effusion, left knee (principal); Z96.652 Presence of left artificial knee joint; Z91.81 History of falling | CPT/HCPCS: 99212 ==

== ENCOUNTER 2024-03-06 10:20 | Outpatient (AMB) | payer MEDICARE, MEDICAID, SELFPAY ==
--- NOTE | 2024-03-06 10:22 | A.OFFVISCC_ITS ---
Vital Signs 03/06/24 10:30 BP 100/60 Blood Pressure Location Rt radial Position Sitting Respiration 19 Pulse 74 Pulse Source Pulse Oximeter Pulse Oximetry (%) 96 Intake Visit Reasons: MAT Allergies effexor Allergy (Severe, Verified 02/03/24 10:33) shortness of breath escitalopram Allergy (Mild, Verified 02/03/24 10:33) rash Seasonal Allergies Allergy (Mild, Verified 02/03/24 10:33) rhinitis, watery eyes tramadol [TRAMADOL] Adverse Reaction (Intermediate, Verified 02/03/24 10:33) NAUSEA paroxetine [From PAXIL] Adverse Reaction (Mild, Verified 02/03/24 10:33) AGITATION HPI HPI MAT: Details: Patient presents for MAT visit SHe reports things have been status quo She has found someone to assist occasionally with her mother so she can go out and grocery shop Is thinking about going on a cruise in October Has no concerns for recovery today Tolerating suboxone 8mg TID well, no cravings or withdrawal symptoms HPI Comments Details: Patient presents for MAT visit [facility] Medical History Osteoarthritis of left knee Emphysema/COPD Hyperplastic colon polyp (~2018) Hyperlipemia History of supraventricular tachycardia Nicotine dependence, cigarettes, uncomplicated HTN (hypertension) Hypothyroid Arthropathy of right knee Spinal cord stimulator dysfunction Right elbow tendonitis Surgical History History of total left knee replacement History of Achilles tendon repair History of cardiac cath History of cardiac radiofrequency ablation S/P insertion of spinal cord stimulator History of colonoscopy History of right salpingo-oophorectomy History of tubal ligation History of left knee surgery History of total right knee replacement History of revision of total replacement of right knee joint History of back surgery Family History Father No problems noted. Mother Diabetes Mental health disorder Sister Mental health disorder Social History Household Members: Spouse and Family Household Members Other:: Mother Housing: Apartment Are you a primary health care facilities inspector to a significant other at home: Yes (health care facilities inspector for mother, and daughter to assist post-op) Do you presently have visiting nurse or other home services: No Patient Tobacco Use Status: Current everyday Tobacco user Tobacco use type: Cigarette Cigarettes Per Day: 6 Years Smoked: 43 e-Cigarette/Vaping Use: Currently Using Second Hand Smoke Exposure: No service: No Current occupational status: unemployed Current occupational exposures/hazards: No Cognitive needs: No Hearing needs: No Vision needs: No Review of Systems Const Reports as per HPI Physical Exam Vital Signs: Last Vital Signs Pulse 74 03/06/24 10:30 Resp 19 03/06/24 10:30 BP 100/60 03/06/24 10:30 Pulse Ox 96 03/06/24 10:30 Const General: cooperative and no acute distress Resp Effort & Inspection: normal respiratory effort and able to speak in complete sentences Psych Appearance: grossly normal Mental Status: mental status grossly normal Speech and movement: Normal speech and movement present Affect: normal affect Attitude: cooperative Thought process: Normal thought process present Assessment & Plan Assessment & Plan (1) Opioid use disorder, moderate, in sustained remission: Code(s): F11.21 - Opioid dependence, in remission Category: Medical Plan: -RACHEL malin reviewed -Suboxone refilled -Follow up 8 weeks Medications: Refilled buprenorphine-naloxone 8-2 mg (Suboxone) 1 film sublingual TID 90 ea 1RF
[2024-03-06 10:30] VITALS: BP 100/60; PULSE 74; RESP 19; O2SAT 96
== END 2024-03-06 10:59 | disposition home or self-care (01) ==
PROVIDERS: PCP Nurse Practitioner Family; Visit Provider Nurse Practitioner Family
DX: F11.21 Opioid dependence, in remission (principal)
CPT/HCPCS: 99213

== ENCOUNTER → 2024-03-06 10:20 | Outpatient (BNVA) | payer MEDICARE, MEDICAID, SELFPAY | PROVIDERS: PCP Nurse Practitioner Family; Visit Provider Nurse Practitioner Family | DX: F11.21 Opioid dependence, in remission (principal) | CPT/HCPCS: 99212 ==

== ENCOUNTER 2024-05-02 10:29 | Outpatient (AMB) | payer MEDICARE, MEDICAID, SELFPAY ==
[2024-05-02 10:36] VITALS: BP 160/80; PULSE 88; O2SAT 98
--- NOTE | 2024-05-02 10:36 | A.OFFVISCC_ITS ---
Vital Signs 05/02/24 10:36 BP 160/80 H Blood Pressure Location Lt brachial Position Sitting Pulse 88 Pulse Source Pulse Oximeter Pulse Oximetry (%) 98 Oxygen Delivery Method Room Air Intake Visit Reasons: MAT Allergies effexor Allergy (Severe, Verified 02/03/24 10:33) shortness of breath escitalopram Allergy (Mild, Verified 02/03/24 10:33) rash Seasonal Allergies Allergy (Mild, Verified 02/03/24 10:33) rhinitis, watery eyes tramadol [TRAMADOL] Adverse Reaction (Intermediate, Verified 02/03/24 10:33) NAUSEA paroxetine [From PAXIL] Adverse Reaction (Mild, Verified 02/03/24 10:33) AGITATION HPI HPI MAT: Details: Patient presents for MAT appointment Has no concerns for recovery today States she is continuing to take care of her mother who has dementia, and this places strain on her She expressed she has been unable to go on vacation with her family due to the commitment of taking care of her mother HPI Comments Details: Patient presents for MAT visit [facility] Medical History Osteoarthritis of left knee Emphysema/COPD Hyperplastic colon polyp (~2018) Hyperlipemia History of supraventricular tachycardia Nicotine dependence, cigarettes, uncomplicated HTN (hypertension) Hypothyroid Arthropathy of right knee Spinal cord stimulator dysfunction Right elbow tendonitis Surgical History History of total left knee replacement History of Achilles tendon repair History of cardiac cath History of cardiac radiofrequency ablation S/P insertion of spinal cord stimulator History of colonoscopy History of right salpingo-oophorectomy History of tubal ligation History of left knee surgery History of total right knee replacement History of revision of total replacement of right knee joint History of back surgery Family History Father No problems noted. Mother Diabetes Mental health disorder Sister Mental health disorder Social History Household Members: Spouse and Family Household Members Other:: Mother Housing: Apartment Are you a primary hospice patient care secretary to a significant other at home: Yes (hospice patient care secretary for mother, and daughter to assist post-op) Do you presently have visiting nurse or other home services: No Patient Tobacco Use Status: Current everyday Tobacco user Tobacco use type: Cigarette Cigarettes Per Day: 6 Years Smoked: 43 e-Cigarette/Vaping Use: Currently Using Second Hand Smoke Exposure: No service: No Current occupational status: unemployed Current occupational exposures/hazards: No Cognitive needs: No Hearing needs: No Vision needs: No Review of Systems Const Reports as per HPI Physical Exam Vital Signs: Last Vital Signs Pulse 88 05/02/24 10:36 BP 160/80 H 05/02/24 10:36 Pulse Ox 98 05/02/24 10:36 Oxygen Delivery Method Room Air 05/02/24 10:36 Const General: cooperative and no acute distress Resp Effort & Inspection: normal respiratory effort and able to speak in complete sentences Psych Appearance: grossly normal Mental Status: mental status grossly normal Speech and movement: Normal speech and movement present Affect: normal affect Attitude: cooperative Thought process: Normal thought process present Assessment & Plan Assessment & Plan (1) Opioid use disorder, moderate, in sustained remission: Code(s): F11.21 - Opioid dependence, in remission Category: Medical Plan: -RACHEL malin reviewed -Provided patient with information for caregiver respite -Suboxone refilled -Follow up 8 weeks Medications: New buprenorphine-naloxone 8-2 mg 1 film buccal TID 90 ea 1RF
== END 2024-05-02 11:01 | disposition home or self-care (01) ==
PROVIDERS: PCP Nurse Practitioner Family; Visit Provider Nurse Practitioner Family
DX: F11.21 Opioid dependence, in remission (principal)
CPT/HCPCS: 99213

== ENCOUNTER → 2024-05-02 10:29 | Outpatient (BNVA) | payer MEDICARE, MEDICAID, SELFPAY | PROVIDERS: PCP Nurse Practitioner Family; Visit Provider Nurse Practitioner Family | DX: F11.21 Opioid dependence, in remission (principal) | CPT/HCPCS: 99212 ==

== ENCOUNTER 2024-05-30 09:56 | Outpatient (REF) | payer MEDICARE, MEDICAID, SELFPAY ==
--- NOTE | ~2024-05-30 | CT_ITS ---
EXAMINATION: CT LOW-DOSE SCREENING CHEST WITHOUT CONTRAST CLINICAL INFORMATION: History of nicotine dependence, cigarettes, uncomplicated. Current smoker, 44 pack-years, 96 kg. COMPARISON: Low-dose screening chest CT 05/13/2023. TECHNIQUE: Multidetector volumetric CT imaging of the chest is performed on a Siemens SOMATOM Definition scanner without contrast using low dose technique. Additional 2D coronal and sagittal reformatted images and axial 3D maximum intensity projection (MIP) images are generated on the CT workstation. This CT examination was performed using dose optimization techniques as appropriate, variously including the following: *Automated exposure control *Adjustment of mA and/or kV according to patient size (this includes techniques or standardized protocols for targeted exams where dose is matched to indication/reason for exam; i.e. extremities or head) *Use of iterative reconstruction technique TOTAL EXAM DLP: 61 mGy-cm. FINDINGS: PULMONARY NODULES: -A few scattered 2-3 mm nodules are unchanged in both lungs, some which are calcified. -4 mm nodule posterior left upper lobe near the apex is unchanged (series 5, image 60). -4 mm groundglass nodule posterior right middle lobe is new (series 5, image 316). No solid component. -No additional new or enlarging nodules. LUNGS: -There is mild to moderate centrilobular and paraseptal emphysema with upper lobe predominance. There are a few biapical subpleural blebs. -There are centrilobular groundglass nodules clustered in the superior right upper lobe, and superolateral left apex, highly suggestive of inflammatory/infectious etiology. This was not present on the prior exam. -There are no consolidations or large groundglass opacities. No interstitial lung disease. -Mild thickening of the small airways is noted, consistent with bronchitis. The trachea and central airways are patent. MEDIASTINUM: -Aorta is mild to moderately calcified but normal in caliber. There is no aneurysm. -Main pulmonary artery is visually slightly prominent but normal in measurement. -No abnormal lymphadenopathy is present in the mediastinum or hilum. -Esophagus appears mildly thickened in its inferior one half, possibly representing esophagitis. There is a probable small type I hiatus hernia. -Heart size is normal. No pericardial effusion. CORONARY ARTERY CALCIFICATION: Minimal circumflex, RCA, and LAD calcification. THYROID GLAND: Partially unchanged, normal. CHEST WALL/AXILLA: No masses or abnormal lymph nodes. UPPER ABDOMEN: -1.5 cm segment 2 liver cyst is present. -There is a 9 mm medial segment 5/8 cyst. -Remainder of the upper abdominal structures appear normal allowing for low dose technique. OSSEOUS STRUCTURES: No suspicious lytic or blastic bone lesions. -Spinal stimulator leads terminate in the dorsal epidural space spanning T8-T9. -Mild degenerative spinal changes are present. CT/CT lung screening IMPRESSION: 1. Stable scattered pulmonary nodules measuring up to 4 mm in the left posterior apex. No new suspicious nodules or enlarging nodules are evident. 2. Vsdg-xm-mroysxpt paraseptal and centrilobular emphysema with upper lobe predominance. 3. Grouped centrilobular groundglass nodules in both upper lobes, upper aspects, in keeping with inflammatory/infectious etiology. These were not present previously. Would correlate with clinical signs and symptoms. 4. Mild thickening of the small airways suggesting chronic bronchitis. 5. Spinal stimulator in place terminating in the dorsal epidural space at T8-T9. 6. Mild thickening of the distal esophagus with a small type I hiatus hernia suspected. 7. Additional ancillary findings as discussed in the body of the report. ASSESSMENT: 1. Lung-RADS Category 2: Benign appearance or behavior of nodules. 2. Lung-RADS Category S: None. RECOMMENDATION: Continued routine annual low-dose CT lung screening in 1 year is recommended. An order for CT CHEST LOW DOSE CANCER SCREENING ([id number]) can be placed. Electronically signed by: Zafar Javier MD 07/10/2024 11:15 AM EDT
== END 2024-05-30 09:57 | disposition home or self-care (01) ==
LOC: HO.CT 09:56
PROVIDERS: Visit Provider Physician Assistant Medical
DX: Z12.2 Encounter for screening for malignant neoplasm of respiratory organs (principal); F17.210 Nicotine dependence, cigarettes, uncomplicated
CPT/HCPCS: 71271

== ENCOUNTER → 2024-05-30 09:59 | Outpatient (BNV) | payer MEDICARE, MEDICAID, SELFPAY | PROVIDERS: Visit Provider Radiology Diagnostic Radiology | DX: Z12.2 Encounter for screening for malignant neoplasm of respiratory organs (principal); F17.210 Nicotine dependence, cigarettes, uncomplicated | CPT/HCPCS: 71271 ==

== ENCOUNTER 2024-06-27 10:42 | Outpatient (AMB) | payer MEDICARE, MEDICAID, SELFPAY ==
--- NOTE | 2024-06-27 11:00 | MHC.AM.SUB ---
Intake Visit Reasons: MAT Allergies effexor Allergy (Severe, Verified 02/03/24 10:33) shortness of breath escitalopram Allergy (Mild, Verified 02/03/24 10:33) rash Seasonal Allergies Allergy (Mild, Verified 02/03/24 10:33) rhinitis, watery eyes tramadol [TRAMADOL] Adverse Reaction (Intermediate, Verified 02/03/24 10:33) NAUSEA paroxetine [From PAXIL] Adverse Reaction (Mild, Verified 02/03/24 10:33) AGITATION HPI HPI MAT: Details: Patient presents for follow up Seeing therapist every 2 weeks caregiver stress increasing cravings--more for alcohol PFSH Medical History Osteoarthritis of left knee Emphysema/COPD Hyperplastic colon polyp (~2018) Hyperlipemia History of supraventricular tachycardia Nicotine dependence, cigarettes, uncomplicated HTN (hypertension) Hypothyroid Arthropathy of right knee Spinal cord stimulator dysfunction Right elbow tendonitis Surgical History History of total left knee replacement History of Achilles tendon repair History of cardiac cath History of cardiac radiofrequency ablation S/P insertion of spinal cord stimulator History of colonoscopy History of right salpingo-oophorectomy History of tubal ligation History of left knee surgery History of total right knee replacement History of revision of total replacement of right knee joint History of back surgery Family History Father No problems noted. Mother Diabetes Mental health disorder Sister Mental health disorder Social History Household Members: Spouse and Family Household Members Other:: Mother Housing: Apartment Are you a primary critical care unit nurse to a significant other at home: Yes (critical care unit nurse for mother, and daughter to assist post-op) Do you presently have visiting nurse or other home services: No Patient Tobacco Use Status: Current everyday Tobacco user Tobacco use type: Cigarette Cigarettes Per Day: 6 Years Smoked: 43 e-Cigarette/Vaping Use: Currently Using Second Hand Smoke Exposure: No service: No Current occupational status: unemployed Current occupational exposures/hazards: No Cognitive needs: No Hearing needs: No Vision needs: No Review of Systems Const Reports as per HPI Physical Exam Const General: cooperative, anxious and tired appearing Nutritional Appearance: overweight Orientation/consciousness: patient oriented x3 Limitations: no limitations Neuro General: patient oriented x3 Assessment & Plan Assessment & Plan (1) Opioid use disorder, moderate, in sustained remission: Code(s): F11.21 - Opioid dependence, in remission Category: Medical Plan: relapse prevention discussion provided resources on day programs for mother follow up 2 months Medications: Refilled buprenorphine-naloxone 8-2 mg 1 film buccal TID 90 ea 1RF Discontinued buprenorphine-naloxone 8-2 mg (Suboxone) Discontinued Reason: Duplicate 1 film sublingual TID 90 ea 1RF
== END 2024-06-27 11:32 | disposition home or self-care (01) ==
PROVIDERS: PCP Nurse Practitioner Family; Visit Provider Nurse Practitioner Psychiatric/Mental Health
DX: F11.21 Opioid dependence, in remission (principal)
CPT/HCPCS: 99214

== ENCOUNTER → 2024-06-27 10:42 | Outpatient (BNVA) | payer MEDICARE, MEDICAID, SELFPAY | PROVIDERS: PCP Nurse Practitioner Family; Visit Provider Nurse Practitioner Psychiatric/Mental Health | DX: F11.21 Opioid dependence, in remission (principal) | CPT/HCPCS: 99212 ==

== ENCOUNTER 2024-07-30 10:33 | Outpatient (AMB) | payer MEDICARE, MEDICAID, SELFPAY ==
--- NOTE | 2024-07-30 10:35 | MHC.OFFVIS ---
Vital Signs 07/30/24 10:36 Height 5 ft 7 in Weight 200 lb BMI 31.3 Intake Visit Reasons: OV- Left knee pain TKA 09/27/23 NE Intake Note: Aaliyah is a 58 year old female who presents today for a follow up visit s/p Left TKA DOS: 09/27/2023. Patient stats that she is having left knee after she fell two times last month. Patient states she takes Ibuprofen and elevates her knee for relief. Allergies effexor Allergy (Severe, Verified 07/30/24 12:32) shortness of breath escitalopram Allergy (Mild, Verified 07/30/24 12:32) rash Seasonal Allergies Allergy (Mild, Verified 07/30/24 12:32) rhinitis, watery eyes tramadol [TRAMADOL] Adverse Reaction (Intermediate, Verified 07/30/24 12:32) NAUSEA paroxetine [From PAXIL] Adverse Reaction (Mild, Verified 07/30/24 12:32) AGITATION HPI HPI OV- Left knee pain TKA 09/27/23 NE: Details: Aaliyah is a 58 year old female who presents today for a follow up visit s/p Left TKA DOS: 09/27/2023. Patient stats that she is having extreme left knee after she fell two times last month. Patient states she takes Ibuprofen and elevates her knee for relief. [facility] Medical History Osteoarthritis of left knee Emphysema/COPD Hyperplastic colon polyp (~2018) Hyperlipemia History of supraventricular tachycardia Nicotine dependence, cigarettes, uncomplicated HTN (hypertension) Hypothyroid Arthropathy of right knee Spinal cord stimulator dysfunction Right elbow tendonitis Surgical History History of total left knee replacement History of Achilles tendon repair History of cardiac cath History of cardiac radiofrequency ablation S/P insertion of spinal cord stimulator History of colonoscopy History of right salpingo-oophorectomy History of tubal ligation History of left knee surgery History of total right knee replacement History of revision of total replacement of right knee joint History of back surgery Family History Father No problems noted. Mother Diabetes Mental health disorder Sister Mental health disorder Social History Household Members: Spouse and Family Household Members Other:: Mother Housing: Apartment Are you a primary district manager primary care sales to a significant other at home: Yes (district manager primary care sales for mother, and daughter to assist post-op) Do you presently have visiting nurse or other home services: No Patient Tobacco Use Status: Current everyday Tobacco user Tobacco use type: Cigarette Cigarettes Per Day: 6 Years Smoked: 43 e-Cigarette/Vaping Use: Currently Using Second Hand Smoke Exposure: No service: No Current occupational status: unemployed Current occupational exposures/hazards: No Cognitive needs: No Hearing needs: No Vision needs: No Physical Exam Vital Signs: BMI result Body Mass Index 31.3 Extrem Other: Well-healed incision left knee. She is walking comfortably. She has mild tenderness to palpation over the medial tibial plateau. Her motion is unchanged from prior and she is walking okay. Assessment & Plan Assessment & Plan (1) Status post total left knee replacement: Code(s): Z96.652 - Presence of left artificial knee joint Category: Surgical Plan: Aaliyah complaints of knee pain but her exam is pretty benign. I did order x-rays and would like her to get those. We will follow up as a telehealth appointment. In the meantime I gave her a knee sleeve which hopefully will help with some of the occasional discomfort. Orders: Orders XR knee RT 3V 07/30/24 M25.561 - Pain in right knee XR knee LT 3V 07/30/24 M25.562 - Pain in left knee Coding Level of Care Code Est Pt Level 3 (52974) Diagnoses Status post total left knee replacement Z96.652
[2024-07-30 10:36] VITALS: BMI 31.3
== END 2024-07-30 11:20 | disposition home or self-care (01) ==
PROVIDERS: PCP Nurse Practitioner Family; Visit Provider Orthopaedic Surgery
DX: Z47.89 Encounter for other orthopedic aftercare (principal); Z96.652 Presence of left artificial knee joint
CPT/HCPCS: 99213

== ENCOUNTER 2024-07-30 10:33 | Outpatient (REF) | payer MEDICARE, MEDICAID, SELFPAY | END 2024-07-30 10:34 | disposition home or self-care (01) | LOC: HO.LAB 10:33 | PROVIDERS: PCP Nurse Practitioner Family; Visit Provider Orthopaedic Surgery | DX: Z13.89 Encounter for screening for other disorder (principal) | CPT/HCPCS: 99212 ==

== ENCOUNTER 2024-07-30 11:54 | Outpatient (AMB) | payer MEDICARE, MEDICAID, SELFPAY ==
[2024-07-30 12:22] VITALS: BP 120/74; PULSE 71; TEMP 36.8; O2SAT 91; BMI 35.5
--- NOTE | 2024-07-30 12:22 | AM.OFFWIN_ITS ---
Intake Vital Signs 07/30/24 12:22 Height 5 ft 7 in Weight 227 lb BMI 35.5 BP 120/74 Blood Pressure Location Rt brachial Position Sitting Pulse 71 Pulse Source Pulse Oximeter Temp 98.2 F Temp Source Oral Pulse Oximetry (%) 91 L Oxygen Delivery Method Room Air Intake Visit Reasons: EP Cough Intake Note: pt c/o non-productive cough. Started 3 weeks ago Patient Tobacco Use Status: Current everyday Tobacco user Allergies effexor Allergy (Severe, Verified 07/30/24 12:32) shortness of breath escitalopram Allergy (Mild, Verified 07/30/24 12:32) rash Seasonal Allergies Allergy (Mild, Verified 07/30/24 12:32) rhinitis, watery eyes tramadol [TRAMADOL] Adverse Reaction (Intermediate, Verified 07/30/24 12:32) NAUSEA paroxetine [From PAXIL] Adverse Reaction (Mild, Verified 07/30/24 12:32) AGITATION Do you need a note to return to daycare/school/sports/work: No HPI HPI Comments History of Present Illness Details Patient is a 59-year-old female who is a current smoker complaining of a cough for 2 and half weeks. She states that she can feel in the center of her chest. She also has some shortness of breath. She states she has been Mucinex but it does not seem to be helping. She denies a formal diagnosis of COPD. She states she takes care of her mother, who lives with her, she was also sick and just got a Z-Elmer and finally got over her cough PFS Medical History Osteoarthritis of left knee Emphysema/COPD Hyperplastic colon polyp (~2018) Hyperlipemia History of supraventricular tachycardia Nicotine dependence, cigarettes, uncomplicated HTN (hypertension) Hypothyroid Arthropathy of right knee Spinal cord stimulator dysfunction Right elbow tendonitis Surgical History History of total left knee replacement History of Achilles tendon repair History of cardiac cath History of cardiac radiofrequency ablation S/P insertion of spinal cord stimulator History of colonoscopy History of right salpingo-oophorectomy History of tubal ligation History of left knee surgery History of total right knee replacement History of revision of total replacement of right knee joint History of back surgery Family History Father No problems noted. Mother Diabetes Mental health disorder Sister Mental health disorder Social History Household Members: Spouse and Family Household Members Other:: Mother Housing: Apartment Are you a primary career technical education instructor to a significant other at home: Yes (career technical education instructor for mother, and daughter to assist post-op) Do you presently have visiting nurse or other home services: No Patient Tobacco Use Status: Current everyday Tobacco user Tobacco use type: Cigarette Cigarettes Per Day: 6 Years Smoked: 43 e-Cigarette/Vaping Use: Currently Using Second Hand Smoke Exposure: No service: No Current occupational status: unemployed Current occupational exposures/hazards: No Cognitive needs: No Hearing needs: No Vision needs: No Review of Systems Const All systems reviewed & are unremarkable except as noted in HPI and below Physical Exam Vital Signs: Last Vital Signs Temp 98.2 F 07/30/24 12:22 Pulse 71 07/30/24 12:22 BP 120/74 07/30/24 12:22 Pulse Ox 91 L 07/30/24 12:22 Oxygen Delivery Method Room Air 07/30/24 12:22 BMI result Body Mass Index 35.5 Const General: cooperative, healthy appearing, comfortable and no acute distress Orientation/consciousness: patient oriented x3 Limitations: no limitations HEENT Head: Yes normal to inspection Ears: hearing grossly normal bilaterally, external ears normal and TM's normal bilaterally General nose exam: Normal external nose present, Normal nares present and No nasal discharge present Face and sinus: Yes normal facial exam and Yes sinuses nontender Mouth: Normal oral and palatal mucosa present and moist mucous membranes Throat: Yes tonsils normal, Yes uvula midline and Yes posterior oropharynx abnormal (Erythema) Eyes General: appearance normal, both eyes and all related structures Neck Neck: Yes normal visual inspection Resp Effort & Inspection: normal respiratory effort, able to speak in complete sentences, Actively coughing, no respiratory distress, not tachypneic, no tripod positioning and no use of accessory muscles Auscultation: wheezes expiratory wheezes and throughout Cardio Rate: regular rate Rhythm: regular rhythm Heart sounds: normal S1 and S2 Skin General skin exam: no rashes or lesions noted Neuro General: patient oriented x3 Extrem General: Yes normal to inspection and Yes no clubbing, cyanosis or edema Assessment & Plan Assessment & Plan (1) SOB (shortness of breath): Code(s): R06.02 - Shortness of breath Plan: See below (2) Cough: Code(s): R05.9 - Cough, unspecified Qualifiers: Cough type: acute Qualified Code(s): R05.1 - Acute cough Plan: See below (3) URI (upper respiratory infection): Code(s): J06.9 - Acute upper respiratory infection, unspecified Qualifiers: URI type: unspecified URI Qualified Code(s): J06.9 - Acute upper respiratory infection, unspecified Plan: Vital signs are stable however patient had scattered expiratory wheezes throughout so I gave her 1 dose of prednisone in the office and sent the remainder of the burst to her pharmacy. Also got chest x-ray. If chest x-ray is negative for pneumonia, we will send a Z-Elmer for atypical pneumonia. Plan See above Orders: Orders SARS-CoV2/FLU/RSV 07/30/24 J06.9 - Acute upper respiratory infection, unspecified XR chest 2V 07/30/24 R05.9 - Cough, unspecified AMB Prednisone Adult Dose 07/30/24 J06.9 - Acute upper respiratory infection, unspecified, R05.9 - Cough, unspecified, R06.02 - Shortness of breath Medications: New prednisone 40 mg (2 x 20 mg) PO DAILY 8 tabs 0RF prednisone 20 mg PO ONCE 2 tabs 0RF wheezing J06.9 - Acute upper respiratory infection, unspecified, R05.9 - Cough, unspecified, R06.02 - Shortness of breath Coding Level of Care Code Est Pt Level 4 (88963) Diagnoses SOB (shortness of breath) R06.02 Acute cough R05.1 Cough type: acute Upper respiratory tract infection, unspecified type J06.9 URI type: unspecified URI
== END 2024-07-30 12:59 | disposition home or self-care (01) ==
PROVIDERS: PCP Nurse Practitioner Family; Visit Provider Physician Assistant
DX: R06.02 Shortness of breath (principal); R05.1 Acute cough; J06.9 Acute upper respiratory infection, unspecified

== ENCOUNTER 2024-07-30 12:55 | Outpatient (REF) | payer MEDICARE, MEDICAID, SELFPAY ==
--- NOTE | ~2024-07-30 | XR_ITS ---
EXAMINATION: XR CHEST, 2 VIEWS CLINICAL INFORMATION: Cough, unspecified. COMPARISON: 04/14/2023 TECHNIQUE: PA and lateral views of the chest were obtained. FINDINGS: Lungs are clear. No consolidation, pneumothorax, or pleural effusion. Cardiac and mediastinal contours are normal. Pulmonary vasculature is unremarkable. Trachea is midline. Spinal stimulator leads terminate in the mid thoracic spine, unchanged. No acute osseous findings. XR/XR chest 2V IMPRESSION: No acute pulmonary findings. Electronically signed by: Zafar Velazco MD 07/30/2024 02:25 PM EDT RP
[2024-07-30 17:04] LABS: Influenza A PCR NEGATIVE (Negative); Influenza B PCR NEGATIVE (Negative); Resp Syncy Virus RNA Qual PCR NEGATIVE (Negative); SARS COV2 PCR INHOUSE NEGATIVE (Negative)
== END 2024-07-30 12:56 | disposition home or self-care (01) ==
LOC: HO.HMGCX 12:55
PROVIDERS: PCP Nurse Practitioner Family; Visit Provider Physician Assistant
DX: R05.9 Cough, unspecified (principal); J06.9 Acute upper respiratory infection, unspecified; T84.84XA Pain due to internal orthopedic prosthetic devices, implants and grafts, initial encounter; Z96.652 Presence of left artificial knee joint
CPT/HCPCS: 0241U; 71046; 99212

== ENCOUNTER 2024-08-27 13:14 | Outpatient (REF) | payer MEDICARE, MEDICAID, SELFPAY ==
--- NOTE | ~2024-08-27 | XR_ITS ---
EXAMINATION: XR KNEE LEFT 5 VIEWS CLINICAL INFORMATION: Pain in left knee M25.562. Bilateral knee pain. COMPARISON: XR Left knee 12/23/2023 TECHNIQUE: 3 views of the left knee FINDINGS: There is a total knee arthroplasty in place. The components are in the usual position and are unchanged. There is no periprosthetic fracture or surrounding abnormal lucency. There is a small joint effusion unchanged The surrounding soft tissues are normal. XR/XR knee LT 3V IMPRESSION: Small joint effusion unchanged Electronically signed by: Gustavo Kiser MD 10/30/2024 09:08 AM CAL [facility]
--- NOTE | ~2024-08-27 | XR_ITS ---
EXAMINATION: XR KNEE RIGHT 4 VIEWS CLINICAL INFORMATION: Pain in right knee M25.561. Bilateral knee pain. COMPARISON: XR Bilateral knee 12/23/2023 TECHNIQUE: 3 views of the right knee. FINDINGS: There is a total knee arthroplasty in place. The components are in the usual position and are unchanged. There is no periprosthetic fracture or surrounding abnormal lucency. There is no effusion. The surrounding soft tissues are normal. XR/XR knee RT 3V IMPRESSION: Right total knee arthroplasty without complication by x-ray. Electronically signed by: Gustavo Kiser MD 10/30/2024 09:09 AM CAL
== END 2024-08-27 13:15 | disposition home or self-care (01) ==
LOC: HO.XRAY 13:14
PROVIDERS: PCP Nurse Practitioner Family; Visit Provider Orthopaedic Surgery
DX: M25.562 Pain in left knee (principal); M25.561 Pain in right knee
CPT/HCPCS: 73562

== ENCOUNTER 2024-09-05 11:03 | Outpatient (AMB) | payer MEDICARE, MEDICAID, SELFPAY ==
--- NOTE | 2024-09-05 11:07 | A.OFFVISCC_ITS ---
Intake Visit Reasons: MAT Allergies effexor Allergy (Severe, Verified 07/30/24 12:32) shortness of breath escitalopram Allergy (Mild, Verified 07/30/24 12:32) rash Seasonal Allergies Allergy (Mild, Verified 07/30/24 12:32) rhinitis, watery eyes tramadol [TRAMADOL] Adverse Reaction (Intermediate, Verified 07/30/24 12:32) NAUSEA paroxetine [From PAXIL] Adverse Reaction (Mild, Verified 07/30/24 12:32) AGITATION HPI HPI MAT: Details: Patient presents for folllow up Currently prescribed Suboxone 8mg TID Was on vacation for 2 weeks in [place] with her mother enjoyed herself stress with daughters, tearful during visit sharing some challenges denies any issues realted to recovery [facility] Medical History Osteoarthritis of left knee Emphysema/COPD Hyperplastic colon polyp (~2018) Hyperlipemia History of supraventricular tachycardia Nicotine dependence, cigarettes, uncomplicated HTN (hypertension) Hypothyroid Arthropathy of right knee Spinal cord stimulator dysfunction Right elbow tendonitis Surgical History History of total left knee replacement History of Achilles tendon repair History of cardiac cath History of cardiac radiofrequency ablation S/P insertion of spinal cord stimulator History of colonoscopy History of right salpingo-oophorectomy History of tubal ligation History of left knee surgery History of total right knee replacement History of revision of total replacement of right knee joint History of back surgery Family History Father No problems noted. Mother Diabetes Mental health disorder Sister Mental health disorder Social History Household Members: Spouse and Family Household Members Other:: Mother Housing: Apartment Are you a primary med care manager to a significant other at home: Yes (med care manager for mother, and daughter to assist post-op) Do you presently have visiting nurse or other home services: No Patient Tobacco Use Status: Current everyday Tobacco user Tobacco use type: Cigarette Cigarettes Per Day: 6 Years Smoked: 43 e-Cigarette/Vaping Use: Currently Using Second Hand Smoke Exposure: No service: No Current occupational status: unemployed Current occupational exposures/hazards: No Cognitive needs: No Hearing needs: No Vision needs: No Review of Systems Const Reports as per HPI Physical Exam Const General: cooperative, anxious and tired appearing Orientation/consciousness: patient oriented x3 Limitations: no limitations Neuro General: patient oriented x3 Assessment & Plan Assessment & Plan (1) Opioid use disorder, moderate, in sustained remission: Code(s): F11.21 - Opioid dependence, in remission Category: Medical Plan: * continue suboxone at current dose * follow up 2 months
== END 2024-09-05 11:46 | disposition home or self-care (01) ==
PROVIDERS: PCP Nurse Practitioner Family; Visit Provider Nurse Practitioner Psychiatric/Mental Health
DX: F11.21 Opioid dependence, in remission (principal)
CPT/HCPCS: 99213

== ENCOUNTER → 2024-09-05 11:03 | Outpatient (BNVA) | payer MEDICARE, MEDICAID, SELFPAY | PROVIDERS: PCP Nurse Practitioner Family; Visit Provider Nurse Practitioner Psychiatric/Mental Health | DX: F11.21 Opioid dependence, in remission (principal) | CPT/HCPCS: 99212 ==

== ENCOUNTER 2024-09-06 10:27 | Outpatient (REF) | payer MEDICARE, MEDICAID, SELFPAY | END 2024-09-06 10:28 | disposition home or self-care (01) | LOC: HO.HOSX 10:27 | PROVIDERS: Visit Provider Orthopaedic Surgery | DX: Z13.89 Encounter for screening for other disorder (principal) ==

== ENCOUNTER 2024-09-06 11:25 | Outpatient (AMB) | payer MEDICARE, MEDICAID, SELFPAY ==
--- NOTE | 2024-09-06 11:30 | A.OFFVIS_ITS ---
Intake Visit Reasons: TV-LT TKA, DOS 09/27/23 Intake Note: Aaliyah is a 58 year old female who presents today VIA telephone for a follow up visit to review recent xray results. s/p Left TKA DOS: 09/27/2023. Hx of multiple falls in June. Patient was given a Reaction knee brace for her left knee at her last visit on 07/30/24 Allergies effexor Allergy (Severe, Verified 07/30/24 12:32) shortness of breath escitalopram Allergy (Mild, Verified 07/30/24 12:32) rash Seasonal Allergies Allergy (Mild, Verified 07/30/24 12:32) rhinitis, watery eyes tramadol [TRAMADOL] Adverse Reaction (Intermediate, Verified 07/30/24 12:32) NAUSEA paroxetine [From PAXIL] Adverse Reaction (Mild, Verified 07/30/24 12:32) AGITATION HPI HPI TV-LT TKA, DOS 09/27/23: Details: Aaliyah continues to have medial-sided left knee pain. It actually feels worse than it did 6 months ago. Today where he set up a phone visit to review her x- rays. [facility] Medical History Osteoarthritis of left knee Emphysema/COPD Hyperplastic colon polyp (~2018) Hyperlipemia History of supraventricular tachycardia Nicotine dependence, cigarettes, uncomplicated HTN (hypertension) Hypothyroid Arthropathy of right knee Spinal cord stimulator dysfunction Right elbow tendonitis Surgical History History of total left knee replacement History of Achilles tendon repair History of cardiac cath History of cardiac radiofrequency ablation S/P insertion of spinal cord stimulator History of colonoscopy History of right salpingo-oophorectomy History of tubal ligation History of left knee surgery History of total right knee replacement History of revision of total replacement of right knee joint History of back surgery Family History Father No problems noted. Mother Diabetes Mental health disorder Sister Mental health disorder Social History Household Members: Spouse and Family Household Members Other:: Mother Housing: Apartment Are you a primary health careers instructor to a significant other at home: Yes (health careers instructor for mother, and daughter to assist post-op) Do you presently have visiting nurse or other home services: No Patient Tobacco Use Status: Current everyday Tobacco user Tobacco use type: Cigarette Cigarettes Per Day: 6 Years Smoked: 43 e-Cigarette/Vaping Use: Currently Using Second Hand Smoke Exposure: No service: No Current occupational status: unemployed Current occupational exposures/hazards: No Cognitive needs: No Hearing needs: No Vision needs: No Telehealth Telehealth Telehealth Platform: Telephone Location of provider rendering services: practice address Location of patient: address on file Patient Identification confirmed using: Name, : Yes Telehealth method: voice only Patient verbally consented to treatment: Yes Patient verbally consented to billing insurance company: Yes Patient informed of any privacy concerns related to visit: Yes Minutes spent on Phone/Video with Pt.: 10 Results Reviewed Results Reviewed: I personally reviewed relevant radiographs. Left total knee arthroplasty in expected post operative position with no hardware complications or evidence of loosening Assessment & Plan Assessment & Plan (1) Status post total left knee replacement: Code(s): Z96.652 - Presence of left artificial knee joint Category: Surgical Plan: Status post left TKA. Radiographs are unremarkable. Like her to come back and see me in my office and we will get a x-ray of her hip. Orders: Orders XR knee LT 3V Today M25.562 - Pain in left knee Coding Level of Care Code Tele Est Pt Level 3 (29995) Diagnoses Status post total left knee replacement Z96.652
== END 2024-09-06 13:46 | disposition home or self-care (01) ==
LOC: HO.HOS 11:25
PROVIDERS: PCP Nurse Practitioner Family; Visit Provider Orthopaedic Surgery
DX: M25.562 Pain in left knee (principal); Z96.652 Presence of left artificial knee joint
CPT/HCPCS: 99441

== ENCOUNTER 2024-09-20 13:02 | Outpatient (AMB) | payer MEDICARE, MEDICAID, SELFPAY ==
[2024-09-20 13:14] VITALS: BP 125/57; PULSE 84; O2SAT 97; BMI 33.7
--- NOTE | 2024-09-20 13:14 | A.OFFVIS_ITS ---
Vital Signs 09/20/24 13:14 Height 5 ft 7 in Weight 215 lb BMI 33.7 BP 125/57 L Blood Pressure Location Rt brachial Position Sitting Pulse 84 Pulse Source Pulse Oximeter Pulse Oximetry (%) 97 Oxygen Delivery Method Room Air Intake Visit Reasons: SCS CHECK UP(IMPLANTED BY JUANITO) Intake Note: Pain today 0/10 A&P Mechanic Required: No Accompanied by: Self / Same As Patient Allergies effexor Allergy (Severe, Verified 09/20/24 13:14) shortness of breath escitalopram Allergy (Mild, Verified 09/20/24 13:14) rash Seasonal Allergies Allergy (Mild, Verified 09/20/24 13:14) rhinitis, watery eyes tramadol [TRAMADOL] Adverse Reaction (Intermediate, Verified 09/20/24 13:14) NAUSEA paroxetine [From PAXIL] Adverse Reaction (Mild, Verified 09/20/24 13:14) AGITATION HPI Comments Details: Aaliyah is very pleasant 59 years old female who presents in my office for the follow-up after implantation of the spinal cord stimulator which was performed to her [address] Caba. She reports excellent results of spinal cord stimulator. She reports absence of lower back pain with radiation of bilateral lower extremities when she keeps charging her spinal cord stimulator. She is able to sleep normally she can do activities of daily living, she can take care of herself, she can function normally. She is here today with national account representative for [employer] Pasquale Hardin to adjust some minor irregularities with her spinal cord stimulator. Her past medical history negative, her past surgical history significant for bilateral total knee replacement in 2016 and 2022 as well as implantation of spinal cord stimulator in 2018. She received some injections by Dr. Caba in the past. She denies drinking alcohol she smokes 1 pack of cigarettes over the course of 2 weeks minimal smoking she drinks 6 cups of coffee a day and she denies recreational drugs. [facility] Medical History Osteoarthritis of left knee Emphysema/COPD Hyperplastic colon polyp (~2018) Hyperlipemia History of supraventricular tachycardia Nicotine dependence, cigarettes, uncomplicated HTN (hypertension) Hypothyroid Arthropathy of right knee Spinal cord stimulator dysfunction Right elbow tendonitis Surgical History History of total left knee replacement History of Achilles tendon repair History of cardiac cath History of cardiac radiofrequency ablation S/P insertion of spinal cord stimulator History of colonoscopy History of right salpingo-oophorectomy History of tubal ligation History of left knee surgery History of total right knee replacement History of revision of total replacement of right knee joint History of back surgery Family History Father No problems noted. Mother Diabetes Mental health disorder Sister Mental health disorder Social History Household Members: Spouse and Family Household Members Other:: Mother Housing: Apartment Are you a primary neonatal intensive care unit nurse to a significant other at home: Yes (neonatal intensive care unit nurse for mother, and daughter to assist post-op) Do you presently have visiting nurse or other home services: No Patient Tobacco Use Status: Current everyday Tobacco user Tobacco use type: Cigarette Cigarettes Per Day: 6 Years Smoked: 43 e-Cigarette/Vaping Use: Currently Using Second Hand Smoke Exposure: No service: No Current occupational status: unemployed Current occupational exposures/hazards: No Cognitive needs: No Hearing needs: No Vision needs: No Review of Systems Const All systems reviewed & are unremarkable except as noted in HPI and below ENT Reports Normal hearing present Neuro Reports Normal hearing present, Denies Abnormal speech present, Denies confusion and Denies Sensory deficit (Neuro) Psych Denies confusion Physical Exam Vital Signs: Last Vital Signs Pulse 84 09/20/24 13:14 BP 125/57 L 09/20/24 13:14 Pulse Ox 97 09/20/24 13:14 Oxygen Delivery Method Room Air 09/20/24 13:14 BMI result Body Mass Index 33.7 Const General: no acute distress; No confusion Orientation/consciousness: patient oriented x3 and No confusion Eyes General: appearance normal, both eyes and all related structures Pupils: Equal, round and reactive pupils present EOM: EOMs intact bilaterally Neck Neck: Yes full ROM Chest Chest palpation & inspection: normal inspection of the chest Resp Effort & Inspection: normal respiratory effort, able to speak in complete sentences, normal respiratory pattern, no audible wheezes and no cough Cardio Jugular venous distension: no JVD GI Inspection: Yes normal to inspection Neuro General: patient oriented x3, gait normal and No confusion Cranial nerves: Yes CN's II-XII intact bilaterally, Yes Equal, round and reactive pupils present, Yes Normal hearing present and Yes Ability to bilaterally elevate shoulders present Speech: No Abnormal speech present Gait exam (Neuro): Normal gait present Motor exam (neuro): 5/5 motor strength present throughout Sensory Exam: No Sensory deficit (Neuro) Extrem General: No pedal edema Psych Speech and movement: Normal speech and movement present Affect: normal affect Attitude: cooperative Thought process: Normal thought process present Thought content: Normal thought content present Insight: Good insight present (Psych) Judgement: Good judgement present (Psych) Assessment & Plan Assessment & Plan (1) Spinal cord stimulator status: Code(s): Z96.89 - Presence of other specified functional implants Category: Medical (2) Chronic pain syndrome: Code(s): G89.4 - Chronic pain syndrome Category: Medical Plan Pasquale Hardin is today in the office with Aaliyah to read her spinal cord stimulator and perform minor adjustments. The patient was informed that spinal cord stimulator needs to be replaced in 10 years from the start of the implantation. No new appointment needs to be scheduled with the patient unless she has problems. Coding Level of Care Code New Pt Level 3 (21574) Diagnoses Spinal cord stimulator status Z96.89 Chronic pain syndrome G89.4
== END 2024-09-20 13:37 | disposition home or self-care (01) ==
LOC: HO.PMC 13:02
PROVIDERS: PCP Nurse Practitioner Family; Visit Provider Anesthesiology
DX: Z96.89 Presence of other specified functional implants (principal); G89.4 Chronic pain syndrome
CPT/HCPCS: 99203

== ENCOUNTER → 2024-09-20 13:02 | Outpatient (BNVA) | payer MEDICARE, MEDICAID, SELFPAY | PROVIDERS: PCP Nurse Practitioner Family; Visit Provider Anesthesiology | DX: G89.4 Chronic pain syndrome (principal); Z96.82 Presence of neurostimulator | CPT/HCPCS: 99202 ==

== ENCOUNTER 2024-09-26 06:06 | Outpatient (REF) | payer MEDICARE, MEDICAID, SELFPAY ==
[2024-09-26 10:36] LABS: Appearance Urine Clear; Color Urine Yellow; Glucose Urine UA Negative (Negative); Leukocyte Esterase Urine Negative (Negative); Nitrite Urine Negative (Negative); PH 5.5 (5.0-9.0); Urine Blood Negative (Negative); Urine Ketones Negative (Negative); Urine Protein Negative (Neg-Trace)
[2024-09-26 10:42] LABS: MANUAL DIFF FLAG NO
[2024-09-26 10:47] LABS: Basophils Absolute Auto 0.1 X10*3/uL (0.0-0.2); Basophils Percent Auto 1.2 % (0-2); Eosinophils Absolute Auto 0.2 X10*3/uL (0.0-0.4); Hematocrit 39.5 % (37.0-47.0); Hemoglobin 12.5 g/dl (12.0-16.0); Imm Gran Abs Auto 0.01 X10*3/uL (0.00-0.03); Imm Gran Pct Auto 0.2 % (0.0-0.4); Lymphocytes Absolute Auto 1.9 X10*3/uL (1.2-4.9); Mean Corpuscular HGB Conc 31.6 g/dl (31.0-35.0); Mean Corpuscular Hemoglobin 28.3 pg (27.0-33.0); Mean Corpuscular Volume 89.6 fL (80.0-98.0); Mean Platelet Volume 11.2 fL (9.4-12.3); Monocytes Absolute Auto 0.5 X10*3/uL (0.1-1.2); Monocytes Percent Auto 8.7 % (2-11); Neutrophils Absolute Auto 3.4 x10*3/uL (2.0-8.3); Neutrophils Percent Auto 55.9 % (45-73); Platelet Count 267 X10*3/uL (160-400); Red Blood Count 4.41 X10*6/uL (4.20-5.50); Red Cell Distribution Width 12.7 % (11.0-16.0)
[2024-09-26 11:22] LABS: Alanine Aminotransferase 21 U/L (0-31); Albumin Level 4.2 g/dL (3.5-5.0); Alkaline Phosphatase 95 U/L (39-117); Anion Gap 12 (12-20); Aspartate Amino Transferase 26 U/L (5-31); Bilirubin Total 0.3 mg/dL (0.0-1.0); Blood Urea Nitrogen 15 mg/dL (9-16); Calcium 9.4 mg/dL (8.4-10.2); Carbon Dioxide 31 mmol/L (22-29); Chloride 102 mmol/L (96-108); Cholesterol 129 mg/dL (<200); Estimated Glomerular Filt Rate > 60; Glucose Fasting 96 mg/dL (60-99); HDL Cholesterol 47 mg/dL (>40); LDL Cholesterol Calculated 67 mg/dL (<100); Potassium 3.5 mmol/L (3.3-5.1); Sodium 141 mmol/L (135-145); Total Protein 7.6 g/dL (6.5-8.0); Triglycerides 78 mg/dL (<150)
[2024-09-26 11:48] LABS: TSH reflex Free T4 3.56 uIU/mL (0.32-4.0); Vitamin D 25-OH Total 12.7 ng/mL (>30)
== END 2024-09-26 06:07 | disposition home or self-care (01) ==
LOC: HO.HMGCLDS 06:06
PROVIDERS: PCP Nurse Practitioner Family; Visit Provider Nurse Practitioner Family
DX: Z00.01 Encounter for general adult medical examination with abnormal findings (principal); B07.9 Viral wart, unspecified; I35.0 Nonrheumatic aortic (valve) stenosis; Z23 Encounter for immunization; I10 Essential (primary) hypertension; E78.5 Hyperlipidemia, unspecified; E55.9 Vitamin D deficiency, unspecified
CPT/HCPCS: 36415; 80053; 80061; 81003; 82306; 84443; 85025; 90471; 90677; 96127; 99396

== ENCOUNTER 2024-09-26 13:50 | Outpatient (AMB) | payer MEDICARE, MEDICAID, SELFPAY ==
[2024-09-26 13:53] VITALS: BP 118/62; PULSE 82; O2SAT 97; BMI 35.9
--- NOTE | 2024-09-26 13:53 | MHC.PC.OV ---
Vital Signs 09/26/24 13:53 Height 5 ft 7 in Weight 229 lb BMI 35.9 BP 118/62 Blood Pressure Location Rt brachial Position Sitting Pulse 82 Pulse Source Pulse Oximeter Pulse Oximetry (%) 97 Intake Visit Reasons: PE Intake Note: pt is here for PE Inpatient Care Manager Rn Required: No Accompanied by: Self / Same As Patient Allergies effexor Allergy (Severe, Verified 09/26/24 14:19) shortness of breath escitalopram Allergy (Mild, Verified 09/26/24 14:19) rash Seasonal Allergies Allergy (Mild, Verified 09/26/24 14:19) rhinitis, watery eyes tramadol [TRAMADOL] Adverse Reaction (Intermediate, Verified 09/26/24 14:19) NAUSEA paroxetine [From PAXIL] Adverse Reaction (Mild, Verified 09/26/24 14:19) AGITATION Medication List - Last Reconciled 09/26/24 by KARYN NovakP- ascorbic acid (vitamin C) (Vitamin C) 250 mg PO DAILY atorvastatin 20 mg PO BEDTIME 90 days buprenorphine-naloxone 8-2 mg 1 film buccal TID chlorthalidone 25 mg PO DAILY cholecalciferol (vitamin D3) 50 mcg PO DAILY compr.stocking,knee,long,x-lrg 20/30 fluoxetine 60 mg (3 x 20 mg) PO QAM levothyroxine 112 mcg PO DAILY multivit with min-folic acid 200 mcg (Multivitamin Gummies) 1 tab PO DAILY trazodone 50 mg PO BEDTIME PRN Tobacco use date assessed: 09/26/24 Dental Screening Dental Screen Date: 09/26/24 Did you have a dental visit in the last 12 months?: Yes Did you have a dental problem in the last 6 months where you did not have access to dental care?: No Was dental information given to patient?: Patient has dentist HPI PE HPI Details Pt is here for a PE. Labs were already performed. Colon screen is up to date. Due for mammo. Pt does not have a manager animation, will refer. Pt goes for yearly low-dose lung CTs. Pt has a hx of aortic stenosis. Will repeat echo. Pt reports singular warts to her right palm. Will refer to derm. Pt sees pain management and addiction medicine. [facility] Medical History Osteoarthritis of left knee Emphysema/COPD Hyperplastic colon polyp (~2018) Hyperlipemia History of supraventricular tachycardia Nicotine dependence, cigarettes, uncomplicated HTN (hypertension) Hypothyroid Arthropathy of right knee Spinal cord stimulator dysfunction Right elbow tendonitis Surgical History History of total left knee replacement History of Achilles tendon repair History of cardiac cath History of cardiac radiofrequency ablation S/P insertion of spinal cord stimulator History of colonoscopy History of right salpingo-oophorectomy History of tubal ligation History of left knee surgery History of total right knee replacement History of revision of total replacement of right knee joint History of back surgery Family History Father No problems noted. Mother Diabetes Mental health disorder Sister Mental health disorder Social History Household Members: Spouse and Family Household Members Other:: Mother Housing: Apartment Are you a primary medicare biller to a significant other at home: Yes (medicare biller for mother, and daughter to assist post-op) Do you presently have visiting nurse or other home services: No Patient Tobacco Use Status: Current everyday Tobacco user Tobacco use type: Cigarette Cigarettes Per Day: 6 Years Smoked: 43 e-Cigarette/Vaping Use: Currently Using Second Hand Smoke Exposure: No service: No Current occupational status: unemployed Current occupational exposures/hazards: No Cognitive needs: No Hearing needs: No Vision needs: No Questionnaire PHQ-9 Over the last 2 weeks, how often have you been bothered by any of the following problems? 1. Little interest or pleasure in doing things: several days 2. Feeling down, depressed, or hopeless: several days 3. Trouble falling or staying asleep, or sleeping too much: several days 4. Feeling tired or having little energy: several days 5. Poor appetite or overeating: nearly every day 6. Feeling bad about yourself - or that you are a failure or have let yourself or your family down: several days 7. Trouble concentrating on things, such as reading the newspaper or watching television: several days 8. Moving or speaking so slowly that other people could have noticed. Or the opposite - being so fidgety or restless that you have been moving around a lot more than usual: several days 9. Thoughts that you would be better off or of hurting yourself in some way: not at all Total score: 10 Depression Screening Interpretation: Positive (has a therapist, denies any SI or HI. ) Depression Screening Follow-up: Existing condition Depression Screening Done: Yes 88119 - PHQ-9 Billing: Yes Source: Developed by Drs. Miles Anguiano, Jennifer Hill, Xander Rodriguez and colleagues, with an educational jaqcueline from [employer]. Thrive Questionnaire Date Thrive assessed: 09/26/24 I am a: Patient What is your living situation today?: I have a steady place to live Within the past 12 months, did the food you bought not last and you didn't have the money to get more?: Never true Within the past 12 months, did you worry whether your food would run out before you got money to buy more?: Never true Do you have trouble paying for medicines?: No Do you have trouble getting transportation to medical appointments?: No Do you have trouble paying your heating and electricity bill?: No Do you have trouble taking care of your child, family member or friend?: No Do you have trouble with day-to-day activities such as bathing, preparing meals, shopping, managing finances, etc.?: No Are you currently unemployed and looking for a job?: No Are you interested in more education?: No Please select the resources that you would like help with: None Currently or been in a relationship where the following occur: No concerns reported THRIVE Score: 0 AUDIT C Alcohol Use Questionnaire (AUDIT-C) 1. How often do you have a drink containing alcohol?: Never 3. How often do you have six or more drinks on one occasion?: Never Total Score: 0 Score Reviewed/Action Taken: Yes JOAN-7 AMB Questionnaire JOAN-7 Date JOAN - 7 assessed: 09/26/24 Feeling nervous, anxious, or on edge: 1 = Several days Not being able to stop or control worryin = Several days Worrying too much about different things: 1 = Several days Trouble relaxin = Several days Being so restless that it is hard to sit still: 1 = Several days Becoming easily annoyed or irritable: 1 = Several days Feeling afraid as if something awful might happen: 0 = Not at all Total JOAN-7 score (0-4 normal; 5-9 mild; 10-14 moderate; 15-21 severe): 6 Source: Developed by Drs. Miles Anguiano, Jennifer Hill, Xander Rodriguez and colleagues, with an educational jacqueline from [employer]. JOAN-7 Assessment Billing JOAN-7 Assessment Tool: JOAN-7 Assessment 55300 Review of Systems Const Denies chills and Denies fever(s) Eyes Denies blurry vision ENT Denies vertigo, Denies dizziness and Denies sore throat Card Denies chest pain at rest, Denies chest pain with activity, Denies diaphoresis, Denies dyspnea and Denies dyspnea on exertion Resp Denies cough, Denies dyspnea, Denies dyspnea on exertion and Denies wheezing GI Denies abdominal pain, Denies melena, Denies hematochezia, Denies constipation, Denies diarrhea and Denies loose stools Denies hematuria Musc Denies numbness and Denies tingling Skin/Breast Denies lesions Neuro Denies vertigo, Denies dizziness, Denies numbness and Denies tingling Psych Denies anxiety, Denies depression, Denies homicidal ideation, Denies suicidal ideation and Denies other (substance abuse) Aller/Immun Denies wheezing Physical exam (Primary Care) Vital Signs: Last Vital Signs Pulse 82 09/26/24 13:53 BP 118/62 09/26/24 13:53 Pulse Ox 97 09/26/24 13:53 BMI result Body Mass Index 35.9 Tobacco/Smoking Status: Tobacco use Status Tobacco use date assessed 09/26/24 09/26/24 13:58 Patient Tobacco Use Status Current everyday Tobacco 09/26/24 13:53 Tobacco use type Cigarette 09/26/24 13:53 e-Cigarette/Vaping Use Currently Using 09/26/24 13:53 PHQ-9: PHQ-9 Score PHQ-9: Total score 10 09/26/24 14:32 Depression Screening Interpretation: Positive (has a therapist, denies any SI or HI. ) Depression Screening Follow-up: Existing condition Thrive Assessment: Date of Thrive Assessment Date Thrive assessed 09/26/24 09/26/24 13:58 Currently or been in a relationship where the following occur: No concerns reported Const General: cooperative Nutritional Appearance: obese Orientation/consciousness: patient oriented x3 HENMT Head: Yes normal to inspection, Yes normocephalic and Yes atraumatic Ears: TM's normal bilaterally Eyes General: appearance normal, both eyes and all related structures Alignment and Position: alignment normal and position normal Neck Neck: Yes normal visual inspection, Yes no lymphadenopathy and Yes supple Resp Effort & Inspection: normal respiratory effort Auscultation: clear to auscultation bilaterally Cardio Rate: regular rate Rhythm: regular rhythm Heart sounds: S1 normal heart sound present, S2 normal heart sound present and Murmur heart sound present systolic GI Palpation (GI): Soft to palpation and nontender Auscultation: normal bowel sounds Skin Other: right hand, villalobos aspect with small singular warts Rashes: no rashes Neuro General: patient oriented x3, moves all extremities, no focal motor deficits and deep tendon reflexes 2+ bilaterally Romberg Test: Negative Psych Appearance: grossly normal Mental Status: mental status grossly normal Speech and movement: Normal speech and movement present Affect: normal affect Attitude: cooperative Thought process: Normal thought process present Thought content: Normal thought content present Insight: Good insight present (Psych) Judgement: Good judgement present (Psych) Immunizations pneumoc 20-marybel conj-dip cr(PF) 0.5 mL IM syringe Performing Provider: SONA Novak Performing Location[place] [facility] [place] [facility] Administered by: Joshua Win CMA on 09/26/24 14:32 Dose Route Admin Location Dispensed Lot Number Expiration Date [facility] Home Health Billing Specialist 0.5 mL IM Right Deltoid 0.5 mL [id number] 11/02/25 [employer] VIS Given Date VIS Provided VIS Publication Date 09/26/24 Single Vaccine 21 Eligibility Eligibility Date Funding Source Not [facility] Eligible 09/26/24 Private Coding Level of Care Code Est Pt Prev Care 40-64y(62905) Diagnoses Screening for cervical cancer Z12.4 Warts B07.9 Aortic stenosis I35.0 Encounter for routine adult physical exam with abnormal findings Z00.01 Additional Codes JOAN-7 Assessment Billing - JOAN-7 Assessment Tool: JOAN-7 Assessment 73167 ([id number]) PHQ-9 - 45386 - PHQ-9 Billing: Yes ([id number]) Assessment & Plan Assessment & Plan (1) Screening for cervical cancer: Code(s): Z12.4 - Encounter for screening for malignant neoplasm of cervix Category: Medical Plan: referred for pap (2) Warts: Code(s): B07.9 - Viral wart, unspecified Category: Medical Plan: referred to derm (3) Aortic stenosis: Code(s): I35.0 - Nonrheumatic aortic (valve) stenosis Category: Medical Plan: echo (4) Encounter for routine adult physical exam with abnormal findings: Code(s): Z00.01 - Encounter for general adult medical examination with abnormal findings Category: Medical Plan: encouraged pt to get labs drawn Plan The patient agreed to the use of a medical record consultant for this encounter. Scribed for SONA Maciel by Taylor Caldwell medical record consultant, on 09/26/2024 at 14:05 EST. Orders: Orders MM screening mammo BI Today Z12.31 - Encounter for screening mammogram for malignant neoplasm of breast Pneumococcal 20 Immunization Today Z23 - Encounter for immunization CA echo transthoracic complete Today I35.0 - Nonrheumatic aortic (valve) stenosis Referrals [employer] Referral Z12.4 - Encounter for screening for malignant neoplasm of cervix Dermatology Referral B07.9 - Viral wart, unspecified
== END 2024-09-26 14:40 | disposition home or self-care (01) ==
PROVIDERS: PCP Nurse Practitioner Family; Visit Provider Nurse Practitioner Family
DX: Z00.01 Encounter for general adult medical examination with abnormal findings (principal); B07.9 Viral wart, unspecified; I35.0 Nonrheumatic aortic (valve) stenosis; Z23 Encounter for immunization

== ENCOUNTER → 2024-10-22 12:48 | Outpatient (REF) | payer MEDICARE, MEDICAID, SELFPAY ==
--- NOTE | 2024-10-22 12:51 | CA_ITS ---
Transthoracic Echocardiogram Patient (Last, First, Middle): Aaliyah Espinoza, Gender: Female Date of : 1965 Age: 59 Procedure Date: 10/22/2024 Procedure Type: Transthoracic Echocardiogram Location: OP Height: 170.18 cm Weight: 103.87 kg BSA: 2.14 m2 Heart Rate: bpm BP: 118 / 62 mmHg Vocational Guidance Counselor: [place] Referring MD: Trevor Ahn [facility] Tank Worker: Jono Tovar MD Symptoms: I35.0 - Nonrheumatic aortic (valve) stenosis Study Quality: Fair ECG Rhythm: Sinus Conclusions: - 1. Normal LV ejection fraction of 60 65% 2. Early mild aortic stenosis 3. Normal RV systolic pressure 4. No gross pericardial effusion Findings Left Ventricle Normal left ventricular size, thickness, and systolic function. The visually estimated ejection fraction is between 60-65%. Regional wall motion abnormalities can not be excluded due to suboptimal endocardial definition. Spectral Doppler is indicative of a normal filling pattern. Right Ventricle Normal right ventricular cavity size and systolic function. Atria The left atrium is likely dilated. Interatrial shunt cannot be excluded. The right atrium is normal in size. Aortic Valve There is mild calcification of the aortic valve. There is mild aortic valve stenosis. The peak aortic velocity is 1.89 m/s with a calculated peak gradient of 14 mmHg. The mean gradient is 6 mmHg. The aortic valve area is 2.18 cm2. There is no aortic valve regurgitation. Mitral Valve Normal mitral valve structure and function. There is trace mitral valve regurgitation. There is no mitral valve stenosis. Pulmonic Valve The pulmonic valve is likely normal. Tricuspid Valve Normal tricuspid valve structure. There is trace tricuspid valve regurgitation. The right ventricular systolic pressure is normal. The right ventricular systolic pressure is 30 mmHg. Normal right atrial pressure. There is no evidence of pulmonary hypertension. Great Vessels All visible segments of the aorta are normal in size. The pulmonary artery was not well visualized. There is no dilatation of the ascending aorta measuring 3.20 cm. Venous The inferior vena cava is normal in size and collapses greater than 50% with inspiration. Pericardium/Pleural There is no evidence of pericardial effusion. Measurements 2D Linear Measurements IVSd: 0.86 0.6-0.9/0.6-1.0 cm LVIDd: 5.78 3.9-5.3/4.2-5.9 cm LVIDd Index: 2.70 2.4-3.2/2.2-3.1 cm/m2 LVIDs: 3.67 2.0-3.6 cm LVPWd: 1.05 0.7-1.1 cm LA Diam: 3.60 2.7-3.8/3.0-4.0 cm LAIDs Index: 1.68 1.5-2.3 cm/m2 LV Mass: 272.68 67-162/88-224 g LV Mass Index: 127.42 43-95/49-115 g/m2 LVOT Diam: 2.20 3.0+(-)1.3 cm 2D Systolic Function EF 4C: 58.40 >55% EF 2C: 61.80 >55% EF BiP: 60.40 >55% Mitral Valve MV Pk E: 0.86 MV PK A: 0.51 MV Decel Time: 271.00 E/A: 1.70 E'Lateral: 11.20 E'Medial: 8.27 E/E' Med: 10.40 E/E' Lat: 7.70 PHT: 79.00 MVA PHT: 2.78 Decel Maury: 3.17 Aortic Valve AoV Pk Cristhian: 1.89 AoV Mn Cristhian: 1.11 AoV VTI: 0.36 AoV Pk Grad: 14.00 Aov Mn Grad: 6.00 KENNY Cont.VTI: 2.18 LVOT LVOT Pk Cristhian: 0.92 LVOT Mn Cristhian: 0.56 LVOT VTI: 0.21 LVOT Pk Grad: 3.00 LVOT Mn Grad: 2.00 LVOT Diam: 2.20 LVOT Area: 3.80 Diastolic Function MV Pk E: 0.86 MV Pk A: 0.51 E/A: 1.70 E'Medial: 8.27 E/E' Med: 10.40 E' Laterial: 11.20 E/E' Lat: 7.70 Right Ventricle TAPSE (mm): 27.80 TVS' Cristhian: 13.70 Tricuspid Valve TR Pk Cristhian: 2.62 TR Pk Grad: 27.00 RA Press: 3.00 RVSP: 30.00 Great Vessels Aorta Sinus of Valsalva: 3.22 2.0-3.[address] Ridge: 2.67 1.7-3.4 cm Ao Asc: 3.20 2.1-3.4 cm Ao Arch: 2.90 Updated in Other Vendor System with Status of Final Jono Tovar MD electronically signed on 10/22/2024 3:26:30 PM with status of Final
== END ==
LOC: HO.CARD 12:48
PROVIDERS: PCP Nurse Practitioner Family; Visit Provider Nurse Practitioner Family
DX: I35.0 Nonrheumatic aortic (valve) stenosis (principal)
CPT/HCPCS: 93306

== ENCOUNTER → 2024-10-22 12:51 | Outpatient (BNV) | payer MEDICARE, MEDICAID, SELFPAY | PROVIDERS: PCP Nurse Practitioner Family; Visit Provider Internal Medicine Cardiovascular Disease | DX: I35.0 Nonrheumatic aortic (valve) stenosis (principal); I35.8 Other nonrheumatic aortic valve disorders | CPT/HCPCS: 93306 ==

== ENCOUNTER 2024-10-31 11:05 | Outpatient (AMB) | payer MEDICARE, MEDICAID, SELFPAY ==
--- NOTE | 2024-10-31 11:09 | MHC.AM.SUB ---
Intake Visit Reasons: MAT Allergies effexor Allergy (Severe, Verified 09/26/24 14:19) shortness of breath escitalopram Allergy (Mild, Verified 09/26/24 14:19) rash Seasonal Allergies Allergy (Mild, Verified 09/26/24 14:19) rhinitis, watery eyes tramadol [TRAMADOL] Adverse Reaction (Intermediate, Verified 09/26/24 14:19) NAUSEA paroxetine [From PAXIL] Adverse Reaction (Mild, Verified 09/26/24 14:19) AGITATION HPI HPI MAT: Details: Pt presents for OUD treatment follow up Currently being prescribed SUboxone 8mg TID Denies any side effects related to medication Usually takes medications 3x/day, but does occasionally take it less Engaged in outpt BH treatment --sees therapist regulary Still struglling with caring for her mother Review of Systems Const Reports as per HPI and Reports difficulty sleeping Psych Reports anxiety and Reports depression Physical Exam Const General: cooperative, alert, anxious and well groomed Orientation/consciousness: patient oriented x3 Limitations: no limitations Neuro General: patient oriented x3 Psych Appearance: well kempt Speech and movement: Normal speech and movement present Affect: Anxious affect present Attitude: cooperative Thought process: Normal thought process present Thought content: Normal thought content present Insight: Good insight present (Psych) Judgement: Good judgement present (Psych) Assessment & Plan Assessment & Plan (1) Opioid use disorder, moderate, in sustained remission: Code(s): F11.21 - Opioid dependence, in remission Category: Medical Plan: continue suboxone at current dose follow up 2 months [facility] Medical History Osteoarthritis of left knee Emphysema/COPD Hyperplastic colon polyp (~2018) Hyperlipemia History of supraventricular tachycardia Nicotine dependence, cigarettes, uncomplicated HTN (hypertension) Hypothyroid Arthropathy of right knee Spinal cord stimulator dysfunction Right elbow tendonitis Surgical History History of total left knee replacement History of Achilles tendon repair History of cardiac cath History of cardiac radiofrequency ablation S/P insertion of spinal cord stimulator History of colonoscopy History of right salpingo-oophorectomy History of tubal ligation History of left knee surgery History of total right knee replacement History of revision of total replacement of right knee joint History of back surgery Family History Father No problems noted. Mother Diabetes Mental health disorder Sister Mental health disorder Social History Household Members: Spouse and Family Household Members Other:: Mother Housing: Apartment Are you a primary medication care manager to a significant other at home: Yes (medication care manager for mother, and daughter to assist post-op) Do you presently have visiting nurse or other home services: No Patient Tobacco Use Status: Current everyday Tobacco user Tobacco use type: Cigarette Cigarettes Per Day: 6 Years Smoked: 43 e-Cigarette/Vaping Use: Currently Using Second Hand Smoke Exposure: No service: No Current occupational status: unemployed Current occupational exposures/hazards: No Cognitive needs: No Hearing needs: No Vision needs: No
== END 2024-10-31 13:12 | disposition home or self-care (01) ==
PROVIDERS: PCP Nurse Practitioner Family; Visit Provider Nurse Practitioner Psychiatric/Mental Health
DX: F11.21 Opioid dependence, in remission (principal)
CPT/HCPCS: 99213

== ENCOUNTER → 2024-10-31 11:05 | Outpatient (BNVA) | payer MEDICARE, MEDICAID, SELFPAY | PROVIDERS: PCP Nurse Practitioner Family; Visit Provider Nurse Practitioner Psychiatric/Mental Health | DX: F11.21 Opioid dependence, in remission (principal) | CPT/HCPCS: 99212 ==

== ENCOUNTER 2025-01-09 11:03 | Outpatient (AMB) | payer MEDICARE, MEDICAID, SELFPAY ==
--- NOTE | 2025-01-09 12:51 | A.OFFVISCC_ITS ---
Intake Visit Reasons: MAT Allergies effexor Allergy (Severe, Verified 09/26/24 14:19) shortness of breath escitalopram Allergy (Mild, Verified 09/26/24 14:19) rash Seasonal Allergies Allergy (Mild, Verified 09/26/24 14:19) rhinitis, watery eyes tramadol [TRAMADOL] Adverse Reaction (Intermediate, Verified 09/26/24 14:19) NAUSEA paroxetine [From PAXIL] Adverse Reaction (Mild, Verified 09/26/24 14:19) AGITATION HPI HPI MAT: Details: Patient seen in follow up Very tearful entirety of visit, sharing that her mother 3 days ago. Provided support to patient during visit Discussed relapse prevention plan for alcohol use--patient stating she will go to an AA meeting if thoughts of drinking persist Strong family supports and well engaged with therapist Review of Systems Const Other (deferred ) Physical Exam Const General: tired appearing Orientation/consciousness: patient oriented x3 Limitations: no limitations Neuro General: patient oriented x3 Psych Appearance: well kempt Speech and movement: Clear speech present Affect: Sad affect present Insight: Good insight present (Psych) Judgement: Good judgement present (Psych) [facility] Medical History Osteoarthritis of left knee Emphysema/COPD Hyperplastic colon polyp (~2018) Hyperlipemia History of supraventricular tachycardia Nicotine dependence, cigarettes, uncomplicated HTN (hypertension) Hypothyroid Arthropathy of right knee Spinal cord stimulator dysfunction Right elbow tendonitis Surgical History History of total left knee replacement History of Achilles tendon repair History of cardiac cath History of cardiac radiofrequency ablation S/P insertion of spinal cord stimulator History of colonoscopy History of right salpingo-oophorectomy History of tubal ligation History of left knee surgery History of total right knee replacement History of revision of total replacement of right knee joint History of back surgery Family History Father No problems noted. Mother Diabetes Mental health disorder Sister Mental health disorder Social History Household Members: Spouse and Family Household Members Other:: Mother Housing: Apartment Are you a primary customer care agent to a significant other at home: Yes (customer care agent for mother, and daughter to assist post-op) Do you presently have visiting nurse or other home services: No Patient Tobacco Use Status: Current everyday Tobacco user Tobacco use type: Cigarette Cigarettes Per Day: 6 Years Smoked: 43 e-Cigarette/Vaping Use: Currently Using Second Hand Smoke Exposure: No service: No Current occupational status: unemployed Current occupational exposures/hazards: No Cognitive needs: No Hearing needs: No Vision needs: No Assessment & Plan Assessment & Plan (1) Opioid use disorder, moderate, in sustained remission: Code(s): F11.21 - Opioid dependence, in remission Category: Medical Plan: * follow up 2 months * relapse prevention discussion and safety planning related to alcohol use * encouraged to call office prior to next appt should she need additional support Medications: Refilled buprenorphine-naloxone 8-2 mg 1 film buccal TID 90 ea 1RF
--- OUTSIDE RECORDS SUMMARY | 2025-01-09 13:52 | XMS_ITS | Clinical Summary ---
Author Organization [employer] [facility] ity Address [address] [place] [address] Care Team Providers Care Chief Mate Name Role Phone Trevor Ahn NP Primary Care Provider Surgical History Surgery Date Site/Laterality Comments TOTAL KNEE ARTHROPLASTY 06/18/2020 Right PROCEDURE: HISTORICAL TOTAL KNEE REPLACE; COMMENT: Revision, Dr Holder KNEE ARTHROSCOPY 02/10/2021 Left PROCEDURE: [place] ARTHROSCOPY AID [place] SPINE&/FX KNEE W/O FIXJ; COMMENT: Partial Medial Meniscectomy, Partial Synovectomy of Impinging Plica, Dr. Holder OTHER SURGICAL HISTORY 2000 PROCEDURE: [place] ANES CARDIAC ELECTROPHYSIOL STDY W/RF ABLATION BACK SURGERY 02/03/2018 PROCEDURE: HISTORICAL BACK SURGERY; COMMENT: Spine Stimulator ELBOW SURGERY 11/2011 Right PROCEDURE: HISTORICAL ELBOW SURGERY; COMMENT: Lateral Epicondylar Debridement, [facility] Medical History Medical History Date Comments Anxiety and depression DX:Anxiet y and depression Alcohol abuse DX:Alcohol abuse SVT (supraventricular tachyc ardia) (CMS/HCC) DX:SVT (supraventricular tac hycardia) ([facility]) Restless leg syndrome DX:Restles s leg syndrome Lumbar degenerative disc disease DX:Lumbar degenerative disc disease Drug abuse (CMS/[facility]) DX:Drug abu se ([facility]) Disorder of thyroid DX:Disorder of thyroid Arthropathy of right knee DX:Art hropathy of right knee Left medial knee pain DX:Left me dial knee pain Mild aortic stenosis DX:Mild aor tic stenosis Opioid use disorder DX:Opioid us e disorder Pneumonia DX:Pneumonia Right elbow tendonitis DX:Right elbow tendonitis Spinal cord stimulator dysfu nction (CMS/HCC) DX:Spinal cord stimulator dy sfunction ([facility]) Swelling of lower extremity DX:S welling of lower extremity Family History Medical History Relation Name Comments Diabetes Mother Relation Name Status Comments Father Mother Social History Tobacco Use Types Packs/Day Years Used Date Smoking Tobacco: Every Day Cigarettes Smokeless Tobacco: Never Alcohol Use Standard Drinks/Week Comments Never 0 (1 standard drink = 0.6 oz pur e alcohol) Comments Unknown Sex and Gender Information Value Date Recorded Sex Assigned at Not on file Legal Sex Female 7:45 PM EST Gender Identity Not on file Sexual Orientation Not on file Obstetrics History Last Filed Vital Signs Vital Sign Reading Time Taken Comments Blood Pressure 108/70 03/31/2023 2:06 PM EDT Sit ting L Arm Pulse 77 03/31/2023 2:06 PM EDT Temperature - - Respiratory Rate - - Oxygen Saturation - - Inhaled Oxygen Concentration - - Weight 96.2 kg (212 lb) 04/05/2023 2:50 PM EDT Height 170.2 cm (5' 7 ) 04/05/2023 2:50 PM EDT Body Mass Index 33.2 04/05/2023 2:50 PM EDT Plan of Treatment Health Maintenance Due Date Last Done Comments Breast Cancer Screening 1966 DTaP,Tdap,and Td Vaccines (1 - Tdap) 1985 Hepatitis B Vaccines (1 of 3 - 19+ 3-dose series) 1985 Cervical Cancer Screening: P ap Smear 1987 Zoster Vaccines (1 of 2) 2016 Pneumococcal Vaccine: 50+ Years (2 of 2 - PCV) 08/27/2022 08/27/2021 Pneumococcal Vaccine: Pediatrics (0 to 5 Years) and At-Risk Patients (6 to 64 Years) (2 of 2 - PCV) 08/27/2022 08/27/2021 Cholesterol Screening (Lipid Panel) 10/24/2022 Colorectal Cancer Screening: Colonoscopy 10/24/2022 Depression Screening 10/24/2022 HIV Screening 10/24/2022 Hepatitis C Screening 10/24/2022 Social Influencers of Health Screening 10/24/2022 COVID-19 Vaccine ( - 2023-2 5 season) 2024 Influenza Vaccine (#1) 2024 2, 08/27/2021 HIB Vaccines Aged Out No longer eligi ble based on patient's age to complete this topic HPV Vaccines Aged Out No longer eligi ble based on patient's age to complete this topic Hepatitis A Vaccines Aged Out No long er eligible based on patient's age to complete this topic IPV Vaccines Aged Out No longer eligi ble based on patient's age to complete this topic MMR Vaccines Aged Out No longer eligi ble based on patient's age to complete this topic Meningococcal ACWY Vaccine Aged Out N o longer eligible based on patient's age to complete this topic Meningococcal B Vacine Aged Out No lo nger eligible based on patient's age to complete this topic RSV Immunization Patients Under 20 months Aged Out No longer eligible b ased on patient's age to complete this topic Varicella Vaccines Aged Out No longer eligible based on patient's age to complete this topic Care Teams Chief Mate Relationship Specialty Start Date End Date Trevor Ahn NP [address], [place] PCP - General 09/22/21
== END 2025-01-09 11:33 | disposition home or self-care (01) ==
PROVIDERS: PCP Nurse Practitioner Family; Visit Provider Nurse Practitioner Psychiatric/Mental Health
DX: F11.21 Opioid dependence, in remission (principal)
CPT/HCPCS: 99213

== ENCOUNTER → 2025-01-09 11:03 | Outpatient (BNVA) | payer MEDICARE, MEDICAID, SELFPAY | PROVIDERS: PCP Nurse Practitioner Family; Visit Provider Nurse Practitioner Psychiatric/Mental Health | DX: F11.21 Opioid dependence, in remission (principal) | CPT/HCPCS: 99212 ==

== ENCOUNTER 2025-03-08 10:23 | Outpatient (AMB) | payer MEDICARE, MEDICAID, SELFPAY ==
--- NOTE | 2025-03-08 10:29 | MHC.OFFVIS ---
Vital Signs 03/08/25 10:35 Height 5 ft 7 in Weight 248 lb BMI 38.8 Pulse 80 Pulse Source Pulse Oximeter Pulse Oximetry (%) 99 Oxygen Delivery Method Room Air Intake Visit Reasons: MAT Allergies effexor Allergy (Severe, Verified 03/08/25 10:35) shortness of breath escitalopram Allergy (Mild, Verified 03/08/25 10:35) rash Seasonal Allergies Allergy (Mild, Verified 03/08/25 10:35) rhinitis, watery eyes tramadol [TRAMADOL] Adverse Reaction (Intermediate, Verified 03/08/25 10:35) NAUSEA paroxetine [From PAXIL] Adverse Reaction (Mild, Verified 03/08/25 10:35) AGITATION HPI HPI MAT: Details: She is doing well on three a day Suboxone [facility] Medical History (Updated 03/08/25 @ 11:07 by Suellen Flanagan MD) Opioid use Osteoarthritis of left knee Emphysema/COPD Hyperplastic colon polyp (~2018) Hyperlipemia History of supraventricular tachycardia Nicotine dependence, cigarettes, uncomplicated HTN (hypertension) Hypothyroid Arthropathy of right knee Spinal cord stimulator dysfunction Right elbow tendonitis Surgical History History of total left knee replacement History of Achilles tendon repair History of cardiac cath History of cardiac radiofrequency ablation S/P insertion of spinal cord stimulator History of colonoscopy History of right salpingo-oophorectomy History of tubal ligation History of left knee surgery History of total right knee replacement History of revision of total replacement of right knee joint History of back surgery Family History Father No problems noted. Mother Diabetes Mental health disorder Sister Mental health disorder Social History Household Members: Spouse and Family Household Members Other:: Mother Housing: Apartment Are you a primary medical care manager to a significant other at home: Yes (medical care manager for mother, and daughter to assist post-op) Do you presently have visiting nurse or other home services: No Patient Tobacco Use Status: Current everyday Tobacco user Tobacco use type: Cigarette Cigarettes Per Day: 6 Years Smoked: 43 e-Cigarette/Vaping Use: Currently Using Second Hand Smoke Exposure: No service: No Current occupational status: unemployed Current occupational exposures/hazards: No Cognitive needs: No Hearing needs: No Vision needs: No Physical Exam Vital Signs: Last Vital Signs Pulse 80 03/08/25 10:35 Pulse Ox 99 03/08/25 10:35 Oxygen Delivery Method Room Air 03/08/25 10:35 BMI result Body Mass Index 38.8 Results AMB 14 Panel Urine Drug Screen Urine Marijuana (THC) Negative Last Edit by Vimal Cisneros CMA on 03/08/25 10:37 Urine Cocaine Negative Last Edit by Vimal Cisneros CMA on 03/08/25 10:37 Urine Morphine Negative Last Edit by Vimal Cisneros CMA on 03/08/25 10:37 Urine Methamphetamine Negative Last Edit by Vimal Cisneros CMA on 03/08/25 10:37 Urine Amphetamine Negative Last Edit by Vimal Cisneros CMA on 03/08/25 10:37 Urine Benzodiazepine Negative Last Edit by Vimal Cisneros CMA on 03/08/25 10:37 Urine Barbiturates Negative Last Edit by Vimal Cisneros CMA on 03/08/25 10:37 Urine Methadone Negative Last Edit by Vimal Cisneros CMA on 03/08/25 10:37 Urine Buprenorphine Positive Last Edit by Vimal Cisneros CMA on 03/08/25 10:37 Urine Tricyclic Antidepressant Negative Last Edit by Vimal Cisneros CMA on 03/08/25 10:37 Urine MDMA Negative Last Edit by Vimal Cisneros CMA on 03/08/25 10:37 Urine Oxycodone Negative Last Edit by Vimal Cisneros CMA on 03/08/25 10:37 Urine Phencyclidine Negative Last Edit by Vimal iCsneros CMA on 03/08/25 10:37 Urine Propoxyphene Negative Last Edit by Vimal Cisneros CMA on 03/08/25 10:37 Results Reviewed Results Reviewed: Laboratory Last Values POC Urine Buprenorphine Positive 03/08/25 10:29 POC Urine Morphine Negative 03/08/25 10:29 POC Urine Oxycodone Negative 03/08/25 10:29 POC Urine Methadone Negative 03/08/25 10:29 POC Urine Propoxyphene Negative 03/08/25 10:29 POC Urine Barbiturates Negative 03/08/25 10:29 POC U Tricyclic Antidpr Negative 03/08/25 10:29 POC Urine PCP Negative 03/08/25 10:29 POC Ur Amphetamines Negative 03/08/25 10:29 POC Ur Methamphetamine Negative 03/08/25 10:29 POC Urine MDMA Negative 03/08/25 10:29 POC Ur Benzodiazepine Negative 03/08/25 10:29 POC Urine Cocaine Negative 03/08/25 10:29 POC Ur Marijuana (THC) Negative 03/08/25 10:29 Assessment & Plan Assessment & Plan (1) Opioid use: Code(s): F11.90 - Opioid use, unspecified, uncomplicated Category: Medical Plan: Continue 3 a day Suboxone See in two months Orders: Orders AMB 14 Panel Urine Drug Screen Today Z51.81 - Encounter for therapeutic drug level monitoring Medications: New buprenorphine-naloxone 8-[address] 1 film on inside of (each) cheek 3 film sublingual Q24H 90 ea 1RF 30 days Coding Level of Care Code Est Pt Level 3 (72821) Diagnoses Opioid use F11.90
[2025-03-08 10:35] VITALS: PULSE 80; O2SAT 99; BMI 38.8
--- OUTSIDE RECORDS SUMMARY | 2025-03-08 10:54 | XMS_ITS | Clinical Summary ---
Author Organization [employer] [facility] ity Address [address] [place] [address] Care Team Providers Care Production Control Manager Name Role Phone Trevor Ahn NP Primary Care Provider [phone] Surgical History Surgery Date Site/Laterality Comments TOTAL KNEE ARTHROPLASTY 06/18/2020 Right PROCEDURE: HISTORICAL TOTAL KNEE REPLACE; COMMENT: Revision, Dr Holder KNEE ARTHROSCOPY 02/10/2021 Left PROCEDURE: [place] ARTHROSCOPY AID [place] SPINE&/FX KNEE W/O FIXJ; COMMENT: Partial Medial Meniscectomy, Partial Synovectomy of Impinging Plica, Dr. Holder OTHER SURGICAL HISTORY 2000 PROCEDURE: [place] ANES CARDIAC ELECTROPHYSIOL STDY W/RF ABLATION BACK SURGERY 02/03/2018 PROCEDURE: HISTORICAL BACK SURGERY; COMMENT: Spine Stimulator ELBOW SURGERY 11/2011 Right PROCEDURE: HISTORICAL ELBOW SURGERY; COMMENT: Lateral Epicondylar Debridement, [facility] Medical History Medical History Date Comments Anxiety and depression DX:Anxiet y and depression Alcohol abuse DX:Alcohol abuse SVT (supraventricular tachyc ardia) (CMS/HCC V24) DX:SVT (supraventricular tac hycardia) ([facility]) Restless leg syndrome DX:Restles s leg syndrome Lumbar degenerative disc disease DX:Lumbar degenerative disc disease Drug abuse (CMS/HCC V24, CMS/HCC V28) DX:Drug abuse (HCC) Disorder of thyroid DX:Disorder of thyroid Arthropathy of right knee DX:Art hropathy of right knee Left medial knee pain DX:Left me dial knee pain Mild aortic stenosis DX:Mild aor tic stenosis Opioid use disorder DX:Opioid us e disorder Pneumonia DX:Pneumonia Right elbow tendonitis DX:Right elbow tendonitis Spinal cord stimulator dysfu nction (CMS/HCC V24) DX:Spinal cord stimulator dy sfunction ([facility]) Swelling of lower extremity DX:S welling of [...] Influencers of Health Screening 10/24/2022 COVID-19 Vaccine (1 - 2023-2 5 season) 2024 Influenza Vaccine (Season Ended) 2025 09/28/2022, 08/27/2021 HIB Vaccines Aged Out No longer [...] age to complete this topic Meningococcal B Vaccine Aged Out No l onger eligible based on patient's age to complete this topic RSV Immunization Patients Under 20 months Aged Out No longer eligible b ased on patient's age to complete this topic Varicella Vaccines Aged Out No longer eligible based on patient's age to complete this topic Care Teams Production Control Manager Relationship Specialty Start Date End Date Trevor Ahn NP [address], [place] PCP - General 09/22/21
== END 2025-03-08 11:19 | disposition home or self-care (01) ==
LOC: HO.HCC 10:24
PROVIDERS: PCP Nurse Practitioner Family; Visit Provider Internal Medicine
DX: Z51.81 Encounter for therapeutic drug level monitoring (principal); F11.90 Opioid use, unspecified, uncomplicated
CPT/HCPCS: 99213

== ENCOUNTER → 2025-03-08 10:23 | Outpatient (BNVA) | payer MEDICARE, MEDICAID, SELFPAY | PROVIDERS: PCP Nurse Practitioner Family; Visit Provider Internal Medicine | DX: F11.20 Opioid dependence, uncomplicated (principal); Z51.81 Encounter for therapeutic drug level monitoring | CPT/HCPCS: 80307; 99212 ==

== ENCOUNTER 2025-03-27 13:09 | Outpatient (AMB) | payer MEDICARE, MEDICAID, SELFPAY ==
[2025-03-27 13:13] VITALS: BP 124/70; PULSE 79; O2SAT 94; BMI 37.6
--- NOTE | 2025-03-27 13:13 | A.OFFPC_ITS ---
Vital Signs 03/27/25 13:13 Height 5 ft 7 in Weight 240 lb BMI 37.6 BP 124/70 Blood Pressure Location Lt brachial Position Sitting Pulse 79 Pulse Source Pulse Oximeter Pulse Oximetry (%) 94 Oxygen Delivery Method Room Air Intake Visit Reasons: f/u, med concerns, weight concerns Intake Note: Pt is here today for a follow up visit. Allergies effexor Allergy (Severe, Verified 03/27/25 13:13) shortness of breath escitalopram Allergy (Mild, Verified 03/27/25 13:13) rash Seasonal Allergies Allergy (Mild, Verified 03/27/25 13:13) rhinitis, watery eyes tramadol [TRAMADOL] Adverse Reaction (Intermediate, Verified 03/27/25 13:13) NAUSEA paroxetine [From PAXIL] Adverse Reaction (Mild, Verified 03/27/25 13:13) AGITATION Medication List - Last Reconciled 03/27/25 by MARY Novak-RICKI atorvastatin 20 mg PO BEDTIME 90 days buprenorphine-naloxone 8-2 mg 1 film buccal TID buprenorphine-naloxone 8-2 mg 3 film sublingual Q24H 30 days chlorthalidone 25 mg PO DAILY cholecalciferol (vitamin D3) 50 mcg PO DAILY compr.stocking,knee,long,x-lrg 20/ fluoxetine 60 mg (3 x 20 mg) PO QAM levothyroxine 112 mcg PO DAILY phentermine 15 mg PO DAILY 30 days trazodone 50 mg PO BEDTIME PRN Tobacco use date assessed: 03/27/25 Dental Screening Dental Screen Date: 03/27/25 Did you have a dental visit in the last 12 months?: No Did you have a dental problem in the last 6 months where you did not have access to dental care?: No Was dental information given to patient?: Patient declined HPI f/u, med concerns, weight concerns HPI Details Chief Complaint Concern over recent weight gain and related issues. History of Present Illness The patient is a 59-year-old female presenting for follow-up concerning weight gain. She reported being under considerable stress, taking care of her daughter who has issues and her three grandchildren. Despite this, she is maintaining her mental health and regularly sees a therapist, confirming no suicidal or homicidal ideations. She understands her condition of morbid obesity and expressed interest in exploring medical options to manage her weight. Social History - Family Status: Provides care for her radha stafford and three grandchildren, indicating significant familial commitments. - Stress: Experiencing a significant marisa unt of stress due to family responsibilities. Health Maintenance Review of Systems - General: Reports stress but coping. de nies any CP, increased SOB, dizziness, blurred vision - Psychological: Denies suicidal or homi cidal ideations; under the care of a therapist. Physical Exam General: Cooperative, healthy appearing, comfortable, no acute distress and well developed, morbidly obese Orientation: Patient oriented x3 Limitations: No limitations Head: Normal to inspection Ears: Hearing grossly normal bilaterally Nose: Normal external nose present Face and sinus: Normal facial exam Eyes: Appearance normal, both eyes and all related structures Neck: Normal visual inspection and Yes full ROM Respiratory: Normal respiratory effort and able to speak in complete sentences. Clear to auscultation bilaterally Cardiovascular: Regular rate and rhythm. Normal S1 and S2 (faint systolic murmur) GI: Normal to inspection. Soft to palpation and nontender Skin: No rashes or lesions noted Neuro: Patient oriented x3 Extremities: Normal to inspection Results Plan A low dose of phentermine has been prescribed to manage weight gain resulting from morbid obesity. The patient is aware of possible side effects, such as heart racing, and is advised to inform me immediately if they occur. Regular fol low-ups are arranged to monitor the patient's response to the treatment. Discussion Notes I discussed the initiation of phentermine therapy with the patient, highlighting its potential benefits in aiding weight loss. We reviewed the associated risks, particularly cardiovascular side effects like heart racing, and I emphasized the importance of reporting any adverse outcomes immediately. The patient consented to this course of action, understanding the necessity to discontinue the medication if side effects arise. I also provided guidance on monitoring her progress and understanding that regular check-ins would be critical for assessing the effectiveness and tolerance of the treatment plan. Patient Instructions - Take the prescribed low dose of phente rmine as directed. - Watch for any side effects, such as he art racing. - Stop taking phentermine immediately if side effects occur and contact me. - Make note of any changes in your healt h and feelings. - Follow up as scheduled. [facility] Medical History Opioid use Osteoarthritis of left knee Emphysema/COPD Hyperplastic colon polyp (~2018) Hyperlipemia History of supraventricular tachycardia Nicotine dependence, cigarettes, uncomplicated HTN (hypertension) Hypothyroid Arthropathy of right knee Spinal cord stimulator dysfunction Right elbow tendonitis Surgical History History of total left knee replacement History of Achilles tendon repair History of cardiac cath History of cardiac radiofrequency ablation S/P insertion of spinal cord stimulator History of colonoscopy History of right salpingo-oophorectomy History of tubal ligation History of left knee surgery History of total right knee replacement History of revision of total replacement of right knee joint History of back surgery Family History Father No problems noted. Mother Diabetes Mental health disorder Sister Mental health disorder Social History Household Members: Spouse and Family Household Members Other:: Mother Housing: Apartment Are you a primary manager primary care to a significant other at home: Yes (manager primary care for mother, and daughter to assist post-op) Do you presently have visiting nurse or other home services: No Patient Tobacco Use Status: Current everyday Tobacco user Tobacco use type: Cigarette Cigarettes Per Day: 6 Years Smoked: 43 e-Cigarette/Vaping Use: Currently Using Second Hand Smoke Exposure: No service: No Current occupational status: unemployed Current occupational exposures/hazards: No Cognitive needs: No Hearing needs: No Vision needs: No Questionnaire PHQ-9 Over the last 2 weeks, how often have you been bothered by any of the following problems? 1. Little interest or pleasure in doing things: several days 2. Feeling down, depressed, or hopeless: several days 3. Trouble falling or staying asleep, or sleeping too much: nearly every day 4. Feeling tired or having little energy: nearly every day 5. Poor appetite or overeating: nearly every day 6. Feeling bad about yourself - or that you are a failure or have let yourself or your family down: not at all 7. Trouble concentrating on things, such as reading the newspaper or watching television: more than half the days 8. Moving or speaking so slowly that other people could have noticed. Or the opposite - being so fidgety or restless that you have been moving around a lot more than usual: not at all 9. Thoughts that you would be better off or of hurting yourself in some way: not at all Total score: 13 Depression Screening Interpretation: Positive Depression Screening Done: Yes [id number] - PHQ-9 Billing: Yes Source: Developed by Drs. Miles Anguiano, Jennifer Hill, Xander Rodriguez and colleagues, with an educational jacqueline from [employer]. Thrive Questionnaire Date Thrive assessed: 03/27/25 I am a: Patient What is your living situation today?: I have a steady place to live Within the past 12 months, did the food you bought not last and you didn't have the money to get more?: Never true Within the past 12 months, did you worry whether your food would run out before you got money to buy more?: Never true Do you have trouble paying for medicines?: No Do you have trouble getting transportation to medical appointments?: No Do you have trouble paying your heating and electricity bill?: No Do you have trouble taking care of your child, family member or friend?: No Do you have trouble with day-to-day activities such as bathing, preparing meals, shopping, managing finances, etc.?: No Are you currently unemployed and looking for a job?: No Are you interested in more education?: No Please select the resources that you would like help with: None THRIVE Score: 0 AUDIT C Alcohol Use Questionnaire (AUDIT-C) 1. How often do you have a drink containing alcohol?: Never 3. How often do you have six or more drinks on one occasion?: Never Total Score: 0 JOAN-7 AMB Questionnaire JOAN-7 Date JOAN - 7 assessed: 03/27/25 Feeling nervous, anxious, or on edge: 3 = Nearly every day Not being able to stop or control worryin = Nearly every day Worrying too much about different things: 3 = Nearly every day Trouble relaxin = Nearly every day Being so restless that it is hard to sit still: 3 = Nearly every day Becoming easily annoyed or irritable: 3 = Nearly every day Feeling afraid as if something awful might happen: 3 = Nearly every day Total JOAN-7 score (0-4 normal; 5-9 mild; 10-14 moderate; 15-21 severe): 21 Source: Developed by DrsDaisy Anguiano, Jennifer Hill, Xander Rodriguez and colleagues, with an educational jacqueline from [employer]. JOAN-7 Assessment Billing JOAN-7 Assessment Tool: JOAN-7 Assessment 18648 Physical exam (Primary Care) Vital Signs: Last Vital Signs Pulse 79 03/27/25 13:13 BP 124/70 03/27/25 13:13 Pulse Ox 94 03/27/25 13:13 Oxygen Delivery Method Room Air 03/27/25 13:13 BMI result Body Mass Index 37.6 Tobacco/Smoking Status: Tobacco use Status Tobacco use date assessed 03/27/25 03/27/25 13:20 Patient Tobacco Use Status Current everyday Tobacco 03/27/25 13:13 Tobacco use type Cigarette 03/27/25 13:13 e-Cigarette/Vaping Use Currently Using 03/27/25 13:13 PHQ-9: PHQ-9 Score PHQ-9: Total score 13 03/27/25 13:59 Depression Screening Interpretation: Positive Thrive Assessment: Date of Thrive Assessment Date Thrive assessed 03/27/25 03/27/25 13:59 Coding Level of Care Code Est Pt Level 3 (82692) Diagnoses Hypothyroid E03.9 Weight gain R63.5 Additional Codes JOAN-7 Assessment Billing - JOAN-7 Assessment Tool: JOAN-7 Assessment 96001 ([id number]) PHQ-9 - 33462 - PHQ-9 Billing: Yes ([id number]) Assessment & Plan Assessment & Plan (1) Hypothyroid: Code(s): E03.9 - Hypothyroidism, unspecified Category: Medical (2) Weight gain: Code(s): R63.5 - Abnormal weight gain Category: Medical Plan . Orders: Orders TSH reflex Free T4 Today E03.9 - Hypothyroidism, unspecified, I10 - Essential (primary) hypertension, R63.5 - Abnormal weight gain Lipid Panel Today E03.9 - Hypothyroidism, unspecified, I10 - Essential (primary) hypertension, R63.5 - Abnormal weight gain Complete Blood Count Auto Diff Today E03.9 - Hypothyroidism, unspecified, I10 - Essential (primary) hypertension, R63.5 - Abnormal weight gain [employer] Panel Fast Today E03.9 - Hypothyroidism, unspecified, I10 - Essential (primary) hypertension, R63.5 - Abnormal weight gain UA CC w/rflx Micro + Cult Today E03.9 - Hypothyroidism, unspecified, I10 - Essential (primary) hypertension, R63.5 - Abnormal weight gain MM screening mammo BI Today Z12.31 - Encounter for screening mammogram for malignant neoplasm of breast Medications: New phentermine must administer 2 hours after breakfast 15 mg PO DAILY 30 caps 0RF 30 days
--- OUTSIDE RECORDS SUMMARY | 2025-03-27 13:26 | XMS_ITS | Clinical Summary ---
Author Organization [employer] [facility] ity Address [address] [place] [address] Care Team Providers Care Supervisor Airplane Flight Attendant Name Role Phone Trevor Ahn NP Primary Care Provider Surgical History Surgery Date Site/Laterality Comments TOTAL KNEE ARTHROPLASTY 06/18/2020 Right PROCEDURE: HISTORICAL TOTAL KNEE REPLACE; COMMENT: Revision, Dr Holder KNEE ARTHROSCOPY 02/10/2021 Left PROCEDURE: ID ARTHROSCOPY AID [place] SPINE&/FX KNEE W/O FIXJ; COMMENT: Partial Medial Meniscectomy, Partial Synovectomy of Impinging Plica, Dr. Holder OTHER SURGICAL HISTORY 2000 PROCEDURE: ID ANES CARDIAC ELECTROPHYSIOL STDY W/RF ABLATION BACK SURGERY 02/03/2018 PROCEDURE: HISTORICAL BACK SURGERY; COMMENT: Spine Stimulator ELBOW SURGERY 11/2011 Right PROCEDURE: HISTORICAL ELBOW SURGERY; COMMENT: Lateral Epicondylar Debridement, [facility] Medical History Medical History Date Comments Anxiety and depression DX:Anxiet y and depression Alcohol abuse DX:Alcohol abuse SVT (supraventricular tachyc ardia) (CMS/HCC V24) DX:SVT (supraventricular tac hycardia) ([facility]) Restless leg syndrome DX:Restles s leg [...] (CMS/HCC V24) DX:Spinal cord stimulator dy sfunction ([facility]) Swelling of lower extremity DX:S welling [...] age to complete this topic Care Teams Supervisor Airplane Flight Attendant Relationship Specialty Start Date End Date Trevor Ahn NP [address] [place], [place] PCP - General 09/22/21
== END 2025-03-27 13:48 | disposition home or self-care (01) ==
LOC: HO.HMCC 13:09
PROVIDERS: PCP Nurse Practitioner Family; Visit Provider Nurse Practitioner Family
DX: E03.9 Hypothyroidism, unspecified (principal); R63.5 Abnormal weight gain

== ENCOUNTER → 2025-03-27 13:09 | Outpatient (BNVA) | payer MEDICARE, MEDICAID, SELFPAY | PROVIDERS: PCP Nurse Practitioner Family; Visit Provider Nurse Practitioner Family | DX: E03.9 Hypothyroidism, unspecified (principal); R63.5 Abnormal weight gain | CPT/HCPCS: 96127; 99212 ==

== ENCOUNTER 2025-05-06 10:35 | Outpatient (AMB) | payer MEDICARE, MEDICAID, SELFPAY ==
--- NOTE | 2025-05-06 10:38 | MHC.OFFVIS ---
Vital Signs 05/06/25 10:40 Height 5 ft 7 in Pulse 90 Pulse Source Pulse Oximeter Pulse Oximetry (%) 97 Oxygen Delivery Method Room Air Intake Visit Reasons: MAT Allergies effexor Allergy (Severe, Verified 05/06/25 10:43) shortness of breath escitalopram Allergy (Mild, Verified 05/06/25 10:43) rash Seasonal Allergies Allergy (Mild, Verified 05/06/25 10:43) rhinitis, watery eyes tramadol (TRAMADOL) Adverse Reaction (Intermediate, Verified 05/06/25 10:43) NAUSEA paroxetine (From PAXIL) Adverse Reaction (Mild, Verified 05/06/25 10:43) AGITATION HPI HPI MAT: Details: She has no concerns PFSH Medical History Opioid use Osteoarthritis of left knee Emphysema/COPD Hyperplastic colon polyp (~2018) Hyperlipemia History of supraventricular tachycardia Nicotine dependence, cigarettes, uncomplicated HTN (hypertension) Hypothyroid Arthropathy of right knee Spinal cord stimulator dysfunction Right elbow tendonitis Surgical History History of total left knee replacement History of Achilles tendon repair History of cardiac cath History of cardiac radiofrequency ablation S/P insertion of spinal cord stimulator History of colonoscopy History of right salpingo-oophorectomy History of tubal ligation History of left knee surgery History of total right knee replacement History of revision of total replacement of right knee joint History of back surgery Family History Father No problems noted. Mother Diabetes Mental health disorder Sister Mental health disorder Social History Household Members: Spouse and Family Household Members Other:: Mother Housing: Apartment Are you a primary sub acute care nurse to a significant other at home: Yes (sub acute care nurse for mother, and daughter to assist post-op) Do you presently have visiting nurse or other home services: No Patient Tobacco Use Status: Current everyday Tobacco user Tobacco use type: Cigarette Cigarettes Per Day: 6 Years Smoked: 43 e-Cigarette/Vaping Use: Currently Using Second Hand Smoke Exposure: No service: No Current occupational status: unemployed Current occupational exposures/hazards: No Cognitive needs: No Hearing needs: No Vision needs: No Review of Systems Const All systems reviewed & are unremarkable except as noted in HPI and below Physical Exam Vital Signs: Last Vital Signs Pulse 90 05/06/25 10:40 Pulse Ox 97 05/06/25 10:40 Oxygen Delivery Method Room Air 05/06/25 10:40 Const General: cooperative Assessment & Plan Assessment & Plan (1) Opioid use disorder, moderate, in sustained remission: Comment: She is doing well Code(s): F11.21 - Opioid dependence, in remission Category: Medical Plan: She is doing well Plan continue same Medications: New buprenorphine-naloxone 8-2 mg (Suboxone) 1 film sublingual TID 90 ea 1RF 30 days Coding Level of Care Code Est Pt Level 3 (35388) Diagnoses Opioid use disorder, moderate, in sustained remission F11.21
[2025-05-06 10:40] VITALS: PULSE 90; O2SAT 97
--- OUTSIDE RECORDS SUMMARY | 2025-05-06 11:51 | XMS_ITS | Clinical Summary ---
Author Organization [facility] ity Address [address] [place] [address] Care Team Providers Care Release Engineer Name Role Phone Trevor Ahn NP Primary Care Provider Surgical History Surgery Date Site/Laterality Comments TOTAL KNEE ARTHROPLASTY 06/18/2020 Right PROCEDURE: HISTORICAL TOTAL KNEE REPLACE; COMMENT: Revision, Dr Holder KNEE ARTHROSCOPY 02/10/2021 Left PROCEDURE: [place] ARTHROSCOPY AID [place] SPINE&/FX KNEE W/O FIXJ; COMMENT: Partial Medial Meniscectomy, Partial Synovectomy of Impinging Plica, Dr. Holder OTHER SURGICAL HISTORY 2000 PROCEDURE: [place] ANES CARDIAC ELECTROPHYSIOL STDY W/RF ABLATION BACK SURGERY 02/03/2018 PROCEDURE: HISTORICAL BACK SURGERY; COMMENT: Spine Stimulator ELBOW SURGERY 11/2011 Right PROCEDURE: HISTORICAL ELBOW SURGERY; COMMENT: Lateral Epicondylar Debridement, [facility] Medical History Medical History Date Comments Anxiety and depression DX:Anxiet y and depression Alcohol abuse DX:Alcohol abuse SVT (supraventricular tachyc ardia) (CMS/HCC V24) DX:SVT (supraventricular tac hycardia) ([facility]) Restless leg syndrome DX:Restles s [...] (CMS/HCC V24) DX:Spinal cord stimulator dy sfunction ([facility]) Swelling of lower extremity DX:S [...] age to complete this topic Care Teams Release Engineer Relationship Specialty Start Date End Date Trevor Ahn NP [address] [place], [place] PCP - General 09/22/21
== END 2025-05-06 11:04 | disposition home or self-care (01) ==
LOC: HO.HCC 10:36
PROVIDERS: PCP Nurse Practitioner Family; Visit Provider Internal Medicine
DX: F11.21 Opioid dependence, in remission (principal)
CPT/HCPCS: 99213

== ENCOUNTER → 2025-05-06 10:35 | Outpatient (BNVA) | payer MEDICARE, MEDICAID, SELFPAY | PROVIDERS: PCP Nurse Practitioner Family; Visit Provider Internal Medicine | DX: F11.21 Opioid dependence, in remission (principal) | CPT/HCPCS: 99212 ==

== ENCOUNTER 2025-05-27 12:28 | Outpatient (REF) | payer MEDICARE, MEDICAID, SELFPAY ==
--- OUTSIDE RECORDS SUMMARY | 2025-05-27 13:23 | XMS_ITS | Clinical Summary ---
Author Organization [facility] ity Address [address] [place] [address] Care Team Providers Care Tinning Machine Set Up Operator Name Role Phone Trevor Ahn NP Primary Care Provider Surgical History Surgery Date Site/Laterality Comments TOTAL KNEE ARTHROPLASTY 06/18/2020 Right PROCEDURE: HISTORICAL TOTAL KNEE REPLACE; COMMENT: Revision, Dr Holder KNEE ARTHROSCOPY 02/10/2021 Left PROCEDURE: [place] ARTHROSCOPY AID [place] SPINE&/FX KNEE W/O FIXJ; COMMENT: Partial Medial Meniscectomy, Partial Synovectomy of Impinging Plica, Dr. Holder OTHER SURGICAL HISTORY 2000 PROCEDURE: [place] ANES CARDIAC ELECTROPHYSIOL STDY W/RF ABLATION BACK SURGERY 02/03/2018 PROCEDURE: HISTORICAL BACK SURGERY; COMMENT: Spine Stimulator ELBOW SURGERY 11/2011 Right PROCEDURE: HISTORICAL ELBOW SURGERY; COMMENT: Lateral Epicondylar Debridement, [facility] Medical History Medical History Date Comments Anxiety and depression DX:Anxiet y and depression Alcohol abuse DX:Alcohol abuse SVT (supraventricular tachyc ardia) (CMS/HCC V24) DX:SVT (supraventricular tac hycardia) ([facility]) Restless leg syndrome DX:Restles s leg [...] V24) DX:Spinal cord stimulator dy sfunction ([facility]) Swelling of lower extremity DX:S welling [...] 2023-2 5 season) 2024 Influenza Vaccine (#1) 2025 2, 08/27/2021 HIB Vaccines Aged Out No [...] age to complete this topic Care Teams Tinning Machine Set Up Operator Relationship Specialty Start Date End Date Trevor Ahn NP [address] [facility] [place] PCP - General 09/22/21
== END 2025-05-27 12:29 | disposition home or self-care (01) ==
LOC: HO.MAMMO 12:28
PROVIDERS: PCP Nurse Practitioner Family; Visit Provider Nurse Practitioner Family
DX: Z12.31 Encounter for screening mammogram for malignant neoplasm of breast (principal)
CPT/HCPCS: 77063; 77067

== ENCOUNTER → 2025-05-27 12:30 | Outpatient (BNV) | payer MEDICARE, MEDICAID, SELFPAY | PROVIDERS: PCP Nurse Practitioner Family; Visit Provider Internal Medicine | DX: Z12.31 Encounter for screening mammogram for malignant neoplasm of breast (principal) | CPT/HCPCS: 77063; 77067 ==

== ENCOUNTER 2025-07-04 11:31 | Outpatient (AMB) | payer MEDICARE, MEDICAID, SELFPAY ==
[2025-07-04 11:38] VITALS: BP 138/80; PULSE 96; O2SAT 97; BMI 37.0
--- NOTE | 2025-07-04 11:38 | A.OFFVIS_ITS ---
Vital Signs 07/04/25 11:38 Height 5 ft 7 in Weight 236 lb BMI 37.0 BP 138/80 Pulse 96 Pulse Oximetry (%) 97 Intake Visit Reasons: MAT Allergies effexor Allergy (Severe, Verified 07/04/25 12:25) shortness of breath escitalopram Allergy (Mild, Verified 07/04/25 12:25) rash Seasonal Allergies Allergy (Mild, Verified 07/04/25 12:25) rhinitis, watery eyes tramadol (TRAMADOL) Adverse Reaction (Intermediate, Verified 07/04/25 12:25) NAUSEA paroxetine (From PAXIL) Adverse Reaction (Mild, Verified 07/04/25 12:25) AGITATION HPI Comments Details: A 60-year-old female presents for a follow-up r/t ANUJ in remission with buprenorphine-naloxone 8-2 mg TID. Denies use of opioids, alcohol, and other substances. Reports coping with lumbar discomfort due to losing remote to implanted spinal stimulator and having difficulty getting correct paperwork sent from orthopedic office. T/w informed the patient a message will be sent to orthopedic office to facilitate communication process. [facility] Medical History (Updated 07/04/25 @ 13:23 by Trevor Ahn, [facility]) Left hand pain Opioid use Osteoarthritis of left knee Emphysema/COPD Hyperplastic colon polyp (~2018) Hyperlipemia History of supraventricular tachycardia Nicotine dependence, cigarettes, uncomplicated HTN (hypertension) Hypothyroid Arthropathy of right knee Spinal cord stimulator dysfunction Right elbow tendonitis Surgical History History of total left knee replacement History of Achilles tendon repair History of cardiac cath History of cardiac radiofrequency ablation S/P insertion of spinal cord stimulator History of colonoscopy History of right salpingo-oophorectomy History of tubal ligation History of left knee surgery History of total right knee replacement History of revision of total replacement of right knee joint History of back surgery Family History Father No problems noted. Mother Diabetes Mental health disorder Sister Mental health disorder Social History Household Members: Spouse and Family Household Members Other:: Mother Housing: Apartment Are you a primary ocular care aide to a significant other at home: Yes (ocular care aide for mother, and daughter to assist post-op) Do you presently have visiting nurse or other home services: No Patient Tobacco Use Status: Current everyday Tobacco user Tobacco use type: Cigarette Cigarettes Per Day: 6 Years Smoked: 43 e-Cigarette/Vaping Use: Currently Using Second Hand Smoke Exposure: No service: No Current occupational status: unemployed Current occupational exposures/hazards: No Cognitive needs: No Hearing needs: No Vision needs: No Review of Systems Const All systems reviewed & are unremarkable except as noted in HPI and below Physical Exam Vital Signs: Last Vital Signs Pulse 96 07/04/25 11:38 BP 138/80 07/04/25 11:38 Pulse Ox 97 07/04/25 11:38 BMI result Body Mass Index 37.0 Const General: cooperative and well groomed Orientation/consciousness: patient oriented x3 Neuro General: patient oriented x3 Assessment & Plan Assessment & Plan (1) Opioid use disorder, moderate, in sustained remission: Comment: She is doing well Code(s): F11.21 - Opioid dependence, in remission Category: Medical Plan The plan of care is to continue with the buprenorphine-naloxone 8-2 mg TID and follow up in three months or sooner if needed. Medications: Refilled buprenorphine-naloxone 8-2 mg (Suboxone) 1 film sublingual TID 90 ea 1RF 30 days Patient Instructions: - Continue with buprenorphine-naloxone as prescribed. - follow-up in 3 months or sooner if needed. - Call with questions, concerns, or to report side effects/new onset of symptoms to [facility]. - The patient verbalized understanding and agreed with plan of care. Coding Level of Care Code Est Pt Level 3 (86387) Diagnoses Opioid use disorder, moderate, in sustained remission F11.21
== END 2025-07-04 11:53 | disposition home or self-care (01) ==
LOC: HO.HCC 11:31
PROVIDERS: PCP Nurse Practitioner Family; Visit Provider Clinical Nurse Specialist Psychiatric/Mental Health
DX: F11.21 Opioid dependence, in remission (principal)
CPT/HCPCS: 99213

== ENCOUNTER → 2025-07-04 11:31 | Outpatient (BNVA) | payer MEDICARE, MEDICAID, SELFPAY | PROVIDERS: PCP Nurse Practitioner Family; Visit Provider Clinical Nurse Specialist Psychiatric/Mental Health | DX: M79.642 Pain in left hand (principal); F11.21 Opioid dependence, in remission | CPT/HCPCS: 99212 ==

== ENCOUNTER 2025-07-04 12:18 | Outpatient (AMB) | payer MEDICARE, MEDICAID, SELFPAY ==
--- NOTE | 2025-07-04 12:24 | MHC.OFFWIV ---
Intake Vital Signs 07/04/25 12:25 Height 5 ft 7 in Weight 236 lb BMI 37.0 BP 130/82 Blood Pressure Location Lt brachial Position Sitting Pulse 81 Pulse Source Pulse Oximeter Temp 98.1 F Temp Source Oral Pulse Oximetry (%) 97 Oxygen Delivery Method Room Air Intake Visit Reasons: EP LT hand numb, tingling, painful Patient Tobacco Use Status: Current everyday Tobacco user Allergies effexor Allergy (Severe, Verified 07/04/25 12:25) shortness of breath escitalopram Allergy (Mild, Verified 07/04/25 12:25) rash Seasonal Allergies Allergy (Mild, Verified 07/04/25 12:25) rhinitis, watery eyes tramadol (TRAMADOL) Adverse Reaction (Intermediate, Verified 07/04/25 12:25) NAUSEA paroxetine (From PAXIL) Adverse Reaction (Mild, Verified 07/04/25 12:25) AGITATION Do you need a note to return to daycare/school/sports/work: No HPI HPI Comments History of Present Illness Details 60 y/o Female patient who presents to the walk in clinic with c/o left Hand/Wrist pain associated with Numbness and tingling for 3 weeks. Reports that the symptoms are intermittent and worse at night-time to the point of not able to sleep. She has been taking Acetaminophen and Ibuprofen with no relief. Denies any injury or trauma to the hand/wrist. [facility] Medical History Opioid use Osteoarthritis of left knee Emphysema/COPD Hyperplastic colon polyp (~2018) Hyperlipemia History of supraventricular tachycardia Nicotine dependence, cigarettes, uncomplicated HTN (hypertension) Hypothyroid Arthropathy of right knee Spinal cord stimulator dysfunction Right elbow tendonitis Surgical History History of total left knee replacement History of Achilles tendon repair History of cardiac cath History of cardiac radiofrequency ablation S/P insertion of spinal cord stimulator History of colonoscopy History of right salpingo-oophorectomy History of tubal ligation History of left knee surgery History of total right knee replacement History of revision of total replacement of right knee joint History of back surgery Family History Father No problems noted. Mother Diabetes Mental health disorder Sister Mental health disorder Social History Household Members: Spouse and Family Household Members Other:: Mother Housing: Apartment Are you a primary continuum of care manager to a significant other at home: Yes (continuum of care manager for mother, and daughter to assist post-op) Do you presently have visiting nurse or other home services: No Patient Tobacco Use Status: Current everyday Tobacco user Tobacco use type: Cigarette Cigarettes Per Day: 6 Years Smoked: 43 e-Cigarette/Vaping Use: Currently Using Second Hand Smoke Exposure: No service: No Current occupational status: unemployed Current occupational exposures/hazards: No Cognitive needs: No Hearing needs: No Vision needs: No Review of Systems Const All systems reviewed & are unremarkable except as noted in HPI and below Physical Exam Vital Signs: Last Vital Signs Temp 98.1 F 07/04/25 12:25 Pulse 81 07/04/25 12:25 BP 130/82 07/04/25 12:25 Pulse Ox 97 07/04/25 12:25 Oxygen Delivery Method Room Air 07/04/25 12:25 BMI result Body Mass Index 37.0 Const General: no acute distress Nutritional Appearance: obese Orientation/consciousness: patient oriented x3 Neuro General: patient oriented x3, gait normal and moves all extremities Extrem Right upper extremity: normal to inspection and full ROM Left upper extremity: wrist and hand Details: normal to inspection, normal capillary refill, tenderness Location: of the dorsal hand, normal ROM of fingers and no swelling; no unusual warmth and no crepitus Psych Speech and movement: Normal speech and movement present Assessment & Plan Assessment & Plan (1) Left hand pain: Code(s): M79.642 - Pain in left hand Plan: No clear Etiology at this time. Declined Imaging for now Ordered Prednisone for 10 days. Will ask PCP if he would consinder ordering EMG testing due to Numbness/tingling. Medications: New prednisone 20 mg PO DAILY 10 tabs 0RF M79.642 - Pain in left hand Coding Level of Care Code Est Pt Level 4 (93859) Diagnoses Left hand pain M79.642 Time Spent (min) 20
[2025-07-04 12:25] VITALS: BP 130/82; PULSE 81; TEMP 36.7; O2SAT 97; BMI 37.0
== END 2025-07-04 13:35 | disposition home or self-care (01) ==
PROVIDERS: PCP Nurse Practitioner Family; Visit Provider Nurse Practitioner Family
DX: M79.642 Pain in left hand (principal)

== ENCOUNTER 2025-07-31 10:06 | Outpatient (REF) | payer MEDICARE, MEDICAID, SELFPAY ==
--- NOTE | ~2025-07-31 | CT_ITS ---
EXAMINATION: CT LOW-DOSE SCREENING CHEST WITHOUT CONTRAST CLINICAL INFORMATION: 60-year-old female, current smoker, 43 pack years, lung cancer screening. COMPARISON: 05/30/2024, 05/13/2023. TECHNIQUE: Multidetector volumetric CT imaging of the chest is performed on a Siemens SOMATOM Definition scanner without contrast using low dose technique. Additional 2D coronal and sagittal reformatted images and axial 3D maximum intensity projection (MIP) images are generated on the CT workstation. This CT examination was performed using dose optimization techniques as appropriate, variously including the following: *Automated exposure control *Adjustment of mA and/or kV according to patient size (this includes techniques or standardized protocols for targeted exams where dose is matched to indication/reason for exam; i.e. extremities or head) *Use of iterative reconstruction technique PULMONARY NODULES: -A few scattered 2-3 mm nodules are unchanged in both lungs, some which are calcified. -4 mm nodule posterior left upper lobe near the apex is unchanged (series 5, image 24). -4 mm groundglass nodule posterior right middle lobe previously seen is no longer evident. -No new or enlarging nodules. LUNGS: -There is mild to moderate centrilobular and paraseptal emphysema with upper lobe predominance. There are a few biapical subpleural blebs. -There are centrilobular groundglass nodules clustered in the superior right upper lobe, and superolateral left apex, similar but improved from the prior exam, highly suggestive of inflammatory/infectious etiology. -There are no consolidations or large groundglass opacities. No interstitial lung disease. -Small airways appear normal. -The trachea and central airways are patent. MEDIASTINUM: -Aorta is mild to moderately calcified but normal in caliber. There is no aneurysm. -Main pulmonary artery is visually slightly prominent but normal in measurement. -No abnormal lymphadenopathy is present in the mediastinum or hilum. -Esophagus appears normal. Probable small type I hiatus hernia. -Heart size is normal. No pericardial effusion. CORONARY ARTERY CALCIFICATION: Mild circumflex, RCA, and LAD calcification. THYROID GLAND: Partially imaged, normal. CHEST WALL/AXILLA: No masses or abnormal lymph nodes. UPPER ABDOMEN: -1.5 cm segment 2 liver cyst is present. -There is a 9 mm medial segment 5/8 cyst. -Remainder of the upper abdominal structures appear normal allowing for low dose technique. OSSEOUS STRUCTURES: No suspicious lytic or blastic bone lesions. -Spinal stimulator leads terminate in the dorsal epidural space spanning T8-T9. -Mild degenerative spinal changes are present. CT/CT lung screening IMPRESSION: 1. Stable scattered pulmonary nodules measuring up to 4 mm in the left posterior apex. No new suspicious nodules or enlarging nodules are evident. 2. Bprf-ov-aufvthus paraseptal and centrilobular emphysema with upper lobe predominance. 3. Grouped centrilobular groundglass nodules in both upper lobes, upper aspects, in keeping with inflammatory/infectious etiology. These have improved significantly since the prior study. 4. Additional ancillary findings as discussed in the body of the report. ASSESSMENT: 1. Lung-RADS Category 2: Benign appearance or behavior of nodules. 2. Lung-RADS Category S: None. RECOMMENDATION: Continued routine annual low-dose CT lung screening in 1 year is recommended. An order for CT CHEST LOW DOSE CANCER SCREENING ([id number]) can be placed. Electronically signed by: Zafar Javier MD 07/31/2025 10:50 AM EDT
--- OUTSIDE RECORDS SUMMARY | 2025-07-31 12:18 | XMS_ITS | Clinical Summary ---
Author Organization [employer] [facility] ity Address [address] [place] [address] Care Team Providers Care Credit Union Field Examiner Name Role Phone Trevor Ahn NP Primary Care Provider [phone] Surgical History Surgery Date Site/Laterality Comments TOTAL KNEE ARTHROPLASTY 06/18/2020 Right PROCEDURE: HISTORICAL TOTAL KNEE REPLACE; COMMENT: Revision, Dr Holder KNEE ARTHROSCOPY 02/10/2021 Left PROCEDURE: [place] ARTHROSCOPY AID [place] SPINE&/FX KNEE W/O FIXJ; COMMENT: Partial Medial Meniscectomy, Partial Synovectomy of Impinging Plica, Dr. Holder OTHER SURGICAL HISTORY 2000 PROCEDURE: [place] ANES CARDIAC ELECTROPHYSIOL STDY W/RF ABLATION BACK SURGERY 02/03/2018 PROCEDURE: HISTORICAL BACK SURGERY; COMMENT: Spine Stimulator ELBOW SURGERY 11/2011 Right PROCEDURE: HISTORICAL ELBOW SURGERY; COMMENT: Lateral Epicondylar Debridement, [facility] Medical History Medical History Date Comments Anxiety and depression DX:Anxiet y and depression Alcohol abuse DX:Alcohol abuse SVT (supraventricular tachyc ardia) (CMS/HCC V24) DX:SVT (supraventricular tac hycardia) ([facility]) Restless leg syndrome DX:Restles s leg syndrome [...] (CMS/HCC V24) DX:Spinal cord stimulator dy sfunction ([facility]) Swelling of lower extremity DX:S welling of [...] Panel) 10/24/2022 Colorectal Cancer Screening: Colonoscopy 10/24/2022 HIV Screening 10/24/2022 Hepatitis C Screening 10/24/2022 Social Influencers of Health Screening 10/24/2022 Depression Screening 11/14/2024 COVID-19 Vaccine (1 - 2023-2 5 season) 2025 Influenza Vaccine (#1) 2025 2, 08/27/2021 RSV Immunization Adult Patients (1 - 1-dose 75+ series) 2041 HIB Vaccines Aged Out No longer eligi [...] age to complete this topic Care Teams Credit Union Field Examiner Relationship Specialty Start Date End Date [facility] [address] [facility] [place] PCP - General 09/22/21
== END 2025-07-31 10:07 | disposition home or self-care (01) ==
LOC: HO.CT 10:06
PROVIDERS: PCP Nurse Practitioner Family; Visit Provider Physician Assistant Medical
DX: Z12.2 Encounter for screening for malignant neoplasm of respiratory organs (principal); F17.210 Nicotine dependence, cigarettes, uncomplicated
CPT/HCPCS: 71271

== ENCOUNTER → 2025-07-31 10:08 | Outpatient (BNV) | payer MEDICARE, MEDICAID, SELFPAY | PROVIDERS: PCP Nurse Practitioner Family; Visit Provider Radiology Diagnostic Radiology | DX: F17.210 Nicotine dependence, cigarettes, uncomplicated (principal) | CPT/HCPCS: 71271 ==

== ENCOUNTER 2025-08-27 10:14 | Outpatient (REF) | payer MEDICARE, MEDICAID, SELFPAY ==
--- NOTE | 2025-08-27 10:22 | EMG_ITS ---
Chief complaint: Numbness of left hand Reason for referral: R20.0 Anesthesia of skin, Evaluate for CTS, Neuropathy, Radiculopathy Referred by: Trevor Ahn NP Procedure done: Left upper extremity NCS / EMG Left median and ulnar motor studies were performed. Left median and ulnar mixed sensory studies were performed in radial sensory study was performed. EMG needle examination was performed but this was limited because of the artifact created by spinal cord stimulator. Left median motor distal latencies was moderately prolonged. Left median mixed distal latency was moderately prolonged with slow conduction velocity. Impression: 1. [id number] left median neuropathy across carpal tunnel 2. Radiculopathy could not be definitively ruled out because of the electrical artifact created by spinal cord stimulator limiting interpretation of EMG. MTDD
--- OUTSIDE RECORDS SUMMARY | 2025-08-27 11:56 | XMS_ITS | Clinical Summary ---
Author Organization [facility] ity Address [address] [place] [address] Care Team Providers Care Oven Dauber Name Role Phone Trevor Ahn NP Primary Care Provider Surgical History Surgery Date Site/Laterality Comments TOTAL KNEE ARTHROPLASTY 06/18/2020 Right PROCEDURE: HISTORICAL TOTAL KNEE REPLACE; COMMENT: Revision, Dr Holder KNEE ARTHROSCOPY 02/10/2021 Left PROCEDURE: MO ARTHROSCOPY AID TX SPINE&/FX KNEE W/O FIXJ; COMMENT: Partial Medial Meniscectomy, Partial Synovectomy of Impinging Plica, Dr. Holder OTHER SURGICAL HISTORY 2000 PROCEDURE: MO ANES CARDIAC ELECTROPHYSIOL STDY W/RF ABLATION BACK SURGERY 02/03/2018 PROCEDURE: HISTORICAL BACK SURGERY; COMMENT: Spine Stimulator ELBOW SURGERY 11/2011 Right PROCEDURE: HISTORICAL ELBOW SURGERY; COMMENT: Lateral Epicondylar Debridement, [facility] Medical History Medical History Date Comments Anxiety and depression DX:Anxiet y and depression Alcohol abuse DX:Alcohol abuse SVT (supraventricular tachyc ardia) (CMS/HCC V24) DX:SVT (supraventricular tac hycardia) ([facility]) Restless leg syndrome DX:Restles s leg syndrome [...] (CMS/HCC V24) DX:Spinal cord stimulator dy sfunction ([facility]) Swelling of lower extremity DX:S welling of [...] Last Done Comments Breast Cancer Screening 1966 Colorectal Cancer Screening: Colonoscopy 1966 DTaP,Tdap,and Td Vaccines (1 - Tdap) 1985 Hepatitis B Vaccines (1 of 3 - 19+ 3-dose series) 1985 Cervical Cancer Screening: P ap Smear 1987 Zoster Vaccines (1 of 2) 2016 Pneumococcal Vaccine: 50+ Years (2 of 2 - PCV) 08/27/2022 08/27/2021 Cholesterol Screening (Lipid Panel) 10/24/2022 HIV Screening 10/24/2022 Hepatitis C Screening 10/24/2022 Social Influencers of Health Screening 10/24/2022 Depression Screening 11/14/2024 COVID-19 Vaccine ( - 2023-2 5 season) 2025 Influenza Vaccine [...] age to complete this topic Care Teams Oven Dauber Relationship Specialty Start Date End Date Trevor Ahn NP [address], [place] PCP - General 09/22/21
== END 2025-08-27 10:15 | disposition home or self-care (01) ==
LOC: HO.NEURO 10:14
PROVIDERS: PCP Nurse Practitioner Family; Visit Provider Nurse Practitioner Family
DX: R20.0 Anesthesia of skin (principal)
CPT/HCPCS: 95886; 95909

== ENCOUNTER → 2025-08-27 10:22 | Outpatient (BNV) | payer MEDICARE, MEDICAID, SELFPAY | PROVIDERS: PCP Nurse Practitioner Family; Visit Provider Psychiatry & Neurology Neurology | DX: G56.02 Carpal tunnel syndrome, left upper limb (principal) | CPT/HCPCS: 95886; 95909 ==

== ENCOUNTER 2025-09-02 09:50 | Outpatient (AMB) | payer MEDICARE, MEDICAID, SELFPAY ==
[2025-09-02 09:54] VITALS: PULSE 96; O2SAT 99; BMI 37.3
--- NOTE | 2025-09-02 09:54 | A.OFFVIS_ITS ---
Vital Signs 09/02/25 09:54 Height 5 ft 7 in Weight 238 lb BMI 37.3 Pulse 96 Pulse Source Pulse Oximeter Pulse Oximetry (%) 99 Oxygen Delivery Method Room Air Intake Visit Reasons: MAT Allergies effexor Allergy (Severe, Verified 09/02/25 10:01) shortness of breath escitalopram Allergy (Mild, Verified 09/02/25 10:01) rash Seasonal Allergies Allergy (Mild, Verified 09/02/25 10:01) rhinitis, watery eyes tramadol (TRAMADOL) Adverse Reaction (Intermediate, Verified 09/02/25 10:01) NAUSEA paroxetine (From PAXIL) Adverse Reaction (Mild, Verified 09/02/25 10:01) AGITATION HPI Comments Details: History of Present Illness The patient is a 60-year-old female presenting for a follow-up related to Opioid Use Disorder. Her current treatment with buprenorphine/naloxone at 8/2 mg, administered three times daily, has been effective, and she wishes to maintain this regime due to its satisfactory management of her condition. The patient reports increased stress stemming from the possibility of a divorce from her ; however, she denies depression, suicidality, and homicidal thoughts. The patient?s overall health is stable, with vital signs remaining within normal ranges, and she reports no issues with constipation or gastrointestinal disturbances. She manages her stress through therapeutic interventions and is planning a [employer] cruise with her daughters. She will continue to follow up with her therapist regularly to address her emotional wellbeing and interpersonal matters. Review of Systems - Psychological: Denies depression, suicidal ideation, and homicidal ideation. - Gastrointestinal: Denies constipation. - General: Reports increased stress. Physical Exam - Vitals- Stable. Results Plan Patient was informed and verbally consented to the use of an ambient scribe for clinic note documentation during this visit. 1. Opioid use, unspecified, uncomplicated F11.90 The patient continues treatment with buprenorphine/naloxone at 8/2 mg three times daily. Current therapy provides effective management, with no expressed need to alter dosing despite existing life stressors. Emphasis remains on medication adherence, with alignment to obtain the appropriate refill to sustain the treatment course. Continuing follow-up with her therapist offers supplementary psychological support. 2. Stress Related To Possible Divorce Stress concerning marital issues is acknowledged and mitigated through ongoing therapeutic counseling. Emotional support is deemed sufficient at present, with no additional pharmacological intervention necessary. Continued engagement with regular therapy sessions will provide further coping strategy reinforcement. Discussion Notes During the consultation, I discussed with the patient the effectiveness of her current Opioid Use Disorder treatment with buprenorphine/naloxone, which she confirms is managing her symptoms well. We reviewed her stress related to a potential divorce, agreeing that her ongoing therapy is a suitable approach to manage emotional challenges. The importance of adherence to her medication regimen was emphasized, along with the arrangement for a follow-up in two months to evaluate ongoing care needs and consider any changes. Medical Decision Making The patient's treatment with buprenorphine/naloxone remains effective, and given her stable response, continuation without adjustment is indicated. The stress stemming from personal circumstances is acknowledged, and supportive psychotherapy is considered adequate at this junction. Regular therapeutic engagement is expected to alleviate emotional concerns. Revisiting her therapeutic needs and medication efficacy in two months will determine whether additional interventions are warranted. Patient Instructions - Continue taking buprenorphine/naloxone as prescribed. - Attend all scheduled therapy sessions for stress management. - Return for a follow-up visit in two months. - Report any changes in mood or symptoms to healthcare provider promptly. - Keep medication securely stored and away from others. [facility] Medical History (Updated 08/29/25 @ 14:38 by Trevor Ahn, [facility]) Left hand pain Opioid use Osteoarthritis of left knee Emphysema/COPD Hyperplastic colon polyp (~2018) Hyperlipemia History of supraventricular tachycardia Nicotine dependence, cigarettes, uncomplicated HTN (hypertension) Hypothyroid Arthropathy of right knee Spinal cord stimulator dysfunction Right elbow tendonitis Surgical History History of total left knee replacement History of Achilles tendon repair History of cardiac cath History of cardiac radiofrequency ablation S/P insertion of spinal cord stimulator History of colonoscopy History of right salpingo-oophorectomy History of tubal ligation History of left knee surgery History of total right knee replacement History of revision of total replacement of right knee joint History of back surgery Family History Father No problems noted. Mother Diabetes Mental health disorder Sister Mental health disorder Social History Household Members: Spouse and Family Household Members Other:: Mother Housing: Apartment Are you a primary care worker to a significant other at home: Yes (care worker for mother, and daughter to assist post-op) Do you presently have visiting nurse or other home services: No Patient Tobacco Use Status: Current everyday Tobacco user Tobacco use type: Cigarette Cigarettes Per Day: 6 Years Smoked: 43 e-Cigarette/Vaping Use: Currently Using Second Hand Smoke Exposure: No service: No Current occupational status: unemployed Current occupational exposures/hazards: No Cognitive needs: No Hearing needs: No Vision needs: No Physical Exam Vital Signs: Last Vital Signs Pulse 96 09/02/25 09:54 Pulse Ox 99 09/02/25 09:54 Oxygen Delivery Method Room Air 09/02/25 09:54 BMI result Body Mass Index 37.3 Assessment & Plan Assessment & Plan (1) Opioid use disorder, moderate, in sustained remission: Comment: She is doing well Code(s): F11.21 - Opioid dependence, in remission Category: Medical Plan: na Plan na Medications: New buprenorphine-naloxone 8-2 mg (Suboxone) 1 film sublingual TID 90 ea 1RF 30 days buprenorphine-naloxone 8-2 mg (Suboxone) 1 film sublingual TID 90 ea 1RF 30 days Coding Level of Care Code Est Pt Level 3 (03618) Diagnoses Opioid use disorder, moderate, in sustained remission F11.21
== END 2025-09-02 10:34 | disposition home or self-care (01) ==
LOC: HO.HCC 09:50
PROVIDERS: PCP Nurse Practitioner Family; Visit Provider Internal Medicine
DX: F11.21 Opioid dependence, in remission (principal)
CPT/HCPCS: 99213

== ENCOUNTER → 2025-09-02 09:50 | Outpatient (BNVA) | payer MEDICARE, MEDICAID, SELFPAY | PROVIDERS: PCP Nurse Practitioner Family; Visit Provider Internal Medicine | DX: F11.21 Opioid dependence, in remission (principal) | CPT/HCPCS: 99212 ==

== ENCOUNTER 2025-09-04 12:54 | Outpatient (AMB) | payer MEDICARE, MEDICAID, SELFPAY ==
--- NOTE | 2025-09-04 13:08 | AM.OFFWIN_ITS ---
Intake Vital Signs 09/04/25 13:09 Height 5 ft 7 in Weight 238 lb BMI 37.3 BP 120/82 Blood Pressure Location Lt brachial Position Sitting Pulse 74 Pulse Source Pulse Oximeter Temp 98.6 F Temp Source Oral Pulse Oximetry (%) 97 Oxygen Delivery Method Room Air Intake Visit Reasons: EP Right ankle swelling/pain Intake Note: pt presents with right ankle pain and swelling since yesterday. aslo c/o itchy skin to right arm and behind rt ear on/off 6 mo Patient Tobacco Use Status: Current everyday Tobacco user Allergies effexor Allergy (Severe, Verified 09/04/25 13:11) shortness of breath escitalopram Allergy (Mild, Verified 09/04/25 13:11) rash Seasonal Allergies Allergy (Mild, Verified 09/04/25 13:11) rhinitis, watery eyes tramadol (TRAMADOL) Adverse Reaction (Intermediate, Verified 09/04/25 13:11) NAUSEA paroxetine (From PAXIL) Adverse Reaction (Mild, Verified 09/04/25 13:11) AGITATION Do you need a note to return to daycare/school/sports/work: Yes HPI HPI Comments History of Present Illness Details History of Present Illness - The patient is a 60-year-old female pr esenting with a right ankle injury and a rash on the arm and neck. - Ankle Injury: The patient reported twi sting her right ankle last night while trying to avoid a fall, resulting in pain and tenderness. She has been able to walk on it, although it is painful. - She has not taken any medication or ap plied any treatment prior to the visit. - Rash: The patient has developed a rash on her arm and neck, characterized by itching and small bumps. She has tried Benadryl, which provided temporary relief. - She denies any new lotions, perfumes, medications or clothing that could have caused the rash. Review of Systems - Musculoskeletal: Reports right ankle p ain and tenderness. - Dermatological: Reports itching and ra sh on arm and neck. All systems reviewed and are unremarkable except as noted in HPI Physical Exam General: Cooperative, healthy appearing, comfortable, no acute distress and well developed Orientation: Patient oriented x3 Limitations: No limitations Head: Normal to inspection Ears: Hearing grossly normal bilaterally Nose: Normal External nose present Face and sinus: Normal facial exam Eyes: Appearance normal, both eyes and all related structures Neck: Normal visual inspection and Yes full ROM Respiratory: Normal respiratory effort and able to speak in complete sentences. Skin: scant pinpoint papular rash noted on right forearm and posterior neck Neuro: Patient oriented x3 Extremities: Right ankle with no TTP posterior or medial malleolus, edema lateral side over ATFL, no pain on Achilles tendon or remainder of foot, no skin changes, no ecchymosis, full ROM with some pain. [facility] Medical History (Updated 09/04/25 @ 13:40 by Mayuir Lau PA-C) Left hand pain Opioid use Osteoarthritis of left knee Emphysema/COPD Hyperplastic colon polyp (~2018) Hyperlipemia History of supraventricular tachycardia Nicotine dependence, cigarettes, uncomplicated HTN (hypertension) Hypothyroid Arthropathy of right knee Spinal cord stimulator dysfunction Right elbow tendonitis Surgical History History of total left knee replacement History of Achilles tendon repair History of cardiac cath History of cardiac radiofrequency ablation S/P insertion of spinal cord stimulator History of colonoscopy History of right salpingo-oophorectomy History of tubal ligation History of left knee surgery History of total right knee replacement History of revision of total replacement of right knee joint History of back surgery Family History Father No problems noted. Mother Diabetes Mental health disorder Sister Mental health disorder Social History Household Members: Spouse and Family Household Members Other:: Mother Housing: Apartment Are you a primary neurocritical care physician to a significant other at home: Yes (neurocritical care physician for mother, and daughter to assist post-op) Do you presently have visiting nurse or other home services: No Patient Tobacco Use Status: Current everyday Tobacco user Tobacco use type: Cigarette Cigarettes Per Day: 6 Years Smoked: 43 e-Cigarette/Vaping Use: Currently Using Second Hand Smoke Exposure: No service: No Current occupational status: unemployed Current occupational exposures/hazards: No Cognitive needs: No Hearing needs: No Vision needs: No Physical Exam Vital Signs: Last Vital Signs Temp 98.6 F 09/04/25 13:09 Pulse 74 09/04/25 13:09 BP 120/82 09/04/25 13:09 Pulse Ox 97 09/04/25 13:09 Oxygen Delivery Method Room Air 09/04/25 13:09 BMI result Body Mass Index 37.3 Assessment & Plan Assessment & Plan (1) Sprain of right ankle: Code(s): S93.401A - Sprain of unspecified ligament of right ankle, initial encounter Qualifiers: Encounter type: initial encounter Involved ligament of ankle: anterior talofibular ligament Qualified Code(s): S93.491A - Sprain of other ligament of right ankle, initial encounter Plan: Plan Patient was informed and verbally consented to the use of an ambient scribe for clinic note documentation during this visit. Ankle Sprain - Applied an MAREK bandage initially but pt preferred walking boot for support, recommended she wean herself off of the boot over the next 1-2 weeks and do daily [id number] exercises so she does not end up with a frozen joint. - The patient is advised to rest, ice, and take anti-inflammatory medication such as ibuprofen. - Follow up with PCP if no improvement in your symptoms over the next 3-4 weeks however an ankle sprain can take 2-3 months to fully recover. (2) Allergic dermatitis: Code(s): L23.9 - Allergic contact dermatitis, unspecified cause Plan: - Rash On Arm And Neck, likely contact dermatitis. - The patient is advised to continue using Benadryl and start Pepcid for antihistamine effects. - A topical steriod lotion will be prescribed and sent to the pharmacy for symptomatic relief. - If symptoms persist, follow-up with a primary care physician is recommended. Medications: New triamcinolone acetonide 0.1% 1 appl topical BID 30 grams 0RF Coding Level of Care Code Est Pt Level 4 (79808) Diagnoses Sprain of anterior talofibular ligament of right ankle, initial encounter S93.491A Encounter type: initial encounter Involved ligament of ankle: anterior talofibular ligament Allergic dermatitis L23.9
[2025-09-04 13:09] VITALS: BP 120/82; PULSE 74; TEMP 37; O2SAT 97; BMI 37.3
--- OUTSIDE RECORDS SUMMARY | 2025-09-04 17:55 | XMS_ITS | Clinical Summary ---
Author Organization [facility] [place] [facility] ity Address [address] [place] [address] Care Team Providers Care Stucco Mason Name Role Phone Trevor Ahn NP Primary Care Provider Surgical History Surgery Date Site/Laterality Comments TOTAL KNEE ARTHROPLASTY 06/18/2020 Right PROCEDURE: HISTORICAL TOTAL KNEE REPLACE; COMMENT: Revision, Dr Holder KNEE ARTHROSCOPY 02/10/2021 Left PROCEDURE: OR ARTHROSCOPY AID TX SPINE&/FX KNEE W/O FIXJ; COMMENT: Partial Medial Meniscectomy, Partial Synovectomy of Impinging Plica, Dr. Holder OTHER SURGICAL HISTORY 2000 PROCEDURE: [place] ANES CARDIAC ELECTROPHYSIOL STDY W/RF ABLATION BACK SURGERY 02/03/2018 PROCEDURE: HISTORICAL BACK SURGERY; COMMENT: Spine Stimulator ELBOW SURGERY 11/2011 Right PROCEDURE: HISTORICAL ELBOW SURGERY; COMMENT: Lateral Epicondylar Debridement, [facility] Medical History Medical History Date Comments Anxiety and depression DX:Anxiet y and depression Alcohol abuse DX:Alcohol abuse SVT (supraventricular tachyc ardia) (CMS/HCC V24) DX:SVT (supraventricular tac hycardia) ([facility]) Restless leg syndrome DX:Restles s leg syndrome [...] (CMS/HCC V24) DX:Spinal cord stimulator dy sfunction ([facility]) Swelling of lower extremity DX:S welling of [...] age to complete this topic Care Teams Stucco Mason Relationship Specialty Start Date End Date Trevor Ahn NP [address] [place], [place] PCP - General 09/22/21
== END 2025-09-04 13:36 | disposition home or self-care (01) ==
PROVIDERS: PCP Nurse Practitioner Family; Visit Provider Physician Assistant
DX: S93.491A Sprain of other ligament of right ankle, initial encounter (principal); L23.9 Allergic contact dermatitis, unspecified cause

== ENCOUNTER → 2025-09-04 12:54 | Outpatient (BNVA) | payer MEDICARE, MEDICAID, SELFPAY | PROVIDERS: PCP Nurse Practitioner Family; Visit Provider Physician Assistant | DX: S93.401A Sprain of unspecified ligament of right ankle, initial encounter (principal); L23.9 Allergic contact dermatitis, unspecified cause; X58.XXXA Exposure to other specified factors, initial encounter; Y93.9 Activity, unspecified; Y92.9 Unspecified place or not applicable; Y99.9 Unspecified external cause status | CPT/HCPCS: 99212 ==

== ENCOUNTER 2025-10-09 12:31 | Outpatient (AMB) | payer MEDICARE, MEDICAID, SELFPAY ==
[2025-10-09 12:33] VITALS: BP 120/82; PULSE 87; RESP 16; O2SAT 97; BMI 37.3
--- NOTE | 2025-10-09 12:33 | A.OFFPC_ITS ---
Vital Signs 10/09/25 12:33 Height 5 ft 7 in Weight 238 lb BMI 37.3 BP 120/82 Blood Pressure Location Lt brachial Position Sitting Respiration 16 Pulse 87 Pulse Oximetry (%) 97 Oxygen Delivery Method Room Air Intake Visit Reasons: PE Burning Supervisor Required: No Allergies effexor Allergy (Severe, Verified 10/09/25 13:28) shortness of breath escitalopram Allergy (Mild, Verified 10/09/25 13:28) rash Seasonal Allergies Allergy (Mild, Verified 10/09/25 13:28) rhinitis, watery eyes tramadol (TRAMADOL) Adverse Reaction (Intermediate, Verified 10/09/25 13:28) NAUSEA paroxetine (From PAXIL) Adverse Reaction (Mild, Verified 10/09/25 13:28) AGITATION Medication List - Last Reconciled 10/09/25 by MARY Novak-RICKI atorvastatin 20 mg PO BEDTIME 90 days buprenorphine-naloxone 8-2 mg (Suboxone) 1 film sublingual TID 30 days buprenorphine-naloxone 8-2 mg (Suboxone) 1 film sublingual TID 30 days buprenorphine-naloxone 8-2 mg (Suboxone) 1 film sublingual TID 30 days chlorthalidone 25 mg PO DAILY cholecalciferol (vitamin D3) 50 mcg PO DAILY compr.stocking,knee,long,x-lrg 20 fluoxetine 60 mg (3 x 20 mg) PO QAM levothyroxine 112 mcg PO DAILY phentermine 15 mg PO DAILY 30 days trazodone 50 mg PO BEDTIME PRN triamcinolone acetonide 0.1% 1 appl topical BID Tobacco use date assessed: 03/27/25 Dental Screening Dental Screen Date: 03/27/25 HPI PE HPI Details History of Present Illness The patient is a 60 year old individual presenting for a physical exam. The patient's colon screening is up to date. 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 The patient sees a skiver uppers or linings for this condition. The patient reports numbness in the left hand, which is clinically suggestive of carpal tunnel syndrome. The patient is taking phentermine, which initially helped significantly with weight management but is now less effective. In terms of health maintenance, the patient is due for a mammogram and a Pap smear, though the CERTIFIED MEDICAL CODING SPECIALIST has previously canceled appointments. she is part of our LDCT program has a spinal stimulator, sees pain management Health Maintenance The patient is due for a mammogram, and an order for this will be placed. The patient was also advised on the importance of getting a Pap smear and encouraged to get back in with the CERTIFIED MEDICAL CODING SPECIALIST. Additionally, the patient was encouraged to complete fasting labs in the near future. Social History - Employment: The patient has a new job with [employer] and reports making better money and being happy with the change. - Mental Health Support: The patient see s a therapist on a regular basis. Review of Systems - Constitutional: Denies suicidal or edith icidal ideation. - Integumentary: Reports dry skin with s plits in the knuckles. - Cardiovascular: Denies chest pain. - Respiratory: Denies shortness of breat h. - Gastrointestinal: Denies abdominal lesley n, constipation, or diarrhea. - Neurological: Reports numbness in the left hand. -denies any si or hi Physical Exam General: Cooperative, healthy appearing, comfortable, no acute distress and well developed Orientation: Patient oriented x3 Limitations: No limitations Head: Normal to inspection Ears: Hearing grossly normal bilaterally Nose: Normal external nose present Face and sinus: Normal facial exam Eyes: Appearance normal, both eyes and all related structures Neck: Normal visual inspection and Yes full ROM Respiratory: Normal respiratory effort and able to speak in complete sentences. Clear to auscultation bilaterally Cardiovascular: Regular rate and rhythm. Normal S1 and S2, faint systolic mumur GI: Normal to inspection. Soft to palpation and nontender Skin: Dry skin with splits in knuckles noted Neuro: Patient oriented x3. Positive Phalen's test, negative Tinel's sign left hand. Extremities: Normal to inspection. + 1 pitting to RLE, trace to lle Results Plan 1. Left Carpal Tunnel Syndrome The patient presents with numbness in the left hand, and examination revealed a positive Phalen's test, consistent with carpal tunnel syndrome. The patient was advised to use a wrist splint at night for two to four weeks and to follow up if symptoms persist. 2. Xerosis Cutis With Hand Fissures The patient reports dry skin with splits in the knuckles and is being followed by a skiver uppers or linings. The patient was encouraged to schedule a follow-up appointment with the skiver uppers or linings in the near future. 3. Weight Management The patient is on phentermine, which is reported to be less effective now than it was initially. The dose of phentermine will be increased. 4. carpel tunnel Discussion Notes I discussed that the patient's left hand numbness is likely carpal tunnel syndrome, based on a positive Phalen's test. I recommended trying a wrist splint at night for at least two to four weeks and instructed the patient to contact me if symptoms persist. Regarding the dry skin and splits in the knuckles, I encouraged the patient to see the skiver uppers or linings soon. I noted the patient's report that phentermine is less effective and informed the patient that I will increase the dose. I stressed the importance of health maintenance, confirming I will place an order for the overdue mammogram and advising the patient to schedule a Pap smear with the CERTIFIED MEDICAL CODING SPECIALIST and to have fasting labs drawn. Patient Instructions - For your left hand numbness, wear a wr ist splint at night for the next 2 to 4 weeks. Please contact our office if you do not see any improvement. - Schedule an appointment with your derm atologist to check the dry, cracked skin on your hands. - We will increase the dose of your phen termine medication. - It is important to get your mammogram done. We will place an order for you. - Please follow up with your gynecologis t (CERTIFIED MEDICAL CODING SPECIALIST) to have a Pap smear performed. - Please go to a lab to get fasting bloo d work done soon. [facility] Medical History Left hand pain Opioid use Osteoarthritis of left knee Emphysema/COPD Hyperplastic colon polyp (~2018) Hyperlipemia History of supraventricular tachycardia Nicotine dependence, cigarettes, uncomplicated HTN (hypertension) Hypothyroid Arthropathy of right knee Spinal cord stimulator dysfunction Right elbow tendonitis Surgical History History of total left knee replacement History of Achilles tendon repair History of cardiac cath History of cardiac radiofrequency ablation S/P insertion of spinal cord stimulator History of colonoscopy History of right salpingo-oophorectomy History of tubal ligation History of left knee surgery History of total right knee replacement History of revision of total replacement of right knee joint History of back surgery Family History Father No problems noted. Mother Diabetes Mental health disorder Sister Mental health disorder Social History Household Members: Spouse and Family Household Members Other:: Mother Housing: Apartment Are you a primary career development director to a significant other at home: Yes (career development director for mother, and daughter to assist post-op) Do you presently have visiting nurse or other home services: No Patient Tobacco Use Status: Current everyday Tobacco user Tobacco use type: Cigarette Cigarettes Per Day: 6 Years Smoked: 43 e-Cigarette/Vaping Use: Currently Using Second Hand Smoke Exposure: No service: No Current occupational status: unemployed Current occupational exposures/hazards: No Cognitive needs: No Hearing needs: No Vision needs: No Questionnaire PHQ-9 Over the last 2 weeks, how often have you been bothered by any of the following problems? 1. Little interest or pleasure in doing things: several days 2. Feeling down, depressed, or hopeless: several days 3. Trouble falling or staying asleep, or sleeping too much: several days 4. Feeling tired or having little energy: several days 5. Poor appetite or overeating: nearly every day 6. Feeling bad about yourself - or that you are a failure or have let yourself or your family down: several days 7. Trouble concentrating on things, such as reading the newspaper or watching television: more than half the days 8. Moving or speaking so slowly that other people could have noticed. Or the opposite - being so fidgety or restless that you have been moving around a lot m ore than usual: several days 9. Thoughts that you would be better off or of hurting yourself in some way: not at all Total score: 11 Depression Screening Interpretation: Positive (has a therapist, denies any si or hi) Depression Screening Follow-up: Existing condition Depression Screening Done: Yes 57162 - PHQ-9 Billing: Yes Source: Developed by Drs. Miles Anguiano, Jennifer Hill, Xander Rodriguez and colleagues, with an educational jacqueline from [employer] Thrive Questionnaire Date Thrive assessed: 03/27/25 I am a: Patient What is your living situation today?: I have a steady place to live Within the past 12 months, did the food you bought not last and you didn't have the money to get more?: Sometimes True Within the past 12 months, did you worry whether your food would run out before you got money to buy more?: Sometimes True Do you have trouble paying for medicines?: No Do you have trouble getting transportation to medical appointments?: No Do you have trouble paying your heating and electricity bill?: No Do you have trouble taking care of your child, family member or friend?: No Do you have trouble with day-to-day activities such as bathing, preparing meals, shopping, managing finances, etc.?: No Are you currently unemployed and looking for a job?: Yes Are you interested in more education?: No Please select the resources that you would like help with: None Currently or been in a relationship where the following occur: No concerns reported THRIVE Score: 2 AUDIT C Alcohol Use Questionnaire (AUDIT-C) 1. How often do you have a drink containing alcohol?: Never 3. How often do you have six or more drinks on one occasion?: Never Total Score: 0 JOAN-7 AMB Questionnaire JOAN-7 Date JOAN - 7 assessed: 10/09/25 Feeling nervous, anxious, or on edge: 1 = Several days Not being able to stop or control worryin = Nearly every day Worrying too much about different things: 3 = Nearly every day Trouble relaxin = Nearly every day Being so restless that it is hard to sit still: 1 = Several days Becoming easily annoyed or irritable: 2 = More than half the days Feeling afraid as if something awful might happen: 1 = Several days Total JOAN-7 score (0-4 normal; 5-9 mild; 10-14 moderate; 15-21 severe): 14 Source: Developed by Drs. Miles Anguiano, Jennifer Hill, Xander Rodriguez and colleagues, with an educational jacqueline from [employer] JOAN-7 Assessment Billing JOAN-7 Assessment Tool: JOAN-7 Assessment 33026 (denies any si or hi, sees a therapist) Physical exam (Primary Care) Vital Signs: Last Vital Signs Pulse 87 10/09/25 12:33 Resp 16 10/09/25 12:33 BP 120/82 10/09/25 12:33 Pulse Ox 97 10/09/25 12:33 Oxygen Delivery Method Room Air 10/09/25 12:33 BMI result Body Mass Index 37.3 Tobacco/Smoking Status: Tobacco use Status Tobacco use date assessed 03/27/25 10/09/25 12:41 Patient Tobacco Use Status Current everyday Tobacco 10/09/25 12:41 Tobacco use type Cigarette 10/09/25 12:41 e-Cigarette/Vaping Use Currently Using 10/09/25 12:41 PHQ-9: PHQ-9 Score PHQ-9: Total score 11 10/09/25 12:41 Depression Screening Interpretation: Positive (has a therapist, denies any si or hi) Depression Screening Follow-up: Existing condition Thrive Assessment: Date of Thrive Assessment Date Thrive assessed 03/27/25 10/09/25 12:41 Currently or been in a relationship where the following occur: No concerns reported Coding Level of Care Code Est Pt Level 3 (02768) Est Pt Prev Care 40-64y(24105) Diagnoses Vitamin D deficiency E55.9 Encounter for routine adult physical exam with abnormal findings Z00.01 Dry skin L85.3 Obesity E66.9 Carpal tunnel syndrome G56.00 Additional Codes PHQ-9 - 07266 - PHQ-9 Billing: Yes ([id number]) JOAN-7 Assessment Billing - JOAN-7 Assessment Tool: JOAN-7 Assessment 87533 ([id number]) Assessment & Plan Assessment & Plan (1) Vitamin D deficiency: Code(s): E55.9 - Vitamin D deficiency, unspecified Category: Medical (2) Encounter for routine adult physical exam with abnormal findings: Code(s): Z00.01 - Encounter for general adult medical examination with abnormal findings Category: Medical (3) Dry skin: Code(s): L85.3 - Xerosis cutis Category: Medical (4) Obesity: Code(s): E66.9 - Obesity, unspecified Category: Medical (5) Carpal tunnel syndrome: Code(s): G56.00 - Carpal tunnel syndrome, unspecified upper limb Category: Medical Plan . Orders: Orders MM screening mammo BI Today Z12.31 - Encounter for screening mammogram for malignant neoplasm of breast Vitamin D 25-OH Total Today E55.9 - Vitamin D deficiency, unspecified Complete Blood Count Auto Diff Today Z00.01 - Encounter for general adult medical examination with abnormal findings UA CC w/rflx Micro + Cult Today Z00. - Encounter for general adult medical examination with abnormal findings Lipid Panel Today Z00. - Encounter for general adult medical examination with abnormal findings Comprehensive [place]. Panel Fast Today Z00. - Encounter for general adult medical examination with abnormal findings TSH reflex Free T4 Today Z00.01 - Encounter for general adult medical examination with abnormal findings Medications: Changed From phentermine must administer 2 hours after breakfast 15 mg PO DAILY 30 days 30 caps 0RF To phentermine must administer 2 hours after breakfast 30 mg PO DAILY 30 caps 0RF 30 days
--- OUTSIDE RECORDS SUMMARY | 2025-10-09 15:32 | XMS_ITS | Clinical Summary ---
Author Organization [facility] Address [address] [place] [address] Phone Care Team Providers Care Medical Records Administrator Name Role Phone Trevor Ahn NP Primary Care Provider Allergies Active Allergy Reactions Criticality Noted Date Comments Escitalopram Rash 09/22/2021 Naproxen 09/22/2021 Paroxetine Medium 09/22/2021 Tramadol 09/22/2021 Venlafaxine Wheezing 09/22/2021 SOB Medications meloxicam (MOBIC) 15 mg tablet Take 1 tablet (15 mg total) by mouth 1 (one) time each day for 14 days. 14 each 09/29/2025 Active Encounters Date Type Department Care Team Description 09/29/2025 11:50 AM EST - 09/29/2025 1:57 PM EST Emergency Emergency [address] [place] [address] Right leg pain (Primary Dx); Right ankle pain, unspecified chronicity; Right calf pain Discharge Disposition: Home or Self Care from Last 3 Months Surgical History Surgery Date Site/Laterality Comments TOTAL KNEE ARTHROPLASTY 06/18/2020 Right PROCEDURE: HISTORICAL TOTAL KNEE REPLACE; COMMENT: Revision, Dr Holder KNEE ARTHROSCOPY 02/10/2021 Left PROCEDURE: [place] ARTHROSCOPY AID [place] SPINE&/FX KNEE W/O FIXJ; COMMENT: Partial Medial Meniscectomy, Partial Synovectomy of Impinging Plica, Dr. Holder OTHER SURGICAL HISTORY 2000 PROCEDURE: [place] ANES CARDIAC ELECTROPHYSIOL STDY W/RF ABLATION BACK SURGERY 02/03/2018 PROCEDURE: HISTORICAL BACK SURGERY; COMMENT: Spine Stimulator ELBOW SURGERY 11/2011 Right PROCEDURE: HISTORICAL ELBOW SURGERY; COMMENT: Lateral Epicondylar Debridement, [facility] Medical History Medical History Date Comments Anxiety and depression DX:Anxiet y and depression Alcohol abuse DX:Alcohol abuse SVT (supraventricular tachyc ardia) ([employer] [facility] [employer] V24) DX:SVT (supraventricular tac hycardia) ([facility]) Restless leg syndrome DX:Restles s leg syndrome Lumbar degenerative disc disease DX:Lumbar degenerative disc disease Drug abuse ([employer] [facility] [employer] V24, [employer] [facility] [employer] V28) DX:Drug abuse ([facility]) Disorder of thyroid DX:Disorder of thyroid Arthropathy of right knee DX:Art hropathy of right knee Left medial knee pain DX:Left me dial knee pain Mild aortic stenosis DX:Mild aor tic stenosis Opioid use disorder DX:Opioid us e disorder Pneumonia DX:Pneumonia Right elbow tendonitis DX:Right elbow tendonitis Spinal cord stimulator dysfu nction ([facility] [employer] V24) DX:Spinal cord stimulator dy sfunction ([facility]) Swelling of lower extremity DX:S welling of lower extremity Family History Medical History Relation Name Comments Diabetes Mother Relation Name Status Comments Father Mother Social History Tobacco Use Types Packs/Day Years Used Date Smoking Tobacco: Every Day Cigarettes Smokeless Tobacco: Never Alcohol Use Standard Drinks/Week Comments Never 0 (1 standard drink = 0.6 oz pur e alcohol) Comments No Sex and Gender Information Value Date Recorded Sex Assigned at Not on file Legal Sex Female 7:45 PM EST Gender Identity Not on file Sexual Orientation Not on file Obstetrics History Last Filed Vital Signs Vital Sign Reading Time Taken Comments Blood Pressure 124/61 09/29/2025 11:33 AM EST Pulse 96 09/29/2025 11:33 AM EST Temperature 37 C (98.6 F) 09/29/2025 11:33 AM EST Respiratory Rate 16 09/29/2025 11:33 AM EST Oxygen Saturation 95% 09/29/2025 11:33 AM EST Inhaled Oxygen Concentration - - Weight 109 kg (240 lb) 09/29/2025 11:33 AM EST Height 170.2 cm (5' 7 ) 09/29/2025 11:33 AM EST Body Mass Index 37.59 09/29/2025 11:33 AM EST Plan of Treatment Health Maintenance Due Date Last Done Comments Breast Cancer Screening 1966 Colorectal Cancer Screening: Colonoscopy 1966 DTaP,Tdap,and Td Vaccines (1 - Tdap) 1985 Hepatitis B Vaccines (1 of 3 - 19+ 3-dose series) 1985 Cervical Cancer Screening: Pap Smear 1987 Zoster Vaccines (1 of 2) 2016 Cholesterol Screening (Lipid Panel) 10/24/2022 HIV Screening 10/24/2022 Hepatitis C Screening 10/24/2022 Medicare Annual Wellness Visit 10/24/2022 Social Influencers of Health Screening 10/24/2022 Depression Screening 11/14/2024 COVID-19 Vaccine ( season) 2025 01/04/2022, 03/23/2021, 03/02/2021 RSV Immunization Adult Patients (1 - 1-dose 75+ series) 2041 Pneumococcal Vaccine: 50+ Years Completed 09/26/2024, 08/27/2021 Influenza Vaccine Completed 09/04/2025, , 09/28/2022, Additional history exists HIB Vaccines Aged Out No longer eligi [...] 20 months Aged Out No longer eligible based on patient's age to complete this topic Varicella Vaccines Aged Out No longer eligible based on patient's age to complete this topic Procedures Procedure Name Priority Date/Time Associated Diagnosis Comments XR ANKLE 3+ VIEWS RIGHT STAT 09/29/2025 1:09 PM EST VAS US DUPLEX LOWER EXT VENOUS RIGHT STAT 09/29/2025 12:03 PM EST Right leg pain from Last 3 Months Results * XR Ankle 3+ Views Right (09/29/2025 1:09 PM EST) Anatomical Region Laterality Modality Lower Extremities, Ankle Right Radiogr aphic Imaging 09/29/2025 1:33 PM EST Impressions 09/29/2025 1:35 PM EST Moderate lateral malleolar soft tissue swelling likely ligamentous injury, nonspecific. No visible acute fracture or dislocation. Small calcaneal heel and moderate- sized retrocalcaneal enthesophyte. -------- FINAL REPORT -------- Dictated By: Serge Skaggs Dictated Date: 09/29/2025 13:33 ET Assigned Physician: Serge Skaggs Reviewed and Electronically Signed By: Serge Skaggs Signed Date: 09/29/2025 13:35 ET Workstation ID: [id number] Transcribed By: Self Edit Transcribed Date: 09/29/2025 13:33 ET Narrative 09/29/2025 1:35 PM EST EXAMINATION: Right ankle 3 views. CLINICAL INDICATIONS: Right ankle pain for one week. No trauma COMPARISON: None. FINDINGS: There is moderate lateral malleolar soft tissue swelling. No visible acute fracture or dislocation seen. Ankle mortise and subtalar joints are normal. There is a small calcaneal heel and moderate-sized retrocalcaneal enthesophytes. There is mild mild dorsal intertarsal spurring as well. Procedure Note Serge Skaggs MD - 09/29/2025 EXAMINATION: Right ankle 3 views. CLINICAL INDICATIONS: Right ankle pain for one week. No trauma COMPARISON: None. FINDINGS: There is moderate lateral malleolar soft tissue swelling. Novisible acute fracture or dislocation seen. Ankle mortise and subtalarjoints are normal. There is a small calcaneal heel and moderate-sizedretrocalcaneal enthesophytes. There is mild mild dorsal intertarsalspurring as well. IMPRESSION: Moderate lateral malleolar soft tissue swelling likely ligamentous injury,nonspecific. No visible acute fracture or dislocation. Small calcaneal heel andmoderate-sized retrocalcaneal enthesophyte. -------- FINAL REPORT -------- Dictated By: Serge Skaggs Dictated Date: 09/29/2025 13:33 ET Assigned Physician: Serge Skaggs Reviewed and Electronically Signed By: Serge Skaggs Signed Date: 09/29/2025 13:35 ET Workstation ID: [id number] Transcribed By: Self Edit Transcribed Date: 09/29/2025 13:33 ET us Violet DENIS IMG XR PROCEDURES Final Result * Vascular US Duplex Lower Extremity Venous Right (09/29/2025 12:03 PM EST) Anatomical Region Laterality Modality Vascular, Abdomen Ultrasound 09/29/2025 12:1 9 PM EST Impressions 09/29/2025 12:21 PM EST Normal right lower leg venous study. -------- FINAL REPORT -------- Dictated By: Serge Skaggs Dictated Date: 09/29/2025 12:19 ET Assigned Physician: Serge Skaggs Reviewed and Electronically Signed By: Serge Skaggs Signed Date: 09/29/2025 12:21 ET Workstation ID: [id number] Transcribed By: Self Edit Transcribed Date: 09/29/2025 12:19 ET Narrative 09/29/2025 12:21 PM EST Examination: Ultrasound right lower extremity duplex study. COMPARISON: Ultrasound vascular duplex 01/31/2021. CLINICAL INDICATION: Right lower extremity pain and swelling x1 week. TECHNIQUE: Routine grayscale, color and Doppler imaging of right lower extremities veins were performed. FINDINGS: There is normal color flow, compression and Doppler imaging of right common femoral, superficial femoral, popliteal, gastrocnemius, peroneal and posterior tibial veins. The soft tissues are normal. No Cortez's cyst seen. Procedure Note Serge Skaggs MD - 09/29/2025 Examination: Ultrasound right lower extremity duplex study. COMPARISON: Ultrasound vascular duplex 01/31/2021. CLINICAL INDICATION: Right lower extremity pain and swelling x1 week. TECHNIQUE: Routine grayscale, color and Doppler imaging of right lowerextremities veins were performed. FINDINGS: There is normal color flow, compression and Doppler imaging ofright common femoral, superficial femoral, popliteal, gastrocnemius,peroneal and posterior tibial veins. The soft tissues are normal. NoBaker's cyst seen. IMPRESSION: Normal right lower leg venous study. -------- FINAL REPORT -------- Dictated By: Serge Skaggs Dictated Date: 09/29/2025 12:19 ET Assigned Physician: Serge Skaggs Reviewed and Electronically Signed By: Serge Skaggs Signed Date: 09/29/2025 12:21 ET Workstation ID: [id number] Transcribed By: Self Edit Transcribed Date: 09/29/2025 12:19 ET us Violet DENIS CV VASCULAR PROCEDURES Final R esult from Last 3 Months Insurance MEDICARE Care Teams Medical Records Administrator Relationship Specialty Start Date End Date Trevor Ahn NP [address], [place] PCP - General 09/22/21
== END 2025-10-09 13:27 | disposition home or self-care (01) ==
LOC: HO.HMCC 12:32
PROVIDERS: PCP Nurse Practitioner Family; Visit Provider Nurse Practitioner Family
DX: Z00.01 Encounter for general adult medical examination with abnormal findings (principal); E55.9 Vitamin D deficiency, unspecified; E66.9 Obesity, unspecified; Z68.37 Body mass index [BMI] 37.0-37.9, adult; L85.3 Xerosis cutis; G56.00 Carpal tunnel syndrome, unspecified upper limb

== ENCOUNTER → 2025-10-09 12:31 | Outpatient (BNVA) | payer MEDICARE, MEDICAID, SELFPAY | PROVIDERS: PCP Nurse Practitioner Family; Visit Provider Nurse Practitioner Family | DX: Z00.01 Encounter for general adult medical examination with abnormal findings (principal); L85.3 Xerosis cutis; E55.9 Vitamin D deficiency, unspecified; E66.9 Obesity, unspecified; G56.02 Carpal tunnel syndrome, left upper limb; Z13.31 Encounter for screening for depression; Z13.39 Encounter for screening examination for other mental health and behavioral disorders | CPT/HCPCS: 96127; 99212; 99396 ==

== ENCOUNTER 2025-10-14 09:51 | Outpatient (AMB) | payer MEDICARE, MEDICAID, SELFPAY ==
[2025-10-14 10:08] VITALS: BMI 37.3
--- NOTE | 2025-10-14 10:08 | A.OFFVIS_ITS ---
Vital Signs 10/14/25 10:08 Height 5 ft 7 in Weight 238 lb BMI 37.3 Intake Visit Reasons: NewProb-Left Hand Numbness, EMG Review Intake Note: Aaliyah is a 60 year old right hand dominant female who presents today for a New Problem Visit for evaluation of Left Hand Numbness & Tingling. Patient states all of her 5 fingers are numbed and tingly. Because of her meds, she is unsure if her hands are waking her through the night. Patient reports symptoms are daily and constant, making it difficult to slurry man, squeeze, and open and close lids. Denies finger locking. She has not tried braces, steroid injections, or Occupational Therapy. At home, she has tried warm compresses with minimal relief. Denies any prior injuries or surgeries to the left hand.? Impression 08/27/25: 1. [id number]-[id number] left median neuropathy across carpal tunnel 2. Radiculopathy could not be definitively ruled out because of the electrical artifact created by spinal cord stimulator limiting interpretation of EMG. Allergies effexor Allergy (Severe, Verified 10/14/25 10:09) shortness of breath escitalopram Allergy (Mild, Verified 10/14/25 10:09) rash Seasonal Allergies Allergy (Mild, Verified 10/14/25 10:09) rhinitis, watery eyes tramadol (TRAMADOL) Adverse Reaction (Intermediate, Verified 10/14/25 10:09) NAUSEA paroxetine (From PAXIL) Adverse Reaction (Mild, Verified 10/14/25 10:09) AGITATION HPI HPI NewProb-Left Hand Numbness, EMG Review: Details: Aaliyah is a 60 year old right hand dominant female who presents today for a New Problem Visit for evaluation of Left Hand Numbness & Tingling. Patient states all of her 5 fingers are numbed and tingly. Because of her meds, she is unsure if her hands are waking her through the night. Patient reports symptoms are daily and constant, making it difficult to slurry man, squeeze, and open and close lids. Patient does report an increase in pain at night, and this often makes it difficult to sleep. Denies finger locking. She has not tried braces, steroid injections, or Occupational Therapy. At home, she has tried warm compresses with minimal relief. Denies any prior injuries or surgeries to the left hand.? Impression 08/27/25: 1. Jxva-fe-kupnwbkk left median neuropathy across carpal tunnel 2. Radiculopathy could not be definitively ruled out because of the electrical artifact created by spinal cord stimulator limiting interpretation of EMG. [facility] Medical History Left hand pain Opioid use Osteoarthritis of left knee Emphysema/COPD Hyperplastic colon polyp (~2018) Hyperlipemia History of supraventricular tachycardia Nicotine dependence, cigarettes, uncomplicated HTN (hypertension) Hypothyroid Arthropathy of right knee Spinal cord stimulator dysfunction Right elbow tendonitis Surgical History History of total left knee replacement History of Achilles tendon repair History of cardiac cath History of cardiac radiofrequency ablation S/P insertion of spinal cord stimulator History of colonoscopy History of right salpingo-oophorectomy History of tubal ligation History of left knee surgery History of total right knee replacement History of revision of total replacement of right knee joint History of back surgery Family History Father No problems noted. Mother Diabetes Mental health disorder Sister Mental health disorder Social History (Updated 10/14/25 @ 10:12 by TERRANCE Dougherty) Household Members: Spouse and Family Household Members Other:: Mother Housing: Apartment Are you a primary care team assistant to a significant other at home: Yes (care team assistant for mother, and daughter to assist post-op) Do you presently have visiting nurse or other home services: No Alcohol intake: former Patient Tobacco Use Status: Current everyday Tobacco user Tobacco use type: Cigarette Cigarettes Per Day: 6 Years Smoked: 43 e-Cigarette/Vaping Use: Currently Using Second Hand Smoke Exposure: No service: No Current occupational status: unemployed Current occupation: rt handed Current occupational exposures/hazards: No Cognitive needs: No Hearing needs: No Vision needs: No Physical Exam Vital Signs: BMI result Body Mass Index 37.3 Extrem Other: Neuro: Decreased sensation in the left thumb. Normal sensation to all other digits in the left hand today. Normal sensation in the tips of all digits of the right hand today. No thenar or intrinsic wasting. Good APB muscle firing and good finger cross. Vascular: Capillary refill brisk. ROM: Patient can make a fist and extend all their digits. Skin: No lacerations or abrasions noted. General: No ecchymosis. No erythema or evidence of infection. [] Assessment & Plan Assessment & Plan (1) Left carpal tunnel syndrome: Code(s): G56.02 - Carpal tunnel syndrome, left upper limb Category: Medical (2) Numbness and tingling of right hand: Code(s): R20.0 - Anesthesia of skin; R20.2 - Paresthesia of skin Category: Medical Plan 1. Left carpal tunnel syndrome Symptoms constant, daily, worse at night I educated the patient about the condition. I discussed both operative and nonoperative treatment options. The patient would like to proceed with surgery. The risks and benefits of operative treatment were discussed with the patient and the patient wishes to proceed with surgery. These risks include, but are not limited to, risk of damage to blood vessels, nerves, tendons, infection, recurrence, incomplete relief of preoperative symptoms, persistent pain, possible need for further surgery, and the risks associated with regional blocks and/or anesthesia. Plan is to take the patient to the operating room at some point in the next few weeks for the following procedures: 1. Left carpal tunnel release under local anesthesia All of the preoperative paperwork including the consent was discussed today. All of the patient's questions were answered in the clinic today. The patient understands that they will be in contact with our surgical instrument technician to discuss scheduling their procedure. Patient denies diabetes, blood thinners, asthma, heart issues, lung issues, kidney issues, or current smoking. 2. Numbness and tingling of right hand Symptoms intermittent, daily, worse at night No EMG Patient is educated about this condition Patient is educated about the typical diagnostic and treatment course Patient would like to proceed with surgical intervention for left carpal tunnel syndrome prior to EMG for the right side We will order EMG at postoperative appointment if numbness and tingling of the right hand is still bothering her at that time Patient understands this and is amenable to this plan Coding Level of Care Code Complex visit Add On G2211 Diagnoses Left carpal tunnel syndrome G56.02 Numbness and tingling of right hand R20.0; R20.2
--- OUTSIDE RECORDS SUMMARY | 2025-10-14 11:51 | XMS_ITS | Clinical Summary ---
Author Organization [facility] Address [address] [place] [address] Phone Care Team Providers Care Psychologist Name Role Phone Trevor Ahn NP Primary Care Provider Allergies Active Allergy Reactions Criticality Noted Date Comments Escitalopram Rash 09/22/2021 Naproxen 09/22/2021 Paroxetine Medium 09/22/2021 Tramadol 09/22/2021 Venlafaxine Wheezing 09/22/2021 SOB Medications meloxicam (MOBIC) 15 mg tablet Take 1 tablet (15 mg total) by mouth 1 (one) time each day for 14 days. 14 each 09/29/2025 Encounters Date Type Department Care Team Description 09/29/2025 11:50 AM EST - 09/29/2025 1:57 PM EST Emergency [facility] Emergency [address] [place] [address] Right leg pain (Primary Dx); Right ankle pain, unspecified chronicity; Right calf pain Discharge Disposition: Home or Self Care from Last 3 Months Surgical History Surgery Date Site/Laterality Comments TOTAL KNEE ARTHROPLASTY 06/18/2020 Right PROCEDURE: HISTORICAL TOTAL KNEE REPLACE; COMMENT: Revision, Dr Holder KNEE ARTHROSCOPY 02/10/2021 Left PROCEDURE: [place] ARTHROSCOPY AID [place] SPINE&/FX KNEE W/O FIXJ; COMMENT: Partial Medial Meniscectomy, Partial Synovectomy of Impinging Plica, Dr. Holder OTHER SURGICAL HISTORY 2000 PROCEDURE: [place] ANES CARDIAC ELECTROPHYSIOL STDY W/RF ABLATION BACK SURGERY 02/03/2018 PROCEDURE: HISTORICAL BACK SURGERY; COMMENT: Spine Stimulator ELBOW SURGERY 11/2011 Right PROCEDURE: HISTORICAL ELBOW SURGERY; COMMENT: Lateral Epicondylar Debridement, [facility] Medical History Medical History Date Comments Anxiety and depression DX:Anxiet y and depression Alcohol abuse DX:Alcohol abuse SVT (supraventricular tachyc ardia) ([place] [facility]) DX:SVT (supraventricular tac hycardia) ([facility]) Restless leg syndrome DX:Restles s leg syndrome Lumbar degenerative disc disease DX:Lumbar degenerative disc disease Drug abuse ([place] V24, [place] V28) DX:Drug abuse ([facility]) Disorder of thyroid DX:Disorder of thyroid Arthropathy of right knee DX:Art hropathy of right knee Left medial knee pain DX:Left me dial knee pain Mild aortic stenosis DX:Mild aor tic stenosis Opioid use disorder DX:Opioid us e disorder Pneumonia DX:Pneumonia Right elbow tendonitis DX:Right elbow tendonitis Spinal cord stimulator dysfu nction ([place] V24) DX:Spinal cord stimulator dy sfunction ([facility]) Swelling of lower extremity DX:S welling [...] Date: 09/29/2025 13:33 ET Assigned Physician: Serge Skgags Reviewed and Electronically Signed By: Serge Skaggs Signed Date: 09/29/2025 13:35 ET Workstation ID: [id number] Transcribed By: Self Edit Transcribed Date: 09/29/2025 [...] Signed Date: 09/29/2025 13:35 ET Workstation ID: [id number] Transcribed By: Self Edit Transcribed Date: 09/29/2025 [...] Signed Date: 09/29/2025 12:21 ET Workstation ID: [id number] Transcribed By: Self Edit Transcribed Date: 09/29/2025 [...] Signed Date: 09/29/2025 12:21 ET Workstation ID: [id number] Transcribed By: Self Edit Transcribed Date: 09/29/2025 12:19 ET us Violet DENIS CV VASCULAR PROCEDURES Final R esult from Last 3 Months Insurance MEDICARE Care Teams Psychologist Relationship Specialty Start Date End Date Trevor Ahn NP [address], [place] PCP - General 09/22/21
== END 2025-10-14 10:46 | disposition home or self-care (01) ==
LOC: HO.HOS 09:52
PROVIDERS: PCP Nurse Practitioner Family
DX: G56.02 Carpal tunnel syndrome, left upper limb (principal); R20.0 Anesthesia of skin; R20.2 Paresthesia of skin
CPT/HCPCS: 99214; G2211

== ENCOUNTER → 2025-10-14 09:51 | Outpatient (BNVA) | payer MEDICARE, MEDICAID, SELFPAY | PROVIDERS: PCP Nurse Practitioner Family | DX: G56.02 Carpal tunnel syndrome, left upper limb (principal); R20.0 Anesthesia of skin; R20.2 Paresthesia of skin; F17.210 Nicotine dependence, cigarettes, uncomplicated | CPT/HCPCS: 99212 ==

== ENCOUNTER 2025-10-23 10:10 | Outpatient (REF) | payer MEDICARE, MEDICAID, SELFPAY ==
--- NOTE | ~2025-10-23 | XR_ITS ---
EXAMINATION: XR THORACIC SPINE CLINICAL INFORMATION: Z96.89 - Presence of other specified functional implants COMPARISON: None available. TECHNIQUE: 3 views of the thoracic spine were obtained. FINDINGS: Vertebral body heights are maintained. No evidence of acute fracture. Multilevel mild-moderate disc degeneration. Neurostimulator device present. Assuming the lowermost rib bearing vertebral body is T12, the proximal tip of the leads is projected at the level of the upper vertebral body/T 7-8 disc space No acute findings in the visualized lungs. XR/XR thoracic spine 3V IMPRESSION: No acute osseous findings Mild-moderate thoracic spine spondylosis Neural stimulator device, as detailed above. Electronically signed by: Sam Cramer MD 10/23/2025 12:02 PM CAL
--- OUTSIDE RECORDS SUMMARY | 2025-10-23 18:04 | XMS_ITS | Clinical Summary ---
Author Organization [facility] Address [address] [place] [address] Phone Care Team Providers Care Assistant Professor Surgical Technology Name Role Phone Trevor Ahn NP Primary [...] EST - 09/29/2025 1:57 PM EST Emergency [facility] Emergency [address] [place] [address] Right leg pain (Primary Dx); [...] abuse DX:Alcohol abuse SVT (supraventricular tachyc ardia) ([facility] V24) DX:SVT (supraventricular tac hycardia) ([facility]) Restless leg syndrome DX:Restles s leg syndrome Lumbar degenerative disc disease DX:Lumbar degenerative disc disease Drug abuse ([facility] V24, [facility] V28) DX:Drug abuse ([facility]) Disorder of thyroid DX:Disorder of thyroid Arthropathy of right knee DX:Art hropathy of right knee Left medial knee pain DX:Left me dial knee pain Mild aortic stenosis DX:Mild aor tic stenosis Opioid use disorder DX:Opioid us e disorder Pneumonia DX:Pneumonia Right elbow tendonitis DX:Right elbow tendonitis Spinal cord stimulator dysfu nction ([facility] V24) DX:Spinal cord stimulator dy sfunction ([facility]) Swelling of lower extremity DX:S welling [...] on file Sexual Orientation Not on file Last Filed Vital Signs Vital Sign Reading [...] Signed Date: 09/29/2025 13:35 ET Workstation ID: [id number] Transcribed By: Self Edit Transcribed Date: 09/29/2025 [...] Signed Date: 09/29/2025 13:35 ET Workstation ID: [id number] Transcribed By: Self Edit Transcribed Date: 09/29/2025 [...] Signed Date: 09/29/2025 12:21 ET Workstation ID: [id number] Transcribed By: Self Edit Transcribed Date: 09/29/2025 [...] Signed Date: 09/29/2025 12:21 ET Workstation ID: [id number] Transcribed By: Self Edit Transcribed Date: 09/29/2025 12:19 ET us Violet DENIS CV VASCULAR PROCEDURES Final R esult from Last 3 Months Insurance MEDICARE [place]ICA[place] - [place] Care Teams Assistant Professor Surgical Technology Relationship Specialty Start Date End Date Trevor Ahn NP [address], [place] PCP - General 09/22/21
== END 2025-10-23 10:11 | disposition home or self-care (01) ==
LOC: HO.XRAY 10:10
PROVIDERS: PCP Nurse Practitioner Family; Visit Provider Anesthesiology
DX: Z45.42 Encounter for adjustment and management of neurostimulator (principal); G89.4 Chronic pain syndrome; Z96.89 Presence of other specified functional implants
CPT/HCPCS: 72072

== ENCOUNTER 2025-10-23 10:10 | Outpatient (AMB) | payer MEDICARE, MEDICAID, SELFPAY ==
--- NOTE | 2025-10-23 10:12 | MHC.OFFVIS ---
Vital Signs 10/23/25 10:14 Height 5 ft 7 in Weight 236 lb BMI 37.0 BP 139/68 Blood Pressure Location Lt brachial Position Sitting Respiration 16 Pulse 98 Pulse Source Pulse Oximeter Pulse Oximetry (%) 99 Oxygen Delivery Method Room Air Intake Visit Reasons: SCS Check Up, Burning Sensation Customer Service Supervisor Required: No Accompanied by: Self / Same As Patient Allergies effexor Allergy (Severe, Verified 10/23/25 10:16) shortness of breath escitalopram Allergy (Mild, Verified 10/23/25 10:16) rash Seasonal Allergies Allergy (Mild, Verified 10/23/25 10:16) rhinitis, watery eyes tramadol (TRAMADOL) Adverse Reaction (Intermediate, Verified 10/23/25 10:16) NAUSEA paroxetine (From PAXIL) Adverse Reaction (Mild, Verified 10/23/25 10:16) AGITATION HPI Comments Details: Aaliyah is back in my office again reporting some side effects from using of spinal cord stimulator. The system is implanted on the left hip area. When she turns the device off for few sec she feels very intense sensation in the right hip. This is 1st time in my practice someone is complaining on the situation like this. Trupti interrogated her stim today. She has 1 electrode on his left!!! lead, hardly it will explained the symptoms she experiences. I offered her to go for x-ray of the thoracic spine to assess the positioned the electrodes. I will see her in 2 weeks after x-rays done and read. Prior: very pleasant 59 years old female who presents in my office for the follow-up after implantation of the spinal cord stimulator which was performed to her [address] Caba. She reports excellent results of spinal cord stimulator. She reports absence of lower back pain with radiation of bilateral lower extremities when she keeps charging her spinal cord stimulator. She is able to sleep normally she can do activities of daily living, she can take care of herself, she can function normally. She is here today with inside outside sales representative for of [employer] Pasquale Hardin to adjust some minor irregularities with her spinal cord stimulator. Her past medical history negative, her past surgical history significant for bilateral total knee replacement in 2016 and 2022 as well as implantation of spinal cord stimulator in 2018. She received some injections by Dr. Caba in the past. She denies drinking alcohol she smokes 1 pack of cigarettes over the course of 2 weeks minimal smoking she drinks 6 cups of coffee a day and she denies recreational drugs. [facility] History Left hand pain Opioid use Osteoarthritis of left knee Emphysema/COPD Hyperplastic colon polyp (~2018) Hyperlipemia History of supraventricular tachycardia Nicotine dependence, cigarettes, uncomplicated HTN (hypertension) Hypothyroid Arthropathy of right knee Spinal cord stimulator dysfunction Right elbow tendonitis Surgical History History of total left knee replacement History of Achilles tendon repair History of cardiac cath History of cardiac radiofrequency ablation S/P insertion of spinal cord stimulator History of colonoscopy History of right salpingo-oophorectomy History of tubal ligation History of left knee surgery History of total right knee replacement History of revision of total replacement of right knee joint History of back surgery Family History Father No problems noted. Mother Diabetes Mental health disorder Sister Mental health disorder Social History (Updated 10/14/25 @ 10:12 by TERRANCE Dougherty) Household Members: Spouse and Family Household Members Other:: Mother Housing: Apartment Are you a primary adult caregiver to a significant other at home: Yes (adult caregiver for mother, and daughter to assist post-op) Do you presently have visiting nurse or other home services: No Alcohol intake: former Patient Tobacco Use Status: Current everyday Tobacco user Tobacco use type: Cigarette Cigarettes Per Day: 6 Years Smoked: 43 e-Cigarette/Vaping Use: Currently Using Second Hand Smoke Exposure: No service: No Current occupational status: unemployed Current occupation: rt handed Current occupational exposures/hazards: No Cognitive needs: No Hearing needs: No Vision needs: No Review of Systems Const All systems reviewed & are unremarkable except as noted in HPI and below ENT Reports Normal hearing present Neuro Reports Normal hearing present, Denies Abnormal speech present, Denies confusion and Denies Sensory deficit (Neuro) Psych Denies confusion Physical Exam Vital Signs: Last Vital Signs Pulse 98 10/23/25 10:14 Resp 16 10/23/25 10:14 BP 139/68 10/23/25 10:14 Pulse Ox 99 10/23/25 10:14 Oxygen Delivery Method Room Air 10/23/25 10:14 BMI result Body Mass Index 37.0 Const General: no acute distress; No confusion Orientation/consciousness: patient oriented x3 and No confusion Eyes General: appearance normal, both eyes and all related structures Pupils: Equal, round and reactive pupils present EOM: EOMs intact bilaterally Neck Neck: Yes full ROM Chest Chest palpation & inspection: normal inspection of the chest Resp Effort & Inspection: normal respiratory effort, able to speak in complete sentences, normal respiratory pattern, no audible wheezes and no cough Cardio Jugular venous distension: no JVD GI Inspection: Yes normal to inspection Neuro General: patient oriented x3, gait normal and No confusion Cranial nerves: Yes CN's II-XII intact bilaterally, Yes Equal, round and reactive pupils present, Yes Normal hearing present and Yes Ability to bilaterally elevate shoulders present Speech: No Abnormal speech present Gait exam (Neuro): Normal gait present Motor exam (neuro): 5/5 motor strength present throughout Sensory Exam: No Sensory deficit (Neuro) Extrem General: No pedal edema Psych Speech and movement: Normal speech and movement present Affect: normal affect Attitude: cooperative Thought process: Normal thought process present Thought content: Normal thought content present Insight: Good insight present (Psych) Judgement: Good judgement present (Psych) Assessment & Plan Assessment & Plan (1) Spinal cord stimulator status: Code(s): Z96.89 - Presence of other specified functional implants Category: Medical (2) Chronic pain syndrome: Code(s): G89.4 - Chronic pain syndrome Category: Medical Plan The patient is in my office today with Trupti Cespedes who is examining her spinal cord stimulator. Complains on burning sensation on the right side hip when she turns the device of. I will send her for the x-ray of the thoracic spine. I will see her in 2 weeks. Orders: Orders XR thoracic spine 3V Today Z96.89 - Presence of other specified functional implants Coding Level of Care Code Est Pt Level 3 (98093) Diagnoses Spinal cord stimulator status Z96.89 Chronic pain syndrome G89.4
[2025-10-23 10:14] VITALS: BP 139/68; PULSE 98; RESP 16; O2SAT 99; BMI 37.0
== END 2025-10-23 10:29 | disposition home or self-care (01) ==
LOC: HO.PMC 10:11
PROVIDERS: PCP Nurse Practitioner Family; Visit Provider Anesthesiology
DX: G89.4 Chronic pain syndrome (principal); Z96.82 Presence of neurostimulator
CPT/HCPCS: 99213

== ENCOUNTER → 2025-10-23 11:18 | Outpatient (BNV) | payer MEDICARE, MEDICAID, SELFPAY | PROVIDERS: PCP Nurse Practitioner Family; Visit Provider Radiology Diagnostic Ultrasound | DX: M47.814 Spondylosis without myelopathy or radiculopathy, thoracic region (principal); Z96.89 Presence of other specified functional implants | CPT/HCPCS: 72072 ==

== ENCOUNTER 2025-11-01 14:54 | Outpatient (AMB) | payer MEDICARE, MEDICAID, SELFPAY ==
[2025-11-01 14:58] VITALS: BP 128/76; PULSE 118; O2SAT 94
--- NOTE | 2025-11-01 14:58 | MHC.AM.SUB ---
Vital Signs 11/01/25 14:58 BP 128/76 Pulse 118 H Pulse Oximetry (%) 94 Intake Visit Reasons: MAT Allergies effexor Allergy (Severe, Verified 11/06/25 09:38) shortness of breath escitalopram Allergy (Mild, Verified 11/06/25 09:38) rash Seasonal Allergies Allergy (Mild, Verified 11/06/25 09:38) rhinitis, watery eyes tramadol (TRAMADOL) Adverse Reaction (Intermediate, Verified 11/06/25 09:38) NAUSEA paroxetine (From PAXIL) Adverse Reaction (Mild, Verified 11/06/25 09:38) AGITATION HPI HPI MAT: Details: She has been taking medication She has been tolerating it There is no constipation of concern Review of Systems Const All systems reviewed & are unremarkable except as noted in HPI and below Physical Exam Vital Signs: Last Vital Signs Pulse 118 H 11/01/25 14:58 BP 128/76 11/01/25 14:58 Pulse Ox 94 11/01/25 14:58 PFSH Medical History Left hand pain Opioid use Osteoarthritis of left knee Emphysema/COPD Hyperplastic colon polyp (~2018) Hyperlipemia History of supraventricular tachycardia Nicotine dependence, cigarettes, uncomplicated HTN (hypertension) Hypothyroid Arthropathy of right knee Spinal cord stimulator dysfunction Right elbow tendonitis Surgical History History of total left knee replacement History of Achilles tendon repair History of cardiac cath History of cardiac radiofrequency ablation S/P insertion of spinal cord stimulator History of colonoscopy History of right salpingo-oophorectomy History of tubal ligation History of left knee surgery History of total right knee replacement History of revision of total replacement of right knee joint History of back surgery Family History Father No problems noted. Mother Diabetes Mental health disorder Sister Mental health disorder Social History Household Members: Spouse and Family Household Members Other:: Mother Housing: Apartment Are you a primary healthcare network consultant to a significant other at home: Yes (healthcare network consultant for mother, and daughter to assist post-op) Do you presently have visiting nurse or other home services: No Alcohol intake: former Patient Tobacco Use Status: Current everyday Tobacco user Tobacco use type: Cigarette Cigarettes Per Day: 6 Years Smoked: 43 e-Cigarette/Vaping Use: Currently Using Second Hand Smoke Exposure: No service: No Current occupational status: unemployed Current occupation: rt handed Current occupational exposures/hazards: No Cognitive needs: No Hearing needs: No Vision needs: No Assessment & Plan Assessment & Plan (1) Opioid use disorder, moderate, in sustained remission: Comment: She is doing well Code(s): F11.21 - Opioid dependence, in remission Category: Medical Plan Continue Suboxone See as scheduled Medications: New buprenorphine-naloxone 8-2 mg (Suboxone) 1 film sublingual TID 90 ea 1RF 30 days
--- OUTSIDE RECORDS SUMMARY | 2025-11-01 16:13 | XMS_ITS | Clinical Summary ---
Author Organization [facility] Address [address] [place] [address] Phone Care Team Providers Care Chemistry Faculty Member Name Role Phone Trevor Ahn NP Primary [...] EST - 09/29/2025 1:57 PM EST Emergency [facility] Emergency [address] [place] [address] Right leg pain (Primary Dx); Right ankle pain, unspecified chronicity; Right calf pain Discharge Disposition: Home or Self Care from Last 3 Months Surgical History Surgery Date Site/Laterality Comments TOTAL KNEE ARTHROPLASTY 06/18/2020 Right PROCEDURE: HISTORICAL TOTAL KNEE REPLACE; COMMENT: Revision, Dr Holder KNEE ARTHROSCOPY 02/10/2021 Left PROCEDURE: MD ARTHROSCOPY AID TX SPINE&/FX KNEE W/O FIXJ; COMMENT: Partial Medial Meniscectomy, Partial Synovectomy of Impinging Plica, Dr. Holder OTHER SURGICAL HISTORY 2000 PROCEDURE: MD ANES CARDIAC ELECTROPHYSIOL STDY W/RF ABLATION BACK SURGERY 02/03/2018 PROCEDURE: HISTORICAL BACK SURGERY; COMMENT: Spine Stimulator ELBOW SURGERY 11/2011 Right PROCEDURE: HISTORICAL ELBOW SURGERY; COMMENT: Lateral Epicondylar Debridement, [facility] Medical History Medical History Date Comments Anxiety and depression DX:Anxiet y and depression Alcohol abuse DX:Alcohol abuse SVT (supraventricular tachyc ardia) ([facility] V24) DX:SVT (supraventricular tac hycardia) ([facility]) Restless leg syndrome DX:Restles s leg syndrome Lumbar degenerative disc disease DX:Lumbar degenerative disc disease Drug abuse ([facility] V24, [facility] V28) DX:Drug abuse ([facility]) Disorder of thyroid DX:Disorder of thyroid Arthropathy of right knee DX:Art hropathy of right knee Left medial knee pain DX:Left me dial knee pain Mild aortic stenosis DX:Mild aor tic stenosis Opioid use disorder DX:Opioid us e disorder Pneumonia DX:Pneumonia Right elbow tendonitis DX:Right elbow tendonitis Spinal cord stimulator dysfu nction ([facility] V24) DX:Spinal cord stimulator dy sfunction ([facility]) Swelling of lower extremity DX:S [...] Signed Date: 09/29/2025 13:35 ET Workstation ID: [id number] Transcribed By: Self Edit Transcribed Date: 09/29/2025 [...] Signed Date: 09/29/2025 13:35 ET Workstation ID: [id number] Transcribed By: Self Edit Transcribed Date: 09/29/2025 [...] Signed Date: 09/29/2025 12:21 ET Workstation ID: [id number] Transcribed By: Self Edit Transcribed Date: 09/29/2025 [...] Signed Date: 09/29/2025 12:21 ET Workstation ID: [id number] Transcribed By: Self Edit Transcribed Date: 09/29/2025 12:19 ET us Violet DENIS CV VASCULAR PROCEDURES Final R esult from Last 3 Months Insurance MEDICARE [place]ICAID - [place] Care Teams Chemistry Faculty Member Relationship Specialty Start Date End Date Trevor Ahn NP [address], [place] PCP - General 09/22/21
== END 2025-11-01 15:20 | disposition home or self-care (01) ==
LOC: HO.HCC 14:54
PROVIDERS: PCP Nurse Practitioner Family; Visit Provider Internal Medicine
DX: F11.21 Opioid dependence, in remission (principal)
CPT/HCPCS: 99213

== ENCOUNTER → 2025-11-01 14:54 | Outpatient (BNVA) | payer MEDICARE, MEDICAID, SELFPAY | PROVIDERS: PCP Nurse Practitioner Family; Visit Provider Internal Medicine | DX: F11.21 Opioid dependence, in remission (principal); F17.210 Nicotine dependence, cigarettes, uncomplicated | CPT/HCPCS: 99212 ==

== ENCOUNTER 2025-11-06 09:35 | Outpatient (AMB) | payer MEDICARE, MEDICAID, SELFPAY ==
[2025-11-06 09:38] VITALS: BP 140/70; PULSE 106; RESP 16; O2SAT 95; BMI 37.1
--- NOTE | 2025-11-06 09:38 | MHC.OFFVIS ---
Vital Signs 11/06/25 09:38 Height 5 ft 7 in Weight 237 lb BMI 37.1 BP 140/70 H Blood Pressure Location Rt brachial Position Sitting Respiration 16 Pulse 106 H Pulse Source Pulse Oximeter Pulse Oximetry (%) 95 Oxygen Delivery Method Room Air Intake Visit Reasons: X-RAY FOLLOW UP Supervisor Carpenters Required: No Accompanied by: Self / Same As Patient Allergies effexor Allergy (Severe, Verified 11/06/25 09:38) shortness of breath escitalopram Allergy (Mild, Verified 11/06/25 09:38) rash Seasonal Allergies Allergy (Mild, Verified 11/06/25 09:38) rhinitis, watery eyes tramadol (TRAMADOL) Adverse Reaction (Intermediate, Verified 11/06/25 09:38) NAUSEA paroxetine (From PAXIL) Adverse Reaction (Mild, Verified 11/06/25 09:38) AGITATION HPI Comments Details: Aaliyah is back in my office to discuss the results of the x-ray of the thoracic spine. The position of the electrodes is appropriate. It can not explain the symptoms patient experience. I recommend patient to charge RPG every day for 30 minutes. The patient agreed. Next appointment is as needed. I recommended patient to keep spinal cord stimulator running. Prior: some side effects from using of spinal cord stimulator. The system is implanted on the left hip area. When she turns the device off for few sec she feels very intense sensation in the right hip. This is 1st time in my practice someone is complaining on the situation like this. Trupti interrogated her stim today. She has 1 electrode on his left!!! lead, hardly it will explained the symptoms she experiences. I offered her to go for x-ray of the thoracic spine to assess the positioned the electrodes. I will see her in 2 weeks after x-rays done and read. Prior: very pleasant 59 years old female who presents in my office for the follow-up after implantation of the spinal cord stimulator which was performed to her [address] Caba. She reports excellent results of spinal cord stimulator. She reports absence of lower back pain with radiation of bilateral lower extremities when she keeps charging her spinal cord stimulator. She is able to sleep normally she can do activities of daily living, she can take care of herself, she can function normally. She is here today with hvac sales representative for of [employer] Pasquale Hardin to adjust some minor irregularities with her spinal cord stimulator. Her past medical history negative, her past surgical history significant for bilateral total knee replacement in 2017 and 2022 as well as implantation of spinal cord stimulator in 2018. She received some injections by Dr. Caba in the past. She denies drinking alcohol she smokes 1 pack of cigarettes over the course of 2 weeks minimal smoking she drinks 6 cups of coffee a day and she denies recreational drugs. [facility] Medical History Left hand pain Opioid use Osteoarthritis of left knee Emphysema/COPD Hyperplastic colon polyp (~2018) Hyperlipemia History of supraventricular tachycardia Nicotine dependence, cigarettes, uncomplicated HTN (hypertension) Hypothyroid Arthropathy of right knee Spinal cord stimulator dysfunction Right elbow tendonitis Surgical History History of total left knee replacement History of Achilles tendon repair History of cardiac cath History of cardiac radiofrequency ablation S/P insertion of spinal cord stimulator History of colonoscopy History of right salpingo-oophorectomy History of tubal ligation History of left knee surgery History of total right knee replacement History of revision of total replacement of right knee joint History of back surgery Family History Father No problems noted. Mother Diabetes Mental health disorder Sister Mental health disorder Social History (Updated 10/14/25 @ 10:12 by TERRANCE Dougherty) Household Members: Spouse and Family Household Members Other:: Mother Housing: Apartment Are you a primary children's zoo caretaker to a significant other at home: Yes (children's zoo caretaker for mother, and daughter to assist post-op) Do you presently have visiting nurse or other home services: No Alcohol intake: former Patient Tobacco Use Status: Current everyday Tobacco user Tobacco use type: Cigarette Cigarettes Per Day: 6 Years Smoked: 43 e-Cigarette/Vaping Use: Currently Using Second Hand Smoke Exposure: No service: No Current occupational status: unemployed Current occupation: rt handed Current occupational exposures/hazards: No Cognitive needs: No Hearing needs: No Vision needs: No Review of Systems Const All systems reviewed & are unremarkable except as noted in HPI and below ENT Reports Normal hearing present Neuro Reports Normal hearing present, Denies Abnormal speech present, Denies confusion and Denies Sensory deficit (Neuro) Psych Denies confusion Physical Exam Vital Signs: Last Vital Signs Pulse 106 H 11/06/25 09:38 Resp 16 11/06/25 09:38 BP 140/70 H 11/06/25 09:38 Pulse Ox 95 11/06/25 09:38 Oxygen Delivery Method Room Air 11/06/25 09:38 BMI result Body Mass Index 37.1 Const General: no acute distress; No confusion Orientation/consciousness: patient oriented x3 and No confusion Eyes General: appearance normal, both eyes and all related structures Pupils: Equal, round and reactive pupils present EOM: EOMs intact bilaterally Neck Neck: Yes full ROM Chest Chest palpation & inspection: normal inspection of the chest Resp Effort & Inspection: normal respiratory effort, able to speak in complete sentences, normal respiratory pattern, no audible wheezes and no cough Cardio Jugular venous distension: no JVD GI Inspection: Yes normal to inspection Neuro General: patient oriented x3, gait normal and No confusion Cranial nerves: Yes CN's II-XII intact bilaterally, Yes Equal, round and reactive pupils present, Yes Normal hearing present and Yes Ability to bilaterally elevate shoulders present Speech: No Abnormal speech present Gait exam (Neuro): Normal gait present Motor exam (neuro): 5/5 motor strength present throughout Sensory Exam: No Sensory deficit (Neuro) Extrem General: No pedal edema Psych Speech and movement: Normal speech and movement present Affect: normal affect Attitude: cooperative Thought process: Normal thought process present Thought content: Normal thought content present Insight: Good insight present (Psych) Judgement: Good judgement present (Psych) Assessment & Plan Assessment & Plan (1) Spinal cord stimulator status: Code(s): Z96.89 - Presence of other specified functional implants Category: Medical (2) Chronic pain syndrome: Code(s): G89.4 - Chronic pain syndrome Category: Medical Plan Next appointment is as needed. Spinal cord stimulator discussion see as above. Coding Level of Care Code Est Pt Level 3 (69974) Diagnoses Spinal cord stimulator status Z96.89 Chronic pain syndrome G89.4
--- OUTSIDE RECORDS SUMMARY | 2025-11-06 09:39 | XMS_ITS | Clinical Summary ---
Author Organization [facility] Address [address] [place] [address] Phone Care Team Providers Care Cephalometric Analyst Name Role Phone Trevor Ahn NP Primary [...] EST - 09/29/2025 1:57 PM EST Emergency [facility] Emergency [address] [place] [address] Right leg pain (Primary Dx); Right ankle pain, unspecified chronicity; Right calf pain Discharge Disposition: Home or Self Care from Last 3 Months Surgical History Surgery Date Site/Laterality Comments TOTAL KNEE ARTHROPLASTY 06/18/2020 Right PROCEDURE: HISTORICAL TOTAL KNEE REPLACE; COMMENT: Revision, Dr Holder KNEE ARTHROSCOPY 02/10/2021 Left PROCEDURE: DE ARTHROSCOPY AID TX SPINE&/FX KNEE W/O FIXJ; COMMENT: Partial Medial Meniscectomy, Partial Synovectomy of Impinging Plica, Dr. Holder OTHER SURGICAL HISTORY 2000 PROCEDURE: DE ANES CARDIAC ELECTROPHYSIOL STDY W/RF ABLATION BACK SURGERY 02/03/2018 PROCEDURE: HISTORICAL BACK SURGERY; COMMENT: Spine Stimulator ELBOW SURGERY 11/2011 Right PROCEDURE: HISTORICAL ELBOW SURGERY; COMMENT: Lateral Epicondylar Debridement, [facility] Medical History Medical History Date Comments Anxiety and depression DX:Anxiet y and depression Alcohol abuse DX:Alcohol abuse SVT (supraventricular tachyc ardia) ([facility] V24) DX:SVT (supraventricular tac hycardia) ([facility]) Restless leg syndrome DX:Restles s leg syndrome Lumbar degenerative disc disease DX:Lumbar degenerative disc disease Drug abuse ([facility] V24, [facility] V28) DX:Drug abuse ([facility]) Disorder of thyroid DX:Disorder of [...] [place]) DX:Spinal cord stimulator dy sfunction ([facility]) Swelling of lower extremity DX:S [...] Signed Date: 09/29/2025 13:35 ET Workstation ID: [id number] Transcribed By: Self Edit Transcribed Date: 09/29/2025 [...] Signed Date: 09/29/2025 13:35 ET Workstation ID: [id number] Transcribed By: Self Edit Transcribed Date: 09/29/2025 [...] Signed Date: 09/29/2025 12:21 ET Workstation ID: [id number] Transcribed By: Self Edit Transcribed Date: 09/29/2025 [...] Signed Date: 09/29/2025 12:21 ET Workstation ID: [id number] Transcribed By: Self Edit Transcribed Date: 09/29/2025 12:19 ET us Violet DENIS CV VASCULAR PROCEDURES Final R esult from Last 3 Months Insurance MEDICARE MEDICAID - [place] Care Teams Cephalometric Analyst Relationship Specialty Start Date End Date Trevor Ahn NP [address], [place] PCP - General 09/22/21
== END 2025-11-06 10:17 | disposition home or self-care (01) ==
LOC: HO.PMC 09:36
PROVIDERS: PCP Nurse Practitioner Family; Visit Provider Anesthesiology
DX: Z96.89 Presence of other specified functional implants (principal); G89.4 Chronic pain syndrome
CPT/HCPCS: 99213

== ENCOUNTER → 2025-11-06 09:35 | Outpatient (BNVA) | payer MEDICARE, MEDICAID, SELFPAY | PROVIDERS: PCP Nurse Practitioner Family; Visit Provider Anesthesiology | DX: G89.4 Chronic pain syndrome (principal); Z96.89 Presence of other specified functional implants; Z72.0 Tobacco use | CPT/HCPCS: 99212 ==